=== PATIENT | male | born 1955 | race Caucasian/White ===

== ENCOUNTER 2020-04-11 12:49 | Emergency (ER) | payer OTHER, SELFPAY ==
[2020-04-11 13:00] VITALS: BP 139/92; PULSE 80; RESP 16; TEMP 36.9; O2SAT 98
--- NOTE | 2020-04-11 13:14 | ED.GENADULT ---
HPI - General Adult General Chief complaint: Ear Stated complaint: Clogged Ear Time Seen by Provider: 04/11/20 13:14 Source: patient and RN notes reviewed Mode of arrival: ambulatory Limitations: no limitations History of Present Illness HPI narrative: 64-year-old male presents with complaints of left ear being clogged with trouble hearing for 1 day. Believes it is due to earwax build up. Hydroperoxide with little to no relief. Some itching. Denies drainage, pain, or discomfort. Denies swimming or getting water into ear. Denies URI symptoms. No high fevers or chills. Denies injury to the ear. No nasal drainage and congestion. Denies nausea, vomiting, tinnitus, and dizziness. The patient reports he have not been diagnosed with COVID-19. The patient reports he is not waiting for the results of a COVID-19 lab test. The patient reports he do not have fever, weakness, fatigue, myalgia, or facial swelling. The patient reports he do not have a new or worsening cough or shortness of breath. Denies chest pain. The patient reports he do not have any loss of taste, sore throat, abdominal pain, and diarrhea. Tolerating po intake well. Denies recent traveling. Denies concerns for COVID-19 or exposures been home with limited outdoor exposure except for essential household needs and return home. At this time, patient is not suspected of having COVID-19. Some parts of this dictation were generated by voice recognition software and may contain typographical and/or grammatical inaccuracies. Related Data Home Medications Medication Instructions Recorded Confirmed alprazolam 0.5 mg tablet 0.5 mg PO BID 05/03/19 aspirin 81 mg tablet,delayed 81 mg PO DAILY 05/03/19 release buspirone 10 mg tablet 10 mg PO TID 05/03/19 calcium carbonate 500 mg calcium 500 mg PO DAILY 05/03/19 (1,250 mg) tablet citalopram 20 mg tablet 20 mg PO DAILY 05/03/19 niacin 500 mg tablet 500 mg PO DAILY 05/03/19 omega 6-bhy-gze-fish oil 1,000 mg 1 cap PO DAILY 05/03/19 (120 mg-180 mg) capsule sildenafil 100 mg tablet 100 mg PO DAILY PRN 05/03/19 testosterone cypionate 100 mg/mL 100 mg IM ONCE 05/03/19 intramuscular oil trazodone 50 mg tablet 50 mg PO BID 05/03/19 ibuprofen 600 mg tablet 600 mg PO TID 07/28/19 Allergies Allergy/AdvReac Type Severity Reaction Status Date / Time No Known Allergies Allergy Verified 11/10/19 09:34 Review of Systems Review of Systems: Narrative: CONSTITUTIONAL: Denies fever, chills, sweats. EYES: Denies visual changes, redness, discharge. ENT: Denies rhinorrhea, congestion, sore throat otalgia. Complains of left ear being clogged with trouble hearing. CARDIOVASCULAR: Denies chest pain, palpitations, edema. RESPIRATORY: Denies dyspnea, wheezing, cough. GASTROINTESTINAL: Denies abdominal pain, nausea, vomiting, diarrhea. SKIN: Denies rash or itching. MUSCULOSKELETAL: Denies acute back pain, joint pain, or myalgia. NEUROLOGIC: Denies numbness or focal weakness. PSYCHIATRIC: Denies anxiety or depression. All systems reviewed & are unremarkable except as noted in HPI and below PMFSH Past Medical History Medical History (Updated 04/11/20 @ 13:39 by KAYODE Andres) Anxiety Bilateral renal cysts Elevated PSA Hernia Impotence of organic origin Kidney stones Mixed hyperlipidemia On temper mill roller drug therapy Testicular hypofunction Vitamin D deficiency Surgical History Surgical History (Updated 04/11/20 @ 13:27 by KAYODE Andres) History of cholecystectomy History of hernia surgery LT inguinal History of lithotripsy several times History of tonsillectomy Family History Family History (Updated 04/11/20 @ 13:28 by KAYODE Andres) Father , Car accident Family history of diabetes mellitus in first degree relative Family history of heart disease in male family member before age 55 Sibling Family history of diabetes mellitus in first degree relative Moth
== END 2020-04-11 13:44 | disposition home or self-care (01) ==
PROVIDERS: Emergency Provider Nurse Practitioner Family; PCP Internal Medicine
DX: H61.22 Impacted cerumen, left ear (principal); E78.2 Mixed hyperlipidemia; F41.9 Anxiety disorder, unspecified
CPT/HCPCS: 69210; 99212; G0463

== ENCOUNTER 2020-04-23 11:22 | Outpatient (CLI) | payer OTHER, SELFPAY ==
--- NOTE | ~2020-04-23 | XR_ITS ---
XR abdomen/kub 1V 04/23/2020 11:37 Indication: Renal stone Procedure: KUB Comparison: Comparison to multiple prior studies sequentially, with oldest reviewed study dated 02/20. Findings: Bowel gas pattern is nonobstructive. There are multiple bilateral renal stones. There are c holecystectomy clips. Moderate colonic fecal loading. No definite stones are identified in the expect ed course of ureters. Impression: 1: Bilateral nephrolithiasis. Reviewed, dictated and finalized at location B. Impression: 1: Bilateral nephrolithiasis.
== END 2020-04-23 11:23 | disposition home or self-care (01) ==
PROVIDERS: PCP Internal Medicine; Visit Provider Urology
DX: N20.0 Calculus of kidney (principal)
CPT/HCPCS: 74018

== ENCOUNTER 2020-12-22 13:22 | Emergency (ER) | payer MEDICARE, SELFPAY ==
[2020-12-22 13:31] VITALS: BP 138/94; PULSE 93; RESP 16; TEMP 36.3; O2SAT 98
--- NOTE | 2020-12-22 13:35 | ED.GENADULT ---
HPI - General Adult General Chief complaint: Urogenital-Male Stated complaint: uti Time Seen by Provider: 12/22/20 13:35 Source: patient and RN notes reviewed Mode of arrival: ambulatory Limitations: no limitations History of Present Illness HPI narrative: 65-year-old male presents with complaints of dysuria for the past 7 days. ?Kvng reports increasing burning over the past 72 hours. ?Dysuria consists of burning and urgency.? No treatment.? Denies fever or chills.? Denies nausea, vomiting, and abdominal pain.? Tolerating liquids well. ?No significant abdominal pain.? No genital discharge.? No concerns for STDs, has not had intercourse in 2 years. ?No flank pain.? Exacerbating factors consist of urinating.? Denies hematuria or genital ?bleeding. ?Remains active. ?The patient reports he has not been diagnosed with COVID-19. ?The patient reports he received 2 Pfizer COVID-19 vaccines. ?The patient reports he is not waiting for the results of a COVID-19 lab test. ?The patient reports he does not have weakness, fatigue, or myalgia. ?The patient reports she does not have a new or worsening cough or shortness of breath. ?Denies chest pain. ?The patient reports he does not have any rhinorrhea, congestion, sore throat, loss of taste and/or smell, and diarrhea. ?Denies concerns for COVID-19 or exposure. ?At this time, the patient is not suspected of having COVID-19. Some parts of this dictation were generated by voice recognition software and may contain typographical and/or grammatical inaccuracies. Related Data Home Medications Medication Instructions Recorded Confirmed alprazolam 0.5 mg tablet 0.5 mg PO BID 05/03/19 11/08/20 aspirin 81 mg tablet,delayed 81 mg PO DAILY 05/03/19 11/08/20 release buspirone 10 mg tablet 10 mg PO TID 05/03/19 11/08/20 calcium carbonate 500 mg calcium 500 mg PO DAILY 05/03/19 11/08/20 (1,250 mg) tablet citalopram 20 mg tablet 20 mg PO DAILY 05/03/19 11/08/20 niacin 500 mg tablet 500 mg PO DAILY 05/03/19 11/08/20 omega 1-tjj-oob-fish oil 1,000 mg 1 cap PO DAILY 05/03/19 11/08/20 (120 mg-180 mg) capsule trazodone 50 mg tablet 50 mg PO ONCE tablet 11/08/20 11/08/20 testosterone cypionate mg 12/22/20 Allergies Allergy/AdvReac Type Severity Reaction Status Date / Time No Known Allergies Allergy Verified 11/08/20 10:23 Review of Systems Review of Systems: Narrative: CONSTITUTIONAL: Denies fever, chills, sweats. EYES: Denies visual changes, redness, discharge. ENT: Denies rhinorrhea, congestion, sore throat, otalgia. CARDIOVASCULAR: Denies chest pain, palpitations, edema. RESPIRATORY: Denies dyspnea, wheezing, cough. GASTROINTESTINAL: Denies abdominal pain, nausea, vomiting, diarrhea. GENITOURINARY: Complains of dysuria (burning and urgency), Denies hematuria, abnormal discharge. SKIN: Denies rash or itching. MUSCULOSKELETAL: Denies acute back pain, joint pain, or myalgia. NEUROLOGIC: Denies numbness or focal weakness. PSYCHIATRIC: Denies anxiety or depression. All other systems reviewed are negative, except as documented in HPI and below. 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
== END 2020-12-22 13:58 | disposition home or self-care (01) ==
PROVIDERS: Emergency Provider Nurse Practitioner Family; PCP Internal Medicine
DX: R30.0 Dysuria (principal); R31.9 Hematuria, unspecified; F41.9 Anxiety disorder, unspecified; E78.2 Mixed hyperlipidemia
CPT/HCPCS: 81003; 87086; 99213; G0463

== ENCOUNTER → 2020-12-31 13:34 | Outpatient (CLI) | payer MEDICARE, SELFPAY ==
--- NOTE | ~2020-12-31 | XR_ITS ---
EXAMINATION: XR abdomen/kub 1V EXAM DATE: 12/31/2020 14:27 INDICATION: gross hematuria. TECHNIQUE: Frontal projection of the upper abdomen, frontal projection lower abdomen/pelvis for inter pretation. Correlation is made to CT same date. FINDINGS: Multiple large bilateral nonobstructing kidney stones identified. The L3 sclerotic focus i s also identified, indicated overlying the right pedicle. Sacral sclerotic focus also identified. Cho lecystectomy clips. Nonobstructive bowel gas pattern. Mild to moderate bony degenerative changes. Catie g bases unremarkable. IMPRESSION: 1. Large bilateral nephrolithiasis. 2. Sacral, L3 sclerotic foci, could be bone islands but L3 focus has increased in size compared to 2 015. Consider correlating with PSA. Reviewed, dictated and finalized at location A. IMPRESSION: 1. Large bilateral nephrolithiasis. 2. Sacral, L3 sclerotic foci, could be bone islands but L3 focus has increased in size compared to 2015. Consider correlating with PSA.
--- NOTE | ~2020-12-31 | CT_ITS ---
EXAMINATION: CT abdomen pelvis wo/w con EXAM DATE: 12/31/2020 14:27 INDICATION: Gross hematuria. TECHNIQUE: Spiral CT of the abdomen and pelvis was performed without contrast. The patient was then injected with small bolus intravenous Omnipaque 350, followed by delay of approximately 10 minutes to allow collecting system to opacify. A post contrast scan abdomen and pelvis was performed during inj ection of remaining contrast. A total of 130 cc intravenous contrast was administered. The dose-vanesa th product (DLP) for this examination was 1420.76 mGy-cm. The exposure was tailored according to pat ient size (auto mA exposure control), and iterative reconstruction (ASIR) was used as additional dose reduction technique. Comparison is made to prior examination from 01/17/2015. FINDINGS: Multiple sizable bilateral kidney stones, larger stone burden on the left with a nonobstruc ting left renal pelvic stone measuring up to 11 mm in size, and on the right up to 8 mm in size. No h ydronephrosis. There is a mildly dense 1 cm lesion in the midpole of the left kidney, most likely hem orrhagic cyst (in 2015 there is a nonhemorrhagic cyst in this location which was much larger at 2.6 c m). Largest cyst on today's exam is in the right kidney at 4.0 cm. The kidneys enhance symmetrically . The calyces and opacified portions of ureters are unremarkable, without filling defects or focal suspicious strictures. The bladder is unremarkable. Prostate measures 5.2 cm transverse dimension, moderately enlarged. The liver, spleen, adrenal glands and pancreas are unremarkable. There are cholecystectomy clips. T here is no retroperitoneal or pelvic lymphadenopathy. Small left inguinal fat-containing hernia. There is extensive colonic colonic diverticulosis. There is no adjacent inflammatory change to sugge st diverticulitis. There is a 3 cm duodenal diverticulum. Stomach and small bowel are unremarkable. There is expected amount of colonic stool. No free intraperitoneal gas. The heart is normal in si ze. There are no pericardial or pleural effusions. The lung bases are unremarkable. There is sclerotic focus in L3 measuring 10 mm (previously 4 mm). The sacral sclerotic focus measures 1.5 cm, does not appear changed. Difficult to entirely exclude osteoblastic disease. Consider correl ating with PSA. IMPRESSION: 1. Large bilateral nephrolithiasis. 2. Moderate prostatomegaly. 3. Left renal lesion most likely hemorrhagic cysts. 4. Increase in size of L3 sclerotic focus compared to 2015; osteoblastic disease not excludable. The larger sacral sclerotic focus is unchanged. 5. Extensive colonic diverticulosis. 6. Duodenal diverticulum. 7. Left inguinal small hernia. Reviewed, dictated and finalized at location A. IMPRESSION: 1. Large bilateral nephrolithiasis. 2. Moderate prostatomegaly. 3. Left renal lesion most likely hemorrhagic cysts. 4. Increase in size of L3 sclerotic focus compared to 2015; osteoblastic disea se not excludable. The larger sacral sclerotic focus is unchanged. 5. Extensive colonic diverticulosis. 6. Duodenal diverticulum. 7. Left inguinal small hernia.
[2020-12-31 14:01] LABS: Estimated Glomerular Filt Rate 47
== END ==
PROVIDERS: Visit Provider Nurse Practitioner Adult Health
DX: R31.0 Gross hematuria (principal); N20.0 Calculus of kidney; N40.0 Benign prostatic hyperplasia without lower urinary tract symptoms; K57.30 Diverticulosis of large intestine without perforation or abscess without bleeding; K40.90 Unilateral inguinal hernia, without obstruction or gangrene, not specified as recurrent; K57.10 Diverticulosis of small intestine without perforation or abscess without bleeding
CPT/HCPCS: 74018; 74178; Q9967

== ENCOUNTER 2021-01-28 08:32 | Outpatient (CLI) | payer MEDICARE, SELFPAY ==
--- NOTE | 2021-01-28 09:04 | ECG_ITS ---
Measurements Intervals [place] Rate: 73 P: 50 [place]: 171 QRS: 3 QRSD: 105 T: 29 QT: 365 QTc: 402 Interpretive Statements SINUS RHYTHM DELAYED PRECORDIAL R/S TRANSITION BORDERLINE ECG Electronically Signed On 01-28-2021 9:19:32 CDT by Heri Howard D.O.
[2021-01-28 09:34] LABS: INR 0.8; Prothrombin Time 11.5 Seconds (11.1-14.7)
[2021-01-28 09:35] LABS: Partial Thromboplastin Time 27.1 SECONDS (22.3-36.8)
== END 2021-01-28 08:33 | disposition home or self-care (01) ==
PROVIDERS: Visit Provider Urology
DX: Z01.810 Encounter for preprocedural cardiovascular examination (principal); E78.2 Mixed hyperlipidemia; N20.0 Calculus of kidney
CPT/HCPCS: 36415; 85610; 85730; 87086; 93005

== ENCOUNTER 2021-02-01 02:34 | Day surgery (SDC) | payer MEDICARE, SELFPAY ==
[2021-01-23 10:26] VITALS: BMI 23.4
--- NOTE | 2021-01-28 07:51 | PM.HPGS ---
History of Present Illness History of Present Illness Consent: Risks, benefits, and alternatives have been discussed and questions answered. Patient agrees to proceed with procedure. Chief complaint: left renal stone Narrative: Kvng Pino is a 65 year old male his undergone evaluation in our office for elevated PSA in the recent past. He recently developed hematuria and upper urinary tract imaging demonstrates stones in his left kidney up to 11 millimeters. He presents for left ESWL. He is aware of the risk including, but not limited to, adverse cardiopulmonary events, persistent stone fragments, fragments that required distal therapy, hematuria an injury to his kidney. Review of Systems Cardiovascular: Cardiovascular: Denies chest pain, Denies lightheadedness, Denies palpitations and Denies dyspnea Respiratory: Respiratory: Denies dyspnea Gastrointestinal: Gastrointestinal: Denies diarrhea, Denies nausea and Denies vomiting Genitourinary: Genitourinary: Denies hematuria and Denies dysuria Endocrine: Endocrine: Denies palpitations PMFSH Past Medical History Medical History Anxiety Bilateral renal cysts Elevated PSA Hernia Impotence of organic origin Kidney stones Mixed hyperlipidemia On rn long term care drug therapy Testicular hypofunction Viral illness Vitamin D deficiency Surgical History Surgical History History of cholecystectomy History of hernia surgery LT inguinal History of lithotripsy several times History of tonsillectomy Family History Family History Father , Car accident Family history of diabetes mellitus in first degree relative Family history of heart disease in male family member before age 55 Sibling Family history of diabetes mellitus in first degree relative Mother , Multiple myeloma Family history of heart disease in male family member before age 55 Other Diabetes mellitus Family history of cardiovascular disease Family history of malignant neoplasm Hypertension Social History Social History Smoking status: Never smoker Second hand tobacco smoke exposure: No Alcohol intake: current Alcohol use details: rarely Substance use: never Additional living arrangements comments: Gender identity (if verbalized by the patient): Male Spiritual care concerns: No Meds Home Medications and Allergies Home Medications Medication Instructions Recorded Confirmed Type alprazolam 0.5 mg tablet 0.5 mg PO BID 05/03/19 01/23/21 History aspirin 81 mg tablet,delayed 81 mg PO DAILY 05/03/19 01/23/21 History release buspirone 10 mg tablet 10 mg PO TID 05/03/19 01/23/21 History calcium carbonate 500 mg calcium 500 mg PO BID 05/03/19 01/23/21 History (1,250 mg) tablet citalopram 20 mg tablet 20 mg PO QAM 05/03/19 01/23/21 History niacin 500 mg tablet 500 mg PO DAILY 05/03/19 01/23/21 History omega 7-ylo-kxl-fish oil 1,000 mg 1 cap PO BID 05/03/19 01/23/21 History (120 mg-180 mg) capsule trazodone 50 mg tablet 50 mg PO HS tablet 11/08/20 01/23/21 History atorvastatin 20 mg PO HS 01/23/21 01/23/21 History cholecalciferol (vitamin D3) 25 mcg PO DAILY 01/23/21 01/23/21 History Allergies Allergy/AdvReac Type Severity Reaction Status Date / Time No Known Allergies Allergy Verified 01/23/21 10:18 Exam Const: General: no acute distress Resp: Effort & Inspection: normal respiratory effort GI: Inspection: non-distended GI Palp: No abdominal tenderness and No Guarding due to palpation present (GI) Auscultation: normal bowel sounds Assessment and Plan Assessment and plan (1) Elevated PSA: Code(s): R97.20 - Elevated prostate specific antigen [PSA] Status: Acute (2) Bilateral kidney stones:
[2021-02-01] VITALS (8 sets, daily range): BP systolic 97–147; BP diastolic 73–92; PULSE 63–77; RESP 12–16; TEMP 36.2–36.5; O2SAT 95–99
--- NOTE | ~2021-02-01 | XR_ITS ---
XR abdomen/kub 1V 02/01/2021 07:37 Indication: Renal stones. Preop ESWL. Procedure: KUB Comparison: Comparison to multiple prior studies sequentially, with oldest reviewed study dated 03/31. Findings: Bowel gas pattern is nonobstructive. There are multiple bilateral renal stones, largest in the left kidney measuring approximately 13 mm maximum dimension. There are cholecystectomy clips. Mil d dextrocurvature of the lumbar spine. Mild lumbar spondylosis. Bowel gas pattern nonobstructive. Mod erate colonic fecal loading. Impression: 1: Bilateral nephrolithiasis. Reviewed, dictated and finalized at location A. Impression: 1: Bilateral nephrolithiasis.
--- NOTE | 2021-02-01 06:36 | WPDHPUPDATE1 ---
History and Physical Update Update Date/Time: 02/01/21 06:36 History and Physical has been reviewed, including an updated exam of the patient. There are NO changes in the patient's condition. Risks, benefits, and alternatives have been discussed and questions answered. Patient agrees to proceed with procedure.
--- NOTE | 2021-02-01 08:16 | WPDANESEPPF ---
Anes - Initial Pre Proc Eval Procedure: Operation Date: 02/01/21 09:30 Proposed Procedures p Left Renal Extracorporeal Shock Wave Lithotripsy - Baldev Vázquez MD Date/Time: 02/01/21 08:16 Surgeon: Baldev Vázquez MD Pre Op Diagnosis: left renal stone Patient Data Age: 65 Gender: M Height: 1.7 m Weight: 68 kg Allergies Allergy/AdvReac Type Severity Reaction Status Date / Time No Known Allergies Allergy Verified 01/23/21 10:18 Home Medications Medication Instructions Recorded Confirmed Type alprazolam 0.5 mg tablet 0.5 mg PO BID 05/03/19 01/23/21 History aspirin 81 mg tablet,delayed 81 mg PO DAILY 05/03/19 01/23/21 History release buspirone 10 mg tablet 10 mg PO TID 05/03/19 01/23/21 History calcium carbonate 500 mg calcium 500 mg PO BID 05/03/19 01/23/21 History (1,250 mg) tablet citalopram 20 mg tablet 20 mg PO QAM 05/03/19 01/23/21 History niacin 500 mg tablet 500 mg PO DAILY 05/03/19 01/23/21 History omega 9-oig-ujf-fish oil 1,000 mg 1 cap PO BID 05/03/19 01/23/21 History (120 mg-180 mg) capsule trazodone 50 mg tablet 50 mg PO HS tablet 11/08/20 01/23/21 History atorvastatin 20 mg PO HS 01/23/21 01/23/21 History cholecalciferol (vitamin D3) 25 mcg PO DAILY 01/23/21 01/23/21 History Patient hx anesthesia problems: none Family hx anesthesia problems: none PMFSH Past Medical History Medical History Anxiety Bilateral renal cysts Elevated PSA Hernia Impotence of organic origin Kidney stones Mixed hyperlipidemia On correction drug therapy Testicular hypofunction Viral illness Vitamin D deficiency Surgical History Surgical History History of cholecystectomy History of hernia surgery LT inguinal History of lithotripsy several times History of tonsillectomy Family History Family History Father , Car accident Family history of diabetes mellitus in first degree relative Family history of heart disease in male family member before age 55 Sibling Family history of diabetes mellitus in first degree relative Mother , Multiple myeloma Family history of heart disease in male family member before age 55 Other Diabetes mellitus Family history of cardiovascular disease Family history of malignant neoplasm Hypertension Social History Social History Smoking status: Never smoker Second hand tobacco smoke exposure: No Alcohol intake: current Alcohol use details: rarely Substance use: never Living arrangements: with family Additional living arrangements comments: Gender identity (if verbalized by the patient): Male Spiritual care concerns: No Anes - Eval Final PreProcedure Day of Procedure 02/01/21 08:16 Patient weight: normal Heart: regular rate and rhythm Lungs: clear to auscultation Airway: Mallampati scale class II Neurological: alert and oriented Last oral intake: >/= 8 hours ASA classification: II Emergent: no Anesthetic plan: proceed Anesthesia type and monitoring: general LMA and standard monitoring Informed Consent: The patient's anesthetic plan and its attendant risks and benefits were discussed with the patient/family/POA. Questions were solicited and answers provided to the satisfaction of the patient/family/POA.
[2021-02-01] MEDS: LACTATED RINGERS 1,000 ML 30 ML IV CONT (08:20)
[2021-02-01] MEDS: ceFAZolin 2 GM/D5W 50 ML 2 GM/50 ML BAG IVPB (09:13)
--- NOTE | 2021-02-01 09:33 | W.PM.PROC2 ---
Procedure Note - Detailed Date of Procedure 02/01/21 Pre-op Diagnosis Left renal stones Post-op Diagnosis same Procedure Performed Left ESWL Surgeon Baldev Vázquez MD Anesthesia general Description of Procedure The patient was brought to the operative suite where he was placed in the supine position on the Dornier lithotripsy table. The focal point of the lithotripter was placed at a 13mm left lower pole calculus. A total of 2500 shocks were delivered at a power setting of 4. There appeared to be good fragmentation of the stone. The patient tolerated the procedure well and was taken to the recovery room in good condition. Estimated Blood Loss 0 Drains No Packing No Pathology none sent Complications No immediate complications Condition stable Disposition PACU
== END 2021-02-01 11:11 | disposition home or self-care (01) ==
PROVIDERS: Visit Provider Urology
PROC: (CPT 50590; principal; 2021-02-01 09:30)
DX: N20.0 Calculus of kidney (principal); E78.2 Mixed hyperlipidemia; R97.20 Elevated prostate specific antigen [PSA]; E55.9 Vitamin D deficiency, unspecified; F41.9 Anxiety disorder, unspecified; Z79.82 Long term (current) use of aspirin
CPT/HCPCS: 50590; 36415; 74018; 80053; 81001; 85025; 96361; 96365; 96375; 99284; J0690; J0696; J1100; J2270; J2405; J2704; J3010; J7030; J7120

== ENCOUNTER 2021-02-01 14:34 | Emergency (ER) | payer MEDICARE, SELFPAY ==
[2021-02-01 14:41] VITALS: BP 124/82; PULSE 61; RESP 16; TEMP 36.4; O2SAT 96
[2021-02-01 15:10] LABS: Basophils Percent Auto 0.2 % (0.2-1.2); Hematocrit 40.8 % (42.0-52.0); Hemoglobin 13.3 g/dL (14.0-18.0); Immature Granulocyte Absolute 0.23 K/mm3 (0.00-0.031); Immature Granulocyte Percent A 1.3 % (0-0.5); Lymphocytes Percent Auto 6.1 % (18.3-44.2); Mean Corpuscular HGB Conc 32.6 g/dl (32-36); Mean Corpuscular Hemoglobin 28.5 pg (26-34); Mean Corpuscular Volume 87.6 fl (80-100); Mean Platelet Volume 12.6 fl (7.4-10.4); Monocytes Absolute Auto 0.2 K/mm3 (0.1-0.6); Monocytes Percent Auto 1.3 % (2.6-8.5); Neutrophils Absolute Auto 16.4 K/mm3 (1.3-6.7); Neutrophils Percent Auto 91.1 % (45.5-73.1); Platelet Count Result 195 k/mm3 (150-375); Red Blood Count 4.66 M/mm3 (4.6-6.20); Red Cell Distribution Width 13.7 % (11.5-14.5)
[2021-02-01] MEDS: ONDANSETRON INJ 4 MG/2 ML VIAL IV PUSH (15:13)
[2021-02-01] MEDS: SODIUM CHLORIDE 0.9% IV 1,000 ML 999 ML IV CONT (15:13)
[2021-02-01] MEDS: FAMOTIDINE 20 MG/2 ML VIAL IV PUSH (15:13)
[2021-02-01] MEDS: MORPHINE SULFATE (*CRX) 4 MG/ML INJ IV PUSH (15:14)
[2021-02-01 15:22] LABS: Alanine Aminotransferase 29 U/L (4-50); Alkaline Phosphatase 79 U/L (38-126); Anion Gap 11 mmol/L (8-16); Aspartate Amino Transferase 26 U/L (17-59); Bilirubin,Total 1.2 mg/dL (0.2-1.3); Blood Urea Nitrogen 20 mg/dL (9-20); Calcium 9.2 mg/dL (8.4-10.2); Carbon Dioxide 23 mmol/L (22-30); Chloride 103 mmol/L (98-107); Estimated CRCL calculation 41 ml/min; Estimated Glomerular Filt Rate 47; Glucose 189 mg/dL (65-110); Potassium 4.3 mmol/L (3.4-5.0); Sodium 137 mmol/L (137-145)
[2021-02-01 15:38] LABS: Add Urine Microscopic? YES; Appearance Urine Cloudy (Clear); Bilirubin Urine Negative (Negative); Blood Urine 3+ (Negative); Color Urine Red (Yellow); Glucose Urine UA Negative (Negative); Ketones Urine Negative (Negative); Leukocyte Esterase Ur Negative LEU/UL (Negative); Mucus Urine Rare /lpf; Nitrate Urine Negative (Negative); Protein Urine 2+ mg/dL (Negative); RBC Urine >75 /hpf (0-2); Specific Grav Ur 1.016 (1.001-1.035); Urobilinogen Urine Negative mg/dL (<2.0)
--- NOTE | 2021-02-01 16:07 | ED.GENADULT ---
HPI - General Adult General Chief complaint: Urogenital-Male Stated complaint: outpt surgery this morning. extreme pain Time Seen by Provider: 02/01/21 14:42 Source: patient and RN notes reviewed Mode of arrival: ambulatory Limitations: no limitations History of Present Illness HPI narrative: Patient is 65-year-old male who presents with left flank pain status post lithotripsy this morning patient notes left flank pain status post lithotripsy this morning patient has taken hydrocodone but continues to have moderate aching pain with nausea denies other complaints presents slightly uncomfortable but nondistressed Related Data Home Medications Medication Instructions Recorded Confirmed alprazolam 0.5 mg tablet 0.5 mg PO BID 05/03/19 02/01/21 aspirin 81 mg tablet,delayed 81 mg PO DAILY 05/03/19 02/01/21 release buspirone 10 mg tablet 10 mg PO TID 05/03/19 02/01/21 calcium carbonate 500 mg calcium 500 mg PO BID 05/03/19 02/01/21 (1,250 mg) tablet citalopram 20 mg tablet 20 mg PO QAM 05/03/19 02/01/21 niacin 500 mg tablet 500 mg PO DAILY 05/03/19 02/01/21 omega 1-pqk-yip-fish oil 1,000 mg 1 cap PO BID 05/03/19 02/01/21 (120 mg-180 mg) capsule trazodone 50 mg tablet 50 mg PO HS tablet 11/08/20 02/01/21 atorvastatin 20 mg PO HS 01/23/21 02/01/21 cholecalciferol (vitamin D3) 25 mcg PO DAILY 01/23/21 02/01/21 Allergies Allergy/AdvReac Type Severity Reaction Status Date / Time No Known Allergies Allergy Verified 02/01/21 08:24 Review of Systems Review of Systems: All systems reviewed & are unremarkable except as noted in HPI and below PMFSH Past Medical History Medical History Anxiety Bilateral renal cysts Elevated PSA Hernia Impotence of organic origin Kidney stones Mixed hyperlipidemia On senior care drug therapy Testicular hypofunction Viral illness Vitamin D deficiency Surgical History Surgical History History of cholecystectomy History of hernia surgery LT inguinal History of lithotripsy several times History of tonsillectomy Family History Family History Father , Car accident Family history of diabetes mellitus in first degree relative Family history of heart disease in male family member before age 55 Sibling Family history of diabetes mellitus in first degree relative Mother , Multiple myeloma Family history of heart disease in male family member before age 55 Other Diabetes mellitus Family history of cardiovascular disease Family history of malignant neoplasm Hypertension Social History Social History Smoking status: Never smoker Second hand tobacco smoke exposure: No Alcohol intake: current Alcohol use details: rarely Substance use: never Additional living arrangements comments: Gender identity (if verbalized by the patient): Male Spiritual care concerns: No Exam Narrative: GENERAL: Well-appearing, well-nourished, and in no acute distress. HEAD: Normocephalic, atraumatic. EYES: PERRLA and EOMI. ENT: Nares clear, no rhinorrhea or epistaxis. Mucous membranes moist. CHEST: Clear to auscultation. No respiratory distress. No wheezes rales or rhonchi HEART: Regular rate and rhythm. No murmur heard. Normal peripheral pulses. ABDOMEN: Soft, nontender, nondistended EXTREMITIES: Normal range of motion. No edema. SKIN: Warm, dry, no rash. NEURO: No focal deficits. Alert and oriented x3. Cranial nerves II through XII grossly intact PSYCH: Normal mood and affect. Course Course Emergency Course: Patient in the room no distress aware of case findings treatment plan diagnosis felt appropriate for outpatient reevaluation aware of discussion with urology patient's evaluation was unremarkable he was hydrated given joaquim
--- NOTE | 2021-02-01 16:07 | PC.NURSE ---
called main lab at 1605 to ask if they had the urine on this pt, they said no, i repeated that the nurse just sent the urine down in tubes a little bit before my call and i asked again if they could check, they said yes okay they will run it, spoke with Tavon
[2021-02-01 17:08] VITALS: BP 110/74; PULSE 85; RESP 16; TEMP 36.6; O2SAT 95
== END 2021-02-01 17:20 | disposition home or self-care (01) ==
PROVIDERS: Emergency Medicine Emergency Medical Services; Emergency Provider Emergency Medicine; PCP Internal Medicine
DX: G89.18 Other acute postprocedural pain (principal); R10.9 Unspecified abdominal pain; E78.2 Mixed hyperlipidemia; E55.9 Vitamin D deficiency, unspecified; F41.9 Anxiety disorder, unspecified; Z79.82 Long term (current) use of aspirin; Z87.442 Personal history of urinary calculi
CPT/HCPCS: 36415; 80053; 81001; 85025; 96361; 96365; 96375; 99284; J0696; J2270; J2405; J7030

== ENCOUNTER 2021-02-06 04:14 | Inpatient (IN) | payer MEDICARE, SELFPAY ==
[2021-02-06] VITALS (9 sets, daily range): BP systolic 138–160; BP diastolic 80–94; PULSE 95–126; RESP 12–18; TEMP 36.3–38.4; O2SAT 94–100
--- NOTE | ~2021-02-06 | CT_ITS ---
EXAMINATION: CT abdomen pelvis wo con DATE: 02/06/2021 05:39 INDICATION: Fever. Recent lithotripsy. History of kidney stones. TECHNIQUE: Computed tomography (CT) of the abdomen and pelvis was performed without intravenous contr ast. Automated exposure control and iterative reconstruction technique were employed. Exam dose: 458 .54 mGy-cm total exam DLP. COMPARISON: 12/31/2020 CT abdomen pelvis without and subsequently with IV contrast material 02/01/2021 and 12/12/201902/2021 KUB examinations FINDINGS: Lingular and bilateral left greater than right lower lobe dependent atelectasis. Slight left pleural effusion. Normal heart size. No pericardial effusion. Status post cholecystectomy. No bile duct dilatation. No hepatic, pancreatic space-occupying mass lesion. No pancreatic calcification or ductal dilatation. Likely benign 12 mm splenic cyst. Normal splenic size. Normal morphology of the adrenal glands. Bilateral nonobstructive nephrolithiasis. No ureteral calculus or hydroureteronephrosis. Approximatel y 3.8 cm right renal cyst. There is a large posterolateral left perinephric hematoma, extending into the posterior perinephric s pace, with thickening of the anterior and posterior pararenal fascia on the left. Consider CT examina tion with IV contrast material to evaluate for possible active bleeding. There is abdominal aortic calcification but no aneurysm. No intraperitoneal or retroperitoneal or pel isaias mass lesion or adenopathy or ascites. There is prostate enlargement and calcification. The urinary bladder is unremarkable. Medially directed cecum consistent with retained cecal mesentery. Normal appendix. There are numerous diverticula of left and right colon; no CT evidence of diverticulitis. No bowel ob struction, bowel wall thickening, pneumatosis or intraperitoneal free air is evident. Sclerotic lesions of the third lumbar vertebral body and sacrum may be bone islands, but osteosclerot ic metastases are not definitively excluded; radionuclide bone scan can help differentiate these poss ibilities. IMPRESSION: Prominent left perinephric hematoma extending into the posterior perinephric space Bilateral nonobstructive nephrolithiasis 3.8 cm right renal cyst Status post cholecystectomy Normal appendix Extensive diverticulosis of left and right colon; no CT evidence of diverticulitis Reviewed, dictated and finalized at Location [facility]. Reviewed, dictated and finalized at location B. IMPRESSION: Prominent left perinephric hematoma extending into the posterior p erinephric space Bilateral nonobstructive nephrolithiasis 3.8 cm right renal cyst Status post cholecystectomy Normal appendix Extensive diverticulosis of left and right colon; no CT evidence of diverticuli tis
--- NOTE | ~2021-02-06 | XR_ITS ---
EXAMINATION: XR chest 1V portable DATE: 02/06/2021 06:14 INDICATION: Fever TECHNIQUE: frontal view of the chest was obtained. COMPARISON: CT abdomen dated 02/06/2021 FINDINGS: Linear discoid atelectasis in the right upper, left lower lobe and lingula. No other airspace opaciti es, pulmonary edema, pleural effusion or pneumothorax. The cardiomediastinal silhouette is normal. Ch olecystectomy clips in right upper quadrant. IMPRESSION: 1. Scattered discoid atelectasis. No acute cardiopulmonary disease. Reviewed, dictated and finalized at location A.
[2021-02-06 05:28] LABS: Add Urine Microscopic? YES; Appearance Urine Clear (Clear); Bilirubin Urine Negative (Negative); Blood Urine 1+ (Negative); Color Urine Straw (Yellow); Glucose Urine UA Negative (Negative); Ketones Urine Negative (Negative); Leukocyte Esterase Ur Negative LEU/UL (Negative); Nitrate Urine Negative (Negative); Protein Urine Negative (Negative); Urobilinogen Urine Negative mg/dL (<2.0); WBC Urine 0-3 /hpf
--- NOTE | 2021-02-06 05:34 | WPDEDEXPGENP ---
HPI - General Ped General Chief complaint: Fever Stated complaint: fever Time Seen by Provider: 02/06/21 05:01 History of Present Illness HPI narrative: Patient is a 65-year-old gentleman who presents the emergency department with chief complaint of fever. Patient reports that he recently had a lithotripsy procedure and has been passing stones patient states that he just finished up a course of Keflex and noticed today that he started running a fever. Tonight when the temperature had 102 he called his urologist exchange and they recommended the patient come to the emergency department. The patient took Tylenol prior to arrival and reports that he is feeling a little better right now but states that he is concerned since he had multiple stones that he was passing. Patient denies cough denies shortness of breath denies abdominal pain. Patient denies dysuria reports that he has had a reduction in the amount of stone fragments that he has been passing when he urinates. The patient reports that he has been vaccinated for COVID-19. Related Data Home Medications Medication Instructions Recorded Confirmed alprazolam 0.5 mg tablet 0.5 mg PO BID 05/03/19 02/01/21 aspirin 81 mg tablet,delayed 81 mg PO DAILY 05/03/19 02/01/21 release buspirone 10 mg tablet 10 mg PO TID 05/03/19 02/01/21 calcium carbonate 500 mg calcium 500 mg PO BID 05/03/19 02/01/21 (1,250 mg) tablet citalopram 20 mg tablet 20 mg PO QAM 05/03/19 02/01/21 niacin 500 mg tablet 500 mg PO DAILY 05/03/19 02/01/21 omega 1-vcy-jma-fish oil 1,000 mg 1 cap PO BID 05/03/19 02/01/21 (120 mg-180 mg) capsule trazodone 50 mg tablet 50 mg PO HS tablet 11/08/20 02/01/21 atorvastatin 20 mg PO HS 01/23/21 02/01/21 cholecalciferol (vitamin D3) 25 mcg PO DAILY 01/23/21 02/01/21 Allergies Allergy/AdvReac Type Severity Reaction Status Date / Time No Known Allergies Allergy Verified 02/01/21 08:24 Pediatric Review of Systems Review of Systems: A 10 system review of systems was completed on the patient and is negative except for what is stated in the HPI. Nursing and ancillary documentation was reviewed. 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 Testicular hypofunction Viral illness Vitamin D deficiency Surgical History Surgical History History of cholecystectomy History of hernia surgery LT inguinal History of lithotripsy several times History of tonsillectomy Family History Family History Father , Car accident Family history of diabetes mellitus in first degree relative Family history of heart disease in male family member before age 55 Sibling Family history of diabetes mellitus in first degree relative Mother , Multiple myeloma Family history of heart disease in male family member before age 55 Other Diabetes mellitus Family history of cardiovascular disease Family history of malignant neoplasm Hypertension Social History Social History Smoking status: Never smoker Second hand tobacco smoke exposure: No Alcohol intake: current Alcohol use details: rarely Substance use: never Additional living arrangements comments: Gender identity (if verbalized by the patient): Male Spiritual care concerns: No Pediatric Exam Narrative: Physical exam: GENERAL: Well-appearing, well-nourished, and in no acute distress. HEAD: Normocephalic, atraumatic. EYES: PERRLA and EOMI. ENT: Nares clear, no rhinorrhea or epistaxis. Mucous membranes moist. NECK: Supple. CHEST: Clear to auscultation. No respiratory distress. HEART: Regul
[2021-02-06 05:39] LABS: Specific Grav Ur 1.004 (1.001-1.035)
[2021-02-06] MEDS: ONDANSETRON INJ 4 MG/2 ML VIAL IV PUSH ×2 (06:36→20:38)
[2021-02-06] MEDS: SODIUM CHLORIDE 0.9% IV 1,000 ML 999 ML IV CONT (06:36)
[2021-02-06 06:48] LABS: Hematocrit 35.5 % (42.0-52.0); Hemoglobin 11.6 g/dL (14.0-18.0); Mean Corpuscular HGB Conc 32.7 g/dl (32-36); Mean Corpuscular Hemoglobin 28.6 pg (26-34); Mean Corpuscular Volume 87.4 fl (80-100); Platelet Count Result 217 k/mm3 (150-375); Red Blood Count 4.06 M/mm3 (4.6-6.20); Red Cell Distribution Width 13.5 % (11.5-14.5); White Blood Count 15.3 K/mm3 (4.5-10.0)
[2021-02-06 06:58] LABS: Alanine Aminotransferase 28 U/L (4-50); Albumin Level 4.2 g/dL (3.5-5.1); Alkaline Phosphatase 85 U/L (38-126); Anion Gap 7 mmol/L (8-16); Aspartate Amino Transferase 32 U/L (17-59); Bilirubin,Total 2.7 mg/dL (0.2-1.3); Blood Urea Nitrogen 21 mg/dL (9-20); Calcium 9.7 mg/dL (8.4-10.2); Carbon Dioxide 27 mmol/L (22-30); Chloride 103 mmol/L (98-107); Estimated Glomerular Filt Rate 47; Glucose 125 mg/dL (65-110); Lactic Acid Reflex 1.1 mmol/L (0.7-2.1); Potassium 4.6 mmol/L (3.4-5.0); Sodium 137 mmol/L (137-145)
[2021-02-06 08:20] LABS: Hematocrit 33.4 % (42.0-52.0); Hemoglobin 11.1 g/dL (14.0-18.0)
--- NOTE | 2021-02-06 09:06 | ADMGEN ---
This patient, Kvng Pino, was admitted to 3 [facility] Surg Room 327-01. Patient/family oriented to hospital policies and general routines including ID bracelet, bed and alarms, visiting hours, pain management, procedures, bathroom and other care routines, personal items, smoking policy, room service/diet, and visiting hours. Information on how to activate the Rapid Response Team has been discussed. Patient/Family are encouraged to report perceived risks to care and to ask questions if they do not understand what they are told or what they should do.
--- NOTE | 2021-02-06 09:25 | WPDURCON ---
Assessment and Plan Assessment and plan (1) Bilateral kidney stones: Code(s): N20.0 - Calculus of kidney Status: Acute Assessment and Plan: Patient states he has passed some stone particles, there are still stones in the left kidney, will re-evaluate with imaging in a few weeks to verify that stones have passed. He is schedule to do the right ESWL on 02/15/2021. (2) Perinephric hematoma: Code(s): S37.019A - Minor contusion of unspecified kidney, initial encounter Status: Acute Assessment and Plan: Will watch H&H q 6 and monitor creatinine over the next 24 hours, then decide when to re-image at that point in time. Continue IV fluids. Secondary to infection/ESWL. No plans for surger at this time. (3) UTI (urinary tract infection): Code(s): N39.0 - Urinary tract infection, site not specified Status: Acute Assessment and Plan: Continue IV antibiotics, will tailor to culture results, his WBC is decreasing, will continue to monitor. Urology Consult Note HPI Date Seen: 02/06/21 Requesting Physician: Baldev Vázquez MD Primary Care Provider: Kalin Lopez DO Consult Narrative Narrative: Kvng Pino is a 65 year old male who is s/p Left ESWL as of 02/01/[address] Vázquez. He came in through the ER with c/o of a fever of 102 that started last night accompanied by some nausea and left flank pain. He was previously on Keflex but finished it prior to the surgery. He reports passing some stone fragments and some mild hematuria, otherwise no abdominal pain, dysuria or difficulty with urination. His H&H initially on arrival was 11.6 and 35.5 and a repeat H&H was 11.1 and 33.4. Creatinine is 1.50, his baseline appears to be at 1.26 as of 11/2020. His WBC is elevated at 15.3 down from 18,000 on 02/01/2021. He is also tachycardic and hypertensive. His urine appears to be infected, blood and urine cultures are pending. CT scan on arrival shows prominent left perinephric hematoma extending into the post perinephric space and noted bilateral non obstructive stones. He also came to the ER after he was discharged from his procedure later that evening on 02/01/2021 for severe post op pain, he was given Morphine which helped and was sent home. Review of Systems Cardiovascular: Cardiovascular: Denies chest pain Respiratory: Respiratory: Reports no additional respiratory complaints Gastrointestinal: Gastrointestinal: Denies abdominal pain, Reports nausea and Denies vomiting Genitourinary: Genitourinary: Reports hematuria, Denies dysuria, Reports flank pain, Denies urinary frequency, Denies urinary hesitancy, Denies urinary incontinence and Denies urinary urgency [facility] Past Medical History Medical History Anxiety Bilateral renal cysts Elevated PSA Hernia Impotence of organic origin Kidney stones Mixed hyperlipidemia On skilled nursing drug therapy Testicular hypofunction Viral illness Vitamin D deficiency Surgical History Surgical History History of cholecystectomy History of hernia surgery LT inguinal History of lithotripsy several times History of tonsillectomy Family History Family History Father , Car accident Family history of diabetes mellitus in first degree relative Family history of heart disease in male family member before age 55 Sibling Family history of diabetes mellitus in first degree relative Mother , Multiple myeloma Family history of heart disease in male family member before age 55 Other Diabetes mellitus Family history of cardiovascular disease Family history of malignant neoplasm Hypertension Social History Social History Smoking status: Never smoker Second hand tobacco smoke exposure: No Alcohol intak
[2021-02-06] MEDS: DEXTROSE 5%/0.45% SOD CHL 1,000 ML 100 ML IV CONT ×2 (10:11→20:42)
[2021-02-06 13:21] LABS: Hematocrit 33.3 % (42.0-52.0); Hemoglobin 11.1 g/dL (14.0-18.0)
[2021-02-06] MEDS: ALPRAZolam (*CRX) 0.5 MG TABLET PO (16:32)
[2021-02-06] MEDS: busPIRone HCL 10 MG TABLET PO (17:43)
[2021-02-06] MEDS: CALCIUM CARBONATE (OSCAL) 500 MG TABLET PO (17:43)
[2021-02-06 19:43] LABS: Hematocrit 33.6 % (42.0-52.0); Hemoglobin 11.1 g/dL (14.0-18.0)
[2021-02-06] MEDS: ATORVASTATIN 20 MG TABLET PO (20:22)
[2021-02-06] MEDS: HYDROmorphone HCL INJ (*CRX) 1 MG/ML SYR 0.5 MG IV PUSH (20:43)
[2021-02-07 02:20] LABS: Basophils Percent Auto 0.1 % (0.2-1.2); Eosinophils Absolute Auto 0.1 K/mm3 (0-0.3); Eosinophils Percent Auto 0.3 % (0-4.4); Hematocrit 34.7 % (42.0-52.0); Hemoglobin 11.3 g/dL (14.0-18.0); Immature Granulocyte Absolute 0.11 K/mm3 (0.00-0.031); Immature Granulocyte Percent A 0.7 % (0-0.5); Lymphocytes Absolute Auto 1.29 K/mm3 (0.9-3.2); Lymphocytes Percent Auto 8.7 % (18.3-44.2); Mean Corpuscular HGB Conc 32.6 g/dl (32-36); Mean Corpuscular Hemoglobin 28.6 pg (26-34); Mean Corpuscular Volume 87.8 fl (80-100); Mean Platelet Volume 11.9 fl (7.4-10.4); Monocytes Absolute Auto 1.7 K/mm3 (0.1-0.6); Monocytes Percent Auto 11.4 % (2.6-8.5); Neutrophils Absolute Auto 11.7 K/mm3 (1.3-6.7); Neutrophils Percent Auto 78.8 % (45.5-73.1); Platelet Count Result 199 k/mm3 (150-375); Red Blood Count 3.95 M/mm3 (4.6-6.20); Red Cell Distribution Width 13.4 % (11.5-14.5); White Blood Count 14.9 K/mm3 (4.5-10.0)
[2021-02-07 03:11] LABS: Anion Gap 2 mmol/L (8-16); Blood Urea Nitrogen 15 mg/dL (9-20); Calcium 8.9 mg/dL (8.4-10.2); Carbon Dioxide 27 mmol/L (22-30); Chloride 106 mmol/L (98-107); Estimated CRCL calculation 51 ml/min; Estimated Glomerular Filt Rate > 60; Glucose 129 mg/dL (65-110); Potassium 4.4 mmol/L (3.4-5.0); Sodium 135 mmol/L (137-145)
[2021-02-07] MEDS: HYDROcodone/acetaminophen (*CRX) 5-325 MG TABLET 2 TAB PO (05:14)
[2021-02-07 06:00] VITALS: BP 151/96; PULSE 105; RESP 18; TEMP 36.8; O2SAT 94
[2021-02-07] MEDS: DEXTROSE 5%/0.45% SOD CHL 1,000 ML 100 ML IV CONT (06:20)
--- NOTE | 2021-02-07 06:47 | WPDUROPN2 ---
Progress Note: A&P Assessment and Plan (1) Perinephric hematoma: Code(s): S37.019A - Minor contusion of unspecified kidney, initial encounter Status: Acute (2) Bilateral kidney stones: Code(s): N20.0 - Calculus of kidney Status: Acute Assessment and Plan: Small to moderate size left perinephric hematoma following left ESWL. Patient's pain is improved and H&H were stable. He has been afebrile since admission. Targeting discharge mid-day today, if he ambulates and eats well this morning. Subjective Subjective Date/Time Seen: 02/07/21 06:47 Comfortable except for dislike of bed/pillow. Tolerating diet. Review of Systems Cardiovascular: Cardiovascular: Denies chest pain, Denies lightheadedness, Denies palpitations and Denies dyspnea Respiratory: Respiratory: Denies dyspnea Gastrointestinal: Gastrointestinal: Denies diarrhea, Denies nausea and Denies vomiting Genitourinary: Genitourinary: Denies hematuria and Denies dysuria Endocrine: Endocrine: Denies palpitations Exam Const: General: no acute distress Resp: Effort & Inspection: normal respiratory effort GI: Inspection: non-distended GI Palp: No abdominal tenderness and No Guarding due to palpation present (GI) Auscultation: normal bowel sounds Objective Data Vital Signs Vital Signs: Vital Signs - 24 hr 02/06/21 07:30 02/06/21 08:35 02/06/21 08:57 Temperature 99.1 F Pulse Rate 97 101 H Respiratory Rate 15 15 Blood Pressure 151/94 H 151/94 H Pulse Oximetry 100 96 02/06/21 09:08 02/06/21 14:00 02/06/21 14:48 Temperature 97.3 F L 97.3 F L Pulse Rate 97 107 H Respiratory Rate 12 16 Blood Pressure 154/89 H 138/83 Pulse Oximetry 97 95 98 02/06/21 22:00 02/07/21 06:00 Temperature 97.6 F 98.2 F Pulse Rate 95 105 H Respiratory Rate 16 18 Blood Pressure 144/83 H 151/96 H Pulse Oximetry 98 94 Intake/Output Intake/Output: Intake & Output 02/04/21 02/05/21 02/06/21 02/07/21 23:59 23:59 23:59 23:59 Intake Total 3380 1800 Output Total 900 1475 Balance 2480 325 Meds/Results Medications: Active Medications Generic Name Dose Route Start Last Admin Trade Name Freq PRN Reason Stop Dose Admin Hydrocodone Bitart/Acetaminophen 1 tab 02/07/21 05:00 Hydrocodone/Acetaminophen (*Crx) 5-325 Mg Tablet PO Q4H PRN Pain Rated 1-3 Hydrocodone Bitart/Acetaminophen 2 tab 02/07/21 05:00 02/07/21 05:14 Hydrocodone/Acetaminophen (*Crx) 5-325 Mg Tablet PO 2 tab Q4H PRN Administration Pain Rated 4-6 Alprazolam 0.5 mg 02/06/21 17:00 02/06/21 16:32 Alprazolam (*Crx) 0.5 Mg Tablet PO 0.5 mg BID EMMANUELLE Administration Atorvastatin Calcium 20 mg 02/06/21 21:00 02/06/21 20:22 Atorvastatin 20 Mg Tablet PO 20 mg HS EMMANUELLE Administration Buspirone HCl 10 mg 02/06/21 17:00 02/06/21 17:43 Buspirone Hcl 10 Mg Tablet PO 10 mg TID EMMANUELLE Administration Calcium Carbonate 500 mg 02/06/21 17:00 02/06/21 17:43 Calcium Carbonate (Oscal) 500 Mg Tablet PO 500 mg BID EMMANUELLE Administration Citalopram Hydrobromide 20 mg 02/07/21 09:00 Citalopram Hydrobromide 20 Mg Tablet PO QAM EMMANUELLE Hydromorphone HCl 0.5 mg 02/06/21 08:44 02/06/21 20:43 Hydromorphone Hcl Inj (*Crx) 1 Mg/Ml Syr IV PUSH 0.5 mg Q4H PRN Administration Pain Rated 7-10 Ceftriaxone Sodium/Dextrose 1 gm in 50 mls @ 100 mls/hr 02/07/21 09:00 Rocephin 1 Gm/D5w 50 Ml IVPB Q24H EMMANUELLE Dextrose/Sodium Chloride 1,000 mls @ 100 mls/hr 02/06/21 08:55 02/07/21 06:20 Dextrose 5% Sodium Chloride 0.45% IV CONT 100 mls/hr .Q10H EMMANUELLE Administration Naloxone HCl 0.1 mg 02/06/21 08:44 Naloxone Hcl 0.4 Mg/Ml Vial IV PUSH Q2M PRN Opiate Reversal Ondansetron HCl 4 mg 02/06/21 08:44 08/04/21 20:38 Ondansetron Inj 4 Mg/2 Ml Vial IV PUSH 4 mg Q6H PRN Administration Nausea And Vomiting Trazodone HCl 50 mg 02/06/21 15:54 Trazodone Hcl 50
[2021-02-07] MEDS: ALPRAZolam (*CRX) 0.5 MG TABLET PO (09:21)
[2021-02-07] MEDS: busPIRone HCL 10 MG TABLET PO (09:21)
[2021-02-07] MEDS: CALCIUM CARBONATE (OSCAL) 500 MG TABLET PO (09:22)
[2021-02-07] MEDS: CITALOPRAM HYDROBROMIDE 20 MG TABLET PO (09:22)
--- NOTE | 2021-02-07 10:43 | WPDCDIQUERY2 ---
CDI Query Clarification Request -UTI documented in urology consultation -urine culture not reflexed from [facility] -UTI not on 02/07 problem list -Pt is on Ceftriaxone IV daily Please clarify if UTI was ruled in or ruled out.
[2021-02-07 14:00] VITALS: BP 131/81; PULSE 98; RESP 16; TEMP 37; O2SAT 96
--- NOTE | 2021-02-11 17:33 | PM.DS ---
DS: Admitting Diagnosis Admitting Diagnosis Left renal calculi with perinephric hematoma DS: Discharge Diagnosis Discharge Diagnosis (1) Perinephric hematoma: Code(s): S37.019A - Minor contusion of unspecified kidney, initial encounter Status: Acute (2) Bilateral kidney stones: Code(s): N20.0 - Calculus of kidney Status: Acute DS: Summary Hospital Course Hospital Course: patient was admitted through the emergency department where he had presented following ESWL several days prior. He was complaining of abdominal / flank pain and subjective fevers. CT imaging demonstrated a small to moderate size left perinephric hematoma. He is admitted for serial H&H evaluation showed stability over time. Once tolerating a diet and ambulating he was discharged with plans to follow-up within 1. Time Spent with Patient Time attestation: Total time spent providing and/or coordinating discharge services:30min Exam Const: General: no acute distress Resp: Effort & Inspection: normal respiratory effort GI: Inspection: non-distended GI Palp: No abdominal tenderness and No Guarding due to palpation present (GI) Auscultation: normal bowel sounds Discharge Plan Discharge Attending physician on discharge: Baldev Vázquez Consulting providers: Serafin Nolan ; Debi Loza ; Papo Springer ; Neil Pino Discharging Clinician: Baldev Vázquez Patient Disposition: Home, Self-Care Activity: no shower Diet: as tolerated Discharge Instructions: No exertional physical activity (discussed with pt) x2 weeks. Patient Instructions: Antibiotic Form, Urinary Tract Infection in Men (DC) Stand Alone Forms: General Discharge Information Follow-up/Referrals: Baldev Vázquez MD [Physician] - 2 Weeks Discharge Medications: New hydrocodone-acetaminophen 5-325 mg tablet 1 - 2 tablet PO Q6H PRN (Reason: pain) Qty: 20 RF: 0 sulfamethoxazole-trimethoprim 800-160 mg tablet 1 tablet PO Q12H Qty: 6 RF: 0 Continued niacin 500 mg tablet 500 mg PO DAILY RF: 0 calcium carbonate [Calcium 500] 500 mg calcium (1,250 mg) tablet 500 mg PO BID RF: 0 alprazolam [Xanax] 0.5 mg tablet 0.5 mg PO BID RF: 0 citalopram [Celexa] 20 mg tablet 20 mg PO QAM RF: 0 buspirone 10 mg tablet 10 mg PO TID RF: 0 trazodone 50 mg tablet 50 mg PO HS PRN (Reason: Insomnia) RF: 0 atorvastatin 20 mg tablet 20 mg PO HS RF: 0 cholecalciferol (vitamin D3) 25 mcg (1,000 unit) Capsule 25 mcg PO DAILY RF: 0 hydrocodone-acetaminophen 5-325 mg tablet 1 - 2 tablet PO Q6H PRN (Reason: pain) Qty: 20 RF: 0 Held omega 1-xyo-hkn-fish oil [Fish Oil] 1,000 mg (120 mg-180 mg) capsule 1 cap PO BID RF: 0 Hold Instructions: Resume on 02/03/21. aspirin [Adult Low Dose Aspirin] 81 mg tablet,delayed release (DR/EC) 81 mg PO DAILY RF: 0 Hold Instructions: Resume on 02/03/21. Date of admission: 02/06/21 08:45 Primary Care Provider: Kalin Lopez Admitting Provider: Baldev Vázquez Attending physician on admission: Baldev Vázquez Condition: Guarded Prognosis
== END 2021-02-07 15:11 | disposition home or self-care (01) | DRG 700 ==
LOC: ANHED 06:47 → ANH3MEDSUR 08:10
PROVIDERS: Nurse Practitioner Adult Health; Admitting Provider Urology; Emergency Provider Emergency Medicine; PCP Internal Medicine; Visit Provider Urology
DX: N20.0 Calculus of kidney (principal); S37.012A Minor contusion of left kidney, initial encounter; Z98.890 Other specified postprocedural states; R50.9 Fever, unspecified; E78.2 Mixed hyperlipidemia; Z79.82 Long term (current) use of aspirin; Z79.899 Other long term (current) drug therapy
CPT/HCPCS: 36415; 71045; 74176; 80048; 80053; 81001; 83605; 85014; 85018; 85025; 87040; 96361; 96365; 96375; 99285; A9270; G0378; J0131; J0696; J1170; J2405; J7030

== ENCOUNTER 2021-02-12 13:06 | Outpatient (CLI) | payer MEDICARE, SELFPAY ==
--- NOTE | ~2021-02-12 | XR_ITS ---
EXAMINATION: XR abdomen/kub 1V INDICATION: Gross hematuria, recent lithotripsy TECHNIQUE: Supine views of the abdomen were obtained on 2 radiographs. COMPARISON: 02/01/2021 FINDINGS: A previously seen 12 mm stone projecting in the expected location of the left renal pelvis is no longer identified, consistent with interval lithotripsy. There are stable stones of the left ki dney lower pole measuring up to 6 mm. Bulging the lateral contour of the left kidney is consistent wi th perinephric hematoma identified on CT. There are stable stones of the right kidney measuring up to 6 mm. Cholecystectomy clips are noted. There is elevation of the right hemidiaphragm. Mild osteoarth ritis of the hips is noted. IMPRESSION: 1. Changes of interval lithotripsy with treatment of the previously described 12 mm stone projecting at the left renal pelvis. 2. Bilateral nephrolithiasis. Reviewed, dictated and finalized at location B. IMPRESSION: 1. Changes of interval lithotripsy with treatment of the previously described 1 2 mm stone projecting at the left renal pelvis. 2. Bilateral nephrolithiasis.
--- NOTE | ~2021-02-12 | CT_ITS ---
EXAMINATION: CT abdomen pelvis wo con DATE: 02/12/2021 13:28 INDICATION: Gross hematuria TECHNIQUE: Computed tomography (CT) of the abdomen and pelvis was performed without intravenous contr ast. Automated exposure control and iterative reconstruction technique were employed. Exam dose: 414 .98 mGy-cm total exam DLP. COMPARISON: 02/12/2021 KUB 02/06/[address] abdomen pelvis 12/31/2020 CT abdomen pelvis without and subsequently with IV contrast material FINDINGS: There is discoid atelectasis and/or scarring in the left lower lobe. Heart size is within n ormal range. No pericardial or pleural effusion. Status post cholecystectomy. No intrahepatic or extrahepatic bile duct or pancreatic duct dilatation. Approximately 4 cm right renal cyst. Bilateral nonobstructing nephrolithiasis. No ureteral calculus or hydroureteronephrosis. Again noted is a large perinephric left hematoma, with extension into the posterior perinephric space and retroperitoneum. Prostate enlargement and calcification. The urinary bladder is unremarkable. There are numerous diverticula scattered throughout the left and right colon; no CT evidence of diver ticulitis. No bowel obstruction, bowel wall thickening, pneumatosis or intraperitoneal free air. There is atherosclerotic calcification of the abdominal aorta and iliac arteries but no aneurysm. No intraperitoneal or retroperitoneal or pelvic mass lesion or adenopathy or ascites. Osteosclerotic lesions of right side of L3 vertebral body and left sacrum are stable since 02/2021. IMPRESSION: No significant change of left perinephric and retroperitoneal bleed since 02/2021 Bilateral nonobstructive nephrolithiasis 4 cm right renal cyst Status post cholecystectomy Reviewed, dictated and finalized at [facility]. Reviewed, dictated and finalized at location [facility]. IMPRESSION: No significant change of left perinephric and retroperitoneal blee d since 02/2021 Bilateral nonobstructive nephrolithiasis 4 cm right renal cyst Status post cholecystectomy
== END 2021-02-12 13:07 | disposition home or self-care (01) ==
PROVIDERS: PCP Internal Medicine; Visit Provider Urology
DX: R31.0 Gross hematuria (principal); N20.0 Calculus of kidney; N28.1 Cyst of kidney, acquired; Z90.49 Acquired absence of other specified parts of digestive tract
CPT/HCPCS: 74018; 74176

== ENCOUNTER 2021-03-19 11:27 | Outpatient (CLI) | payer MEDICARE, SELFPAY ==
--- NOTE | ~2021-03-19 | XR_ITS ---
XR abdomen/kub 1V DATE: 03/19/2021 11:46 INDICATION: Gross hematuria TECHNIQUE: AP projection, 2 views COMPARISON: 02/12/[address] abdomen FINDINGS: Stable multiple bilateral calcified renal stones since 02/12/2021. No apparent ureteral calc ified calculi. The left renal silhouette appears smaller since the 2020, which may be consistent with resolving perinephric hematoma. Status post cholecystectomy. No evidence of bowel obstruction. The psoas shadows are intact. No visceromegaly is noted otherwise. IMPRESSION: Bilateral nephrolithiasis Reviewed, dictated and finalized at [facility]. Reviewed, dictated and finalized at [facility]. IMPRESSION: Bilateral nephrolithiasis
== END 2021-03-19 11:28 | disposition home or self-care (01) ==
LOC: ANHIMG 11:33
PROVIDERS: PCP Internal Medicine; Visit Provider Urology
DX: R31.0 Gross hematuria (principal); N20.0 Calculus of kidney
CPT/HCPCS: 74018

== ENCOUNTER → 2021-04-27 02:28 | Outpatient (CLI) | payer MEDICARE, SELFPAY ==
[2021-04-27 18:07] LABS: SARS-CoV-2 RNA PCR Negative
== END ==
PROVIDERS: PCP Internal Medicine; Visit Provider Internal Medicine
DX: R68.89 Other general symptoms and signs (principal); Z20.822 Contact with and (suspected) exposure to COVID-19
CPT/HCPCS: C9803; U0003; U0005

== ENCOUNTER 2021-09-12 11:35 | Outpatient (CLI) | payer MEDICARE, SELFPAY ==
--- NOTE | ~2021-09-12 | XR_ITS ---
EXAMINATION: XR abdomen/kub 1V EXAM DATE: 09/12/2021 11:52 INDICATION: Calculus Of Kidney, Hx existing stones, no pain at this time . TECHNIQUE: Frontal projection of the upper abdomen, frontal projection lower abdomen/pelvis for inter pretation. Comparison is made to prior examination from 03/19/2021. FINDINGS: Bilateral nephrolithiasis measuring up to about 6 mm again noted, indicated. Cholecystecto my clips. Moderate amount of colonic stool. No dilated small bowel, no obstruction. Mild to moderate bony degenerative changes. IMPRESSION: Bilateral nephrolithiasis unchanged. Reviewed, dictated and finalized at location [facility]. 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
== END 2021-09-12 11:36 | disposition home or self-care (01) ==
LOC: ANHIMG 11:37
PROVIDERS: PCP Internal Medicine; Visit Provider Urology
DX: N20.0 Calculus of kidney (principal)
CPT/HCPCS: 74018

== ENCOUNTER 2022-03-19 12:21 | Outpatient (CLI) | payer MEDICARE, SELFPAY ==
--- NOTE | ~2022-03-19 | XR_ITS ---
EXAMINATION: XR abdomen/kub 1V INDICATION: Calculus of the kidneys TECHNIQUE: Supine views of the abdomen were obtained on 2 radiographs. COMPARISON: 09/12/2021 FINDINGS: There are at least six stones projecting in the right kidney, the largest of which measures 6 mm in the lower pole. There are at least six stones projecting in the left kidney, the largest whi ch measures 5 mm in the lower pole. No stones are identified along the expected courses of the ureter s or within the urinary bladder. The bowel gas pattern is normal. The visualized lung bases are clear . Bone islands are noted in the left sacrum and L3 vertebral body. IMPRESSION: 1. Stable bilateral nephrolithiasis. Reviewed, dictated and finalized at location [facility].
== END 2022-03-19 12:22 | disposition home or self-care (01) ==
PROVIDERS: PCP Internal Medicine; Visit Provider Urology
DX: N20.0 Calculus of kidney (principal)
CPT/HCPCS: 74018

== ENCOUNTER 2022-11-24 15:51 | Emergency (ER) | payer MEDICARE, SELFPAY ==
[2022-11-24 15:59] VITALS: BP 157/105; PULSE 91; RESP 18; TEMP 36.6; O2SAT 100
--- NOTE | 2022-11-24 16:02 | ED.SKABFB ---
HPI - Skin/Abscess/Foreign Bdy General Chief complaint: Skin/Abscess/Foreign Body Stated complaint: Insect Bite Time Seen by Provider: 11/24/22 15:59 Source: patient, RN notes reviewed and old records reviewed Mode of arrival: ambulatory Limitations: no limitations History of Present Illness HPI narrative: 67-year-old male presents to the [facility] with concerns over a tick bite to the left upper inner thigh. Patient states that he went fishing last Thursday and Thursday. Noticed on Thursday that he had some itching, pulled off a tick. Noticed some increased redness to the area this morning. States that he tried calling his doctor's office Related Data Home Medications Medication Instructions Recorded Confirmed alprazolam 0.5 mg tablet (Xanax) 0.5 mg PO BID 05/03/19 11/24/22 aspirin 81 mg tablet,delayed 81 mg PO DAILY 05/03/19 11/24/22 release (Adult Low Dose Aspirin) buspirone 10 mg tablet 10 mg PO TID 05/03/19 11/24/22 calcium carbonate 500 mg calcium 500 mg PO BID 05/03/19 11/24/22 (1,250 mg) tablet (Calcium 500) citalopram 20 mg tablet (Celexa) 20 mg PO QAM 05/03/19 11/24/22 niacin 500 mg tablet 500 mg PO DAILY 05/03/19 11/24/22 omega 7-tuk-svd-fish oil 1,000 mg 1 cap PO BID 05/03/19 11/24/22 (120 mg-180 mg) capsule (Fish Oil) trazodone 50 mg tablet 50 mg PO HS PRN Insomnia 11/08/20 11/24/22 cholecalciferol (vitamin D3) 25 25 mcg PO DAILY 01/23/21 11/24/22 mcg (1,000 unit) capsule Allergies Allergy/AdvReac Type Severity Reaction Status Date / Time No Known Allergies Allergy Verified 11/24/22 15:59 Review of Systems Review of Systems: All systems reviewed & are unremarkable except as noted in HPI and below Constitutional: Constitutional: Reports no additional constitutional complaints Eyes: Eyes: Reports no additional eye complaints ENT: Reports system reviewed and no additional complaints, except as documented Cardiovascular: Cardiovascular: Reports no additional cardiovascular complaints, Denies chest pain and Denies dyspnea Respiratory: Respiratory: Reports no additional respiratory complaints, Denies chest congestion, Denies cough and Denies dyspnea Gastrointestinal: Gastrointestinal: Reports no additional gastrointestinal complaints, Denies abdominal pain, Denies nausea and Denies vomiting Musculoskeletal: Musculoskeletal: Reports no additional musculoskeletal complaints Integumentary/Breasts: Skin/Breast: Reports as per HPI Neurologic: Reports system reviewed and no additional complaints, except as documented Psychiatric: Psychiatric: Reports no additional psychiatric complaints Allergic/Immunologic: Allergic/Immunologic: Reports no additional allergic/immunologic complaints PMFSH Past Medical History Medical History Acute subdural hematoma Anxiety Bilateral renal cysts Elevated PSA Hernia Impotence of organic origin Kidney stones Mixed hyperlipidemia On prison drug therapy Testicular hypofunction Viral illness Vitamin D deficiency Surgical History Surgical History History of cholecystectomy History of hernia surgery LT inguinal History of lithotripsy several times History of tonsillectomy Family History Family History Father , Car accident Family history of diabetes mellitus in first degree relative Family history of heart disease in male family member before age 55 Sibling Family history of diabetes mellitus in first degree relative Mother , Multiple myeloma Family history of heart disease in male family member before age 55 Other Diabetes mellitus Family history of cardiovascular disease Family history of malignant neoplasm Hypertension Social History Social History Smoking status: Never smoker Tobacco type: cigar
== END 2022-11-24 16:17 | disposition home or self-care (01) ==
PROVIDERS: Emergency Provider Nurse Practitioner; PCP Family Medicine
DX: S70.362A Insect bite (nonvenomous), left thigh, initial encounter (principal); W57.XXXA Bitten or stung by nonvenomous insect and other nonvenomous arthropods, initial encounter; E78.2 Mixed hyperlipidemia; E55.9 Vitamin D deficiency, unspecified; Z79.82 Long term (current) use of aspirin
CPT/HCPCS: 99213; G0463

== ENCOUNTER 2023-01-26 08:26 | Emergency (ER) | payer MEDICARE, SELFPAY ==
[2023-01-26 08:37] VITALS: BP 137/81; PULSE 117; RESP 16; TEMP 38.7; O2SAT 98
--- NOTE | 2023-01-26 09:00 | ED.URI ---
HPI - URI/Sore Throat General Chief Complaint: Upper Respiratory Infection Stated Complaint: Headache, chills Time Seen by Provider: 01/26/23 09:01 Source: patient and RN notes reviewed Mode of arrival: ambulatory Limitations: no limitations History of Present Illness HPI Narrative: 67-year-old male presented for complaint of body aches, chills, headache since yesterday. Denies nausea, vomiting, diarrhea, chest pain, palpitations, shortness of breath or wheezing. Taking Tylenol and ibuprofen without significant relief. States his was recently ill with what he thinks was a sinus infection. MD elicited complaint: cough Related Data Home Medications Medication Instructions Recorded Confirmed alprazolam 0.5 mg tablet (Xanax) 0.5 mg PO BID 05/03/19 01/26/23 aspirin 81 mg tablet,delayed 81 mg PO DAILY 05/03/19 01/26/23 release (Adult Low Dose Aspirin) buspirone 10 mg tablet 10 mg PO TID 05/03/19 01/26/23 calcium carbonate 500 mg calcium 500 mg PO BID 05/03/19 01/26/23 (1,250 mg) tablet (Calcium 500) citalopram 20 mg tablet (Celexa) 20 mg PO QAM 05/03/19 01/26/23 niacin 500 mg tablet 500 mg PO DAILY 05/03/19 01/26/23 omega 1-tze-gqw-fish oil 1,000 mg 1 cap PO BID 05/03/19 01/26/23 (120 mg-180 mg) capsule (Fish Oil) trazodone 50 mg tablet 50 mg PO HS PRN Insomnia 11/08/20 01/26/23 cholecalciferol (vitamin D3) 25 50 mcg PO DAILY 12/09/22 01/26/23 mcg (1,000 unit) capsule Allergies Allergy/AdvReac Type Severity Reaction Status Date / Time No Known Allergies Allergy Verified 01/26/23 08:32 Review of Systems Review of Systems: CONSTITUTIONAL: Endorses malaise, chills, sweats, fever EYES: Denies visual changes, redness, or discharge ENT: Reports rhinorrhea, congestion, denies sinus pain, otalgia, sore throat CARDIOVASCULAR: Denies chest pain, palpitations, edema RESPIRATORY: Reports cough, post nasal drainage. 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 Testicular hypofunction Viral illness Vitamin D deficiency Surgical History Surgical History History of cholecystectomy History of hernia surgery LT inguinal History of lithotripsy several times History of tonsillectomy Family History Family History Father , Car accident Family history of diabetes mellitus in first degree relative Family history of heart disease in male family member before age 55 Sibling Family history of diabetes mellitus in first degree relative Mother , Multiple myeloma Family history of heart disease in male family member before age 55 Other Diabetes mellitus Family history of cardiovascular disease Family history of malignant neoplasm Hypertension Social History Social History Smoking status: Never smoker Tobacco type: cigarettes Second hand tobacco smoke exposure: No Alcohol intake: current Alcohol use details: rarely Substance use: never Lack of Transportation: No Lack of Food: Never True Current Housing: I Have Housing Concerned About Future Housing: No Difficulty Paying Gas/Electric Bills: No Difficulty Paying for Meds: No Currently Unemployed: No Education: Trade/Vocational Certificate Difficulty w/ Childcare or Family Care: No Living arrangements: with family Additional living arrangements comments: Occupation/Education: retired Gender identity (if verbalized by the patient): Raymundo
== END 2023-01-26 09:20 | disposition home or self-care (01) ==
PROVIDERS: Emergency Provider Nurse Practitioner Family; PCP Family Medicine
DX: J02.0 Streptococcal pharyngitis (principal); Z20.822 Contact with and (suspected) exposure to COVID-19; E78.2 Mixed hyperlipidemia; F41.9 Anxiety disorder, unspecified; E55.9 Vitamin D deficiency, unspecified; Z79.82 Long term (current) use of aspirin
CPT/HCPCS: 87081; 87426; 87804; 87880; 99213; C9803; G0463

== ENCOUNTER 2023-03-24 15:08 | Outpatient (CLI) | payer MEDICARE, SELFPAY ==
--- NOTE | ~2023-03-24 | XR_ITS ---
EXAMINATION: XR abdomen/kub 1V INDICATION: Calculus of the kidney TECHNIQUE: Supine views of the abdomen were obtained on 2 radiographs. COMPARISON: 03/19/2022 FINDINGS: There are at least six stones of the right kidney which measure up to 6 mm and are not sign ificantly changed since the prior examination. There are approximately nine stones of the left kidney . The largest measures 7 mm in the lower pole and several demonstrate slight interval enlargement. No stones are identified along the expected courses of the ureters or within the urinary bladder. Starla cystectomy clips are noted. The bowel gas pattern is normal. IMPRESSION: 1. Bilateral nephrolithiasis with slight increase in size of several left-sided stones. 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
== END 2023-03-24 15:09 | disposition home or self-care (01) ==
PROVIDERS: PCP Family Medicine; Visit Provider Urology
DX: N20.0 Calculus of kidney (principal)
CPT/HCPCS: 74018

== ENCOUNTER 2023-04-18 08:32 | Emergency (ER) | payer MEDICARE, SELFPAY ==
[2023-04-18 08:45] VITALS: BP 119/89; PULSE 98; RESP 16; TEMP 37.2; O2SAT 100
--- NOTE | 2023-04-18 09:19 | ED.URI ---
HPI - URI/Sore Throat General Chief Complaint: Upper Respiratory Infection Stated Complaint: cough Time Seen by Provider: 04/18/23 09:07 Source: patient and RN notes reviewed Mode of arrival: ambulatory Limitations: no limitations History of Present Illness HPI Narrative: Patient presents today with a 2-3 day history of dry cough, congestion, postnasal drip. Denies any additional symptoms to include fever, sore throat, shortness of breath. No known sick contacts. He has tried Delsym without relief, but has tried some cough drops which did provide some mild relief. Related Data Home Medications Medication Instructions Recorded Confirmed alprazolam 0.5 mg tablet (Xanax) 0.5 mg PO BID 05/03/19 04/18/23 aspirin 81 mg tablet,delayed 81 mg PO DAILY 05/03/19 04/18/23 release (Adult Low Dose Aspirin) buspirone 10 mg tablet 10 mg PO TID 05/03/19 04/18/23 calcium carbonate 500 mg calcium 500 mg PO BID 05/03/19 04/18/23 (1,250 mg) tablet (Calcium 500) citalopram 20 mg tablet (Celexa) 20 mg PO QAM 05/03/19 04/18/23 niacin 500 mg tablet 500 mg PO DAILY 05/03/19 04/18/23 omega 4-nki-jvl-fish oil 1,000 mg 1 cap PO BID 05/03/19 04/18/23 (120 mg-180 mg) capsule (Fish Oil) trazodone 50 mg tablet 50 mg PO HS PRN Insomnia 11/08/20 04/18/23 cholecalciferol (vitamin D3) 25 50 mcg PO DAILY 12/09/22 04/18/23 mcg (1,000 unit) capsule Allergies Allergy/AdvReac Type Severity Reaction Status Date / Time No Known Allergies Allergy Verified 04/18/23 08:55 Review of Systems Review of Systems: CONSTITUTIONAL: Denies body aches, fever, chills, or sweats. EYES: Denies visual changes, redness, or discharge. ENT: Denies rhinorrhea, sore throat, or otalgia.+ congestion, postnasal drip CARDIOVASCULAR: Denies chest pain, palpitations, or edema. RESPIRATORY: Denies dyspnea.+ cough GASTROINTESTINAL: Denies abdominal pain, nausea, vomiting, or diarrhea. GENITOURINARY: Denies dysuria or hematuria. SKIN: Denies rash, itching, or wounds. MUSCULOSKELETAL: Denies back pain, joint pain, or myalgia. NEUROLOGIC: Denies headache, numbness, tingling, or weakness. PSYCH: Denies depression or anxiety. 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 Testicular hypofunction Viral illness Vitamin D deficiency Surgical History Surgical History History of cholecystectomy History of hernia surgery LT inguinal History of lithotripsy several times History of tonsillectomy Family History Family History Father , Car accident Family history of diabetes mellitus in first degree relative Family history of heart disease in male family member before age 55 Sibling Family history of diabetes mellitus in first degree relative Mother , Multiple myeloma Family history of heart disease in male family member before age 55 Other Diabetes mellitus Family history of cardiovascular disease Family history of malignant neoplasm Hypertension Social History Social History Smoking status: Never smoker Tobacco type: cigarettes Second hand tobacco smoke exposure: No Alcohol intake: current Alcohol use details: rarely Substance use: never Lack of Transportation: No Lack of Food: Never True Current Housing: I Have Housing Concerned About Future Housing: No Difficulty Paying Gas/Electric Bills: No Difficulty Paying for Meds: No Currently Unemployed: No Education: Trade/Vocational Certificate Difficulty w/ Childcare or Family Care: No Living arrangements: with family Additional living arrangements comme
== END 2023-04-18 09:26 | disposition home or self-care (01) ==
PROVIDERS: Emergency Provider Nurse Practitioner; PCP Family Medicine
DX: J06.9 Acute upper respiratory infection, unspecified (principal); E55.9 Vitamin D deficiency, unspecified; F41.9 Anxiety disorder, unspecified; Z79.82 Long term (current) use of aspirin
CPT/HCPCS: 99211; G0463

== ENCOUNTER 2023-05-16 16:24 | Emergency (ER) | payer MEDICARE, SELFPAY ==
[2023-05-16 16:33] VITALS: BP 149/98; PULSE 105; RESP 16; TEMP 37.2; O2SAT 98
--- NOTE | 2023-05-16 17:02 | ED.MALEGU ---
HPI - Male Genitourinary General Chief complaint: Urogenital-Male Stated complaint: Male Problems Time Seen by Provider: 05/16/23 16:44 Source: patient and RN notes reviewed Mode of arrival: ambulatory Limitations: no limitations History of Present Illness HPI Narrative: Patient presents today complaining of a 4 to five-day history of irritation at the tip of his penis with occasional dysuria and frequency. Denies abdominal pain, back pain, hematuria. History of bilateral kidney stones that have been stable since last year per his radiologist. Related Data Home Medications Medication Instructions Recorded Confirmed alprazolam 0.5 mg tablet (Xanax) 0.5 mg PO BID 05/03/19 05/16/23 aspirin 81 mg tablet,delayed 81 mg PO DAILY 05/03/19 05/16/23 release (Adult Low Dose Aspirin) buspirone 10 mg tablet 10 mg PO TID 05/03/19 05/16/23 calcium carbonate 500 mg calcium 500 mg PO BID 05/03/19 05/16/23 (1,250 mg) tablet (Calcium 500) citalopram 20 mg tablet (Celexa) 20 mg PO QAM 05/03/19 05/16/23 niacin 500 mg tablet 500 mg PO DAILY 05/03/19 05/16/23 omega 0-qcu-rji-fish oil 1,000 mg 1 cap PO BID 05/03/19 05/16/23 (120 mg-180 mg) capsule (Fish Oil) trazodone 50 mg tablet 50 mg PO HS PRN Insomnia 11/08/20 05/16/23 cholecalciferol (vitamin D3) 25 50 mcg PO DAILY 12/09/22 05/16/23 mcg (1,000 unit) capsule Allergies Allergy/AdvReac Type Severity Reaction Status Date / Time No Known Allergies Allergy Verified 05/16/23 16:27 Review of Systems Review of Systems: CONSTITUTIONAL: Denies body aches, fever, chills, or sweats. EYES: Denies visual changes, redness, or discharge. ENT: Denies rhinorrhea, congestion, sore throat, or otalgia. CARDIOVASCULAR: Denies chest pain, palpitations, or edema. RESPIRATORY: Denies cough or dyspnea. GASTROINTESTINAL: Denies abdominal pain, nausea, vomiting, or diarrhea. GENITOURINARY: + dysuria, frequency, urethral irritation. SKIN: Denies rash, itching, or wounds. MUSCULOSKELETAL: Denies back pain, joint pain, or myalgia. NEUROLOGIC: Denies headache, numbness, tingling, or weakness. PSYCH: Denies depression or anxiety. [facility] Past Medical History Medical History Acute subdural hematoma Anxiety Bilateral renal cysts Elevated PSA Hernia Impotence of organic origin Kidney stones Mixed hyperlipidemia On [facility] drug therapy Testicular hypofunction Viral illness Vitamin D deficiency Surgical History Surgical History History of cholecystectomy History of hernia surgery LT inguinal History of lithotripsy several times History of tonsillectomy Family History Family History Father , Car accident Family history of diabetes mellitus in first degree relative Family history of heart disease in male family member before age 55 Sibling Family history of diabetes mellitus in first degree relative Mother , Multiple myeloma Family history of heart disease in male family member before age 55 Other Diabetes mellitus Family history of cardiovascular disease Family history of malignant neoplasm Hypertension Social History Social History Smoking status: Never smoker Tobacco type: cigarettes Second hand tobacco smoke exposure: No Alcohol intake: current Alcohol use details: rarely Substance use: never Lack of Transportation: No Lack of Food: Never True Current Housing: I Have Housing Concerned About Future Housing: No Difficulty Paying Gas/Electric Bills: No Difficulty Paying for Meds: No Currently Unemployed: No Education: Trade/Vocational Certificate Difficulty w/ Childcare or Family Care: No Living arrangements: with family Additional living arrangements comments: Occupation/
== END 2023-05-16 17:08 | disposition home or self-care (01) ==
PROVIDERS: Emergency Provider Nurse Practitioner; PCP Family Medicine
DX: N30.01 Acute cystitis with hematuria (principal); E78.2 Mixed hyperlipidemia; Z79.899 Other long term (current) drug therapy; Z79.891 Long term (current) use of opiate analgesic; Z79.82 Long term (current) use of aspirin
CPT/HCPCS: 81003; 99213; G0463

== ENCOUNTER 2023-09-01 14:20 | Outpatient (CLI) | payer MEDICARE, SELFPAY ==
--- NOTE | ~2023-09-01 | XR_ITS ---
EXAMINATION: XR abdomen/kub 1V INDICATION: Calculus of the kidney TECHNIQUE: Supine views of the abdomen were obtained on 2 radiographs. COMPARISON: 03/24/2023 FINDINGS: There are at least three stable nonobstructing stones of the right kidney which measure up to 5 mm. There are multiple stable nonobstructing stones of the left kidney which measure up to 8 mm in the lower pole. No stones are identified along the expected courses of the ureters. The bowel gas pattern is normal. Cholecystectomy clips are noted. IMPRESSION: 1. Stable bilateral nephrolithiasis. 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
== END 2023-09-01 14:21 | disposition home or self-care (01) ==
LOC: ANHIMG 14:26
PROVIDERS: PCP Family Medicine; Visit Provider Urology
DX: N20.0 Calculus of kidney (principal)
CPT/HCPCS: 74018

== ENCOUNTER 2023-12-28 12:46 | Outpatient (CLI) | payer MEDICARE, SELFPAY ==
--- NOTE | 2023-12-28 12:54 | ECG_ITS ---
Test Date: 2023-12-28 13:13:21 Measurements Intervals [place] Rate: 100 P: 61 [place]: 155 QRS: 32 QRSD: 90 T: 57 QT: 321 QTc: 415 Interpretive Statements SINUS TACHYCARDIA ABNORMAL RHYTHM ECG No previous ECG available for comparison Electronically Signed On 12-28-2023 16:01:20 CDT by Cirilo Erickson M.D.
[2023-12-28 13:35] LABS: Partial Thromboplastin Time 28.7 Seconds (22.3-36.8); Prothrombin Time 13.3 Seconds (11.1-14.7)
== END 2023-12-28 12:47 | disposition home or self-care (01) ==
PROVIDERS: PCP Nurse Practitioner; Visit Provider Urology
DX: E78.00 Pure hypercholesterolemia, unspecified (principal); N20.0 Calculus of kidney; Z01.818 Encounter for other preprocedural examination
CPT/HCPCS: 36415; 85610; 85730; 87086; 93005

== ENCOUNTER 2024-01-01 00:42 | Day surgery (SDC) | payer MEDICARE, SELFPAY ==
[2023-12-24 09:21] VITALS: BMI 24.3
--- NOTE | 2023-12-24 09:31 | PC.NURSE ---
PRE-OP INSTRUCTIONS PLEASE READ CAREFULLY Report to the Outpatient Waiting Room, entrance under the green pavilion located off [facility], at time _0930_ on date _01/01/24_. Planned Procedure Time: _1130_. Time changes happen often and if your time is changed the preop area will call you the afternoon before. - You and your visitor will be asked to self-screen and do not enter if you have any COVID symptoms. - A mask is optional within the hospital at this time. Patients may have clear liquids (water, carbonated beverages, clear teas, apple juice) until 3 hours prior to surgery (0830 AM) with a maximum of 20 ounces. - No food from midnight until time of surgery Take the following medications with a SIP of water the morning of surgery: _ALPRAZOLAM, BUSPIRONE, CITALOPRAM_ DO NOT STOP ANY OF YOUR OTHER PRESCRIPTION MEDICATIONS PRIOR TO SURGERY ?EXCEPT THE FOLLOWING Medications to discontinue per DR. LAKHANI - _ASPIRIN 7 DAYS PRIOR (PER PATIENT), Date to take last dose 12/24/23_ Medications to discontinue per ANESTHESIA - _VITAMINS/SUPPLEMENTS 3 DAYS PRIOR TO SURGERY, Date to take last dose 12/28/23_ Please no make-up, nail yoruba, hairspray, perfume, deodorant, or body powder the day of surgery. No jewelry (including any body piercings) or valuables the day of surgery, leave them at home. Please take a shower or bath the night before, or the morning of, surgery with an antibacterial soap. Wear comfortable, loose fitting clothing. - Jewelry must be removed prior to entering the operating room. Rings and piercings that are not removed may be cut off. - The hospital will not accept responsibility for valuables. - Please leave all valuables, including medications, at home the day of surgery. If you are going home after surgery, a licensed pile driver operator barge mounted must drive you home. - NO public transportation without another adult if you receive anesthesia. - We recommend that an adult stay with you for 24 hours following discharge. - We also recommend that you do not drive, make important decision, drink alcoholic beverages, or take any drugs that were not prescribed by your health care provider for at least 24 hours after your discharge time. Follow any additional instructions given to you from your surgeon. If you or anyone in your household have experienced Covid symptoms in the past week, please notify your surgeon or the nurse liaison at the phone number below for possible testing. Telephone instructions given to _PATIENT_and asked if any additional questions and then verbalized understanding. Patient advised to call surgeon office or pre surgery nurse liaison [phone] if any additional questions.
--- NOTE | 2023-12-29 17:48 | PM.HPGS ---
History of Present Illness History of Present Illness Consent: Risks, benefits, and alternatives have been discussed and questions answered. Patient agrees to proceed with procedure. Chief complaint: Left Renal Stone Narrative: Kvng Pino is a 68 year old male who has had ESWL on 1 occasion in the past. For several months he is known to have bilateral stones with a greater burden on the left. He would several stones in the left kidney up to 8 mm. He is now decided to proceed with left ESWL after discussion of additional options. 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 Testicular hypofunction Viral illness Vitamin D deficiency Surgical History Surgical History History of cholecystectomy History of hernia surgery LT inguinal History of lithotripsy several times History of tonsillectomy Family History Family History Father , Car accident Family history of diabetes mellitus in first degree relative Family history of heart disease in male family member before age 55 Sibling Family history of diabetes mellitus in first degree relative Mother , Multiple myeloma Family history of heart disease in male family member before age 55 Other Diabetes mellitus Family history of cardiovascular disease Family history of malignant neoplasm Hypertension Social History Social History Smoking status: Never smoker Tobacco type: cigarettes Second hand tobacco smoke exposure: No Alcohol intake: current Alcohol use details: VERY RARE - STATES MAYBE COUPLE TIMES A YEAR Substance use: never Substance use type: does not use Lack of Transportation: No Lack of Food: Never True Current Housing: I Have Housing Concerned About Future Housing: No Difficulty Paying Gas/Electric Bills: No Difficulty Paying for Meds: No Currently Unemployed: No Education: Trade/Vocational Certificate Difficulty w/ Childcare or Family Care: No Living arrangements: with family Additional living arrangements comments: Occupation/Education: retired Gender identity (if verbalized by the patient): Male Sexual Orientation (if Verbalized by the Patient): Straight or Heterosexual Spiritual care concerns: No Meds Home Medications and Allergies Home Medications Medication Instructions Recorded Confirmed Type alprazolam 0.5 mg tablet (Xanax) 0.5 mg PO BID 05/03/19 12/24/23 History aspirin 81 mg tablet,delayed 81 mg PO DAILY 05/03/19 12/24/23 History release (Adult Low Dose Aspirin) buspirone 10 mg tablet 10 mg PO TID 05/03/19 12/24/23 History calcium carbonate (Calcium 500) 500 mg PO BID 05/03/19 12/24/23 History citalopram 20 mg tablet (Celexa) 20 mg PO QAM 05/03/19 12/24/23 History niacin 500 mg tablet 500 mg PO DAILY 05/03/19 12/24/23 History omega 0-eno-osj-fish oil 1,000 mg 1 cap PO BID 05/03/19 12/24/23 History (120 mg-180 mg) capsule (Fish Oil) trazodone 50 mg tablet 50 mg PO HS PRN Insomnia 11/08/20 12/24/23 History cholecalciferol (vitamin D3) 25 50 mcg PO DAILY 12/09/22 12/24/23 History mcg (1,000 unit) capsule atorvastatin 20 mg tablet 20 mg PO HS #90 tabs 12/15/23 12/24/23 Rx Allergies Allergy/AdvReac Type Severity Reaction Status Date / Time No Known Allergies Allergy Verified 12/24/23 09:19 Exam Const: General: no acu
[2024-01-01] VITALS (8 sets, daily range): BP systolic 126–148; BP diastolic 86–100; PULSE 67–87; RESP 14–16; TEMP 36.3–36.6; O2SAT 97–99
--- NOTE | ~2024-01-01 | XR_ITS ---
EXAMINATION: XR abdomen/kub 1V DATE: 01/01/2024 09:04 INDICATION: Kidney stones. TECHNIQUE: A supine view of the abdomen on 2 radiographs was obtained. COMPARISON: Abdomen radiographs 09/01/2023, CT abdomen and pelvis 02/12/2021 FINDINGS: There are multiple stones in each kidney measuring up to 6 mm on the right and 8 mm on the left. There are no dilated loops of bowel. Surgical clips in the right upper quadrant are likely from cholecystectomy. IMPRESSION: 1. Bilateral kidney stones. Reviewed, dictated and finalized at location A. IMPRESSION: 1. Bilateral kidney stones.
--- NOTE | 2024-01-01 06:16 | WPDHPUPDATE1 ---
History and Physical Update Update Date/Time: 01/01/24 06:16 History and Physical has been reviewed, including an updated exam of the patient. There are NO changes in the patient's condition. Risks, benefits, and alternatives have been discussed and questions answered. Patient agrees to proceed with procedure.
[2024-01-01] MEDS: LACTATED RINGERS 1,000 ML 30 ML IV CONT ×2 (09:55→11:43)
--- NOTE | 2024-01-01 10:48 | WPDANESEPPF ---
Anes - Initial Pre Proc Eval Procedure: Operation Date: 01/01/24 11:00 Proposed Procedures p Left Extracorporeal Shock Wave Lithotripsy - Baldev Vázquez MD Date/Time: 01/01/24 10:48 Surgeon: Baldev Vázquez MD Pre Op Diagnosis: Left Renal Stone Patient Data Age: 68 Gender: M Height: 1.68 m Weight: 67.5 kg Last Vital Signs Temp 36.6 C 01/01/24 09:15 Pulse 87 01/01/24 09:15 Resp 16 01/01/24 09:15 BP 128/86 01/01/24 09:15 Pulse Ox 97 01/01/24 09:15 O2 Del Method Room Air 01/01/24 09:15 Allergies Allergy/AdvReac Type Severity Reaction Status Date / Time No Known Allergies Allergy Verified 01/01/24 09:41 Home Medications Medication Instructions Recorded Confirmed Type alprazolam 0.5 mg tablet (Xanax) 0.5 mg PO BID 05/03/19 12/24/23 History aspirin 81 mg tablet,delayed 81 mg PO DAILY 05/03/19 12/24/23 History release (Adult Low Dose Aspirin) buspirone 10 mg tablet 10 mg PO TID 05/03/19 12/24/23 History calcium carbonate (Calcium 500) 500 mg PO BID 05/03/19 12/24/23 History citalopram 20 mg tablet (Celexa) 20 mg PO QAM 05/03/19 12/24/23 History niacin 500 mg tablet 500 mg PO DAILY 05/03/19 12/24/23 History omega 7-hiq-exa-fish oil 1,000 mg 1 cap PO BID 05/03/19 12/24/23 History (120 mg-180 mg) capsule (Fish Oil) trazodone 50 mg tablet 50 mg PO HS PRN Insomnia 11/08/20 12/24/23 History cholecalciferol (vitamin D3) 25 50 mcg PO DAILY 12/09/22 12/24/23 History mcg (1,000 unit) capsule atorvastatin 20 mg tablet 20 mg PO HS #90 tabs 12/15/23 12/24/23 Rx Patient hx anesthesia problems: none Family hx anesthesia problems: none Results Review: All pre-operative results and documents have been reviewed as part of the pre-operative evaluation. 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 Testicular hypofunction Viral illness Vitamin D deficiency Surgical History Surgical History History of cholecystectomy History of hernia surgery LT inguinal History of lithotripsy several times History of tonsillectomy Family History Family History Father , Car accident Family history of diabetes mellitus in first degree relative Family history of heart disease in male family member before age 55 Sibling Family history of diabetes mellitus in first degree relative Mother , Multiple myeloma Family history of heart disease in male family member before age 55 Other Diabetes mellitus Family history of cardiovascular disease Family history of malignant neoplasm Hypertension Social History Social History Smoking status: Never smoker Tobacco type: cigarettes Second hand tobacco smoke exposure: No Alcohol intake: current Alcohol use details: VERY RARE - STATES MAYBE COUPLE TIMES A YEAR Substance use: never Substance use type: does not use Lack of Transportation: No Lack of Food: Never True Current Housing: I Have Housing Concerned About Future Housing: No Difficulty Paying Gas/Electric Bills: No Difficulty Paying for Meds: No Currently Unemployed: No Education: Trade/Vocational Certificate Difficulty w/ Childcare or Family Care: No Living arrangements: with family Additional living arrangements comments: Occupation/Education: retired Gender identity (if verbalized by the patient): Male Sexual Orientation (if Verbalized by the Patient): Straight or Heterosexual Spiritual care concerns: No Anes - Eval Final PreProcedure Day of Procedure 01/01/24 10:48 Patient weight: normal Heart: regular rate and
[2024-01-01] MEDS: ceFAZolin 2 GM/D5W 50 ML 2 GM/50 ML BAG IVPB (10:51)
--- NOTE | 2024-01-01 11:10 | W.PM.PROC2 ---
Procedure Note - Detailed Date of Procedure 01/01/24 Pre-op Diagnosis Left Renal Stones Post-op Diagnosis Same Procedure Performed Left ESWL Surgeon Baldev Vázquez MD Anesthesia General Description of Procedure The patient was brought to the operative suite where he was placed in the supine position on the Dornier lithotripsy table. he has several stones in his left kidney. Started delivering shock waves with couple small stones in the upper pole to some stones in the left lower pole. A total of 2500 shocks were delivered at a power setting of 4. There appeared to be good fragmentation of the stone. The patient tolerated the procedure well and was taken to the recovery room in good condition. Drains No Packing No Pathology None sent Condition Stable Disposition PACU
[2024-01-01] MEDS: oxyCODONE HCL (*CRX) 5 MG TAB IR PO (12:51)
== END 2024-01-01 13:25 | disposition home or self-care (01) ==
PROVIDERS: PCP Nurse Practitioner; Visit Provider Urology
PROC: (CPT 50590; principal; 2024-01-01 11:00)
DX: N20.0 Calculus of kidney (principal); F41.9 Anxiety disorder, unspecified; E78.2 Mixed hyperlipidemia; E55.9 Vitamin D deficiency, unspecified
CPT/HCPCS: 50590; 74018; A9270; J0690; J1100; J2250; J2405; J2704; J3010; J7120

== ENCOUNTER 2024-01-12 07:52 | Outpatient (CLI) | payer MEDICARE, SELFPAY ==
--- NOTE | ~2024-01-12 | XR_ITS ---
XR abdomen/kub 1V Ordering provider: Baldev Vázquez MD History: . 10 DAYS POST LEFT LITHROTRIPSY . Comparison: January 01, 2024 FINDINGS: BOWEL: Nonobstructive bowel gas pattern. ORGANOMEGALY: None. SIGNIFICANT PATHOLOGIC CALCIFICATIONS: Bilateral kidney stones. Left lower ureteric stone is noted. OTHER: No free air is seen under the diaphragm. IMPRESSION: NO ACUTE ABDOMINAL FINDINGS. Left lower ureteric stone. Bilateral kidney stones. Reviewed, dictated and finalized at location A.
== END 2024-01-12 07:53 | disposition home or self-care (01) ==
PROVIDERS: PCP Nurse Practitioner; Visit Provider Urology
DX: N20.2 Calculus of kidney with calculus of ureter (principal)
CPT/HCPCS: 74018

== ENCOUNTER 2024-04-23 10:29 | Outpatient (CLI) | payer MEDICARE, SELFPAY ==
--- NOTE | ~2024-04-23 | XR_ITS ---
XR abdomen/kub 1V 04/23/2024 10:42 Indication: Renal stones Procedure: KUB Comparison: 01/12/2024 Findings: There are stable bilateral renal stones. There is a centrally located calcification in the pelvis likely a bladder stone. There is a sclerotic lesion of the sacrum, possibly bone island. There are cholecystectomy clips. Bowel gas pattern nonobstructive. Moderate colonic fecal loading. Impression: 1: Bilateral nephrolithiasis. Possible bladder stone. Reviewed, dictated and finalized at location B. Impression: 1: Bilateral nephrolithiasis. Possible bladder stone.
== END 2024-04-23 10:30 | disposition home or self-care (01) ==
PROVIDERS: PCP Nurse Practitioner; Visit Provider Urology
DX: R97.20 Elevated prostate specific antigen [PSA] (principal)
CPT/HCPCS: 74018

== ENCOUNTER 2024-04-28 10:09 | Outpatient (CLI) | payer MEDICARE, SELFPAY ==
[2024-04-28 10:50] LABS: Anion Gap 8 mmol/L (4-12); Blood Urea Nitrogen 27 mg/dL (9-20); Calcium 9.2 mg/dL (8.4-10.2); Carbon Dioxide 30 mmol/L (22-30); Chloride 102 mmol/L (98-107); Estimated Glomerular Filt Rate 50; Glucose 90 mg/dL (65-110); Potassium 4.4 mmol/L (3.4-5.0); Sodium 140 mmol/L (137-145)
[2024-04-28 11:06] LABS: Prothrombin Time 13.5 Seconds (11.1-14.7)
[2024-04-28 11:07] LABS: Partial Thromboplastin Time 28.2 Seconds (22.3-36.8)
== END 2024-04-28 10:10 | disposition home or self-care (01) ==
PROVIDERS: Anesthesiology; PCP Nurse Practitioner; Visit Provider Urology
DX: Z01.812 Encounter for preprocedural laboratory examination (principal); N20.0 Calculus of kidney; N18.30 Chronic kidney disease, stage 3 unspecified
CPT/HCPCS: 36415; 80048; 85610; 85730; 87086

== ENCOUNTER 2024-05-06 03:02 | Day surgery (SDC) | payer MEDICARE, SELFPAY ==
--- NOTE | 2024-04-22 11:42 | P.HP_ITS ---
History of Present Illness History of Present Illness Consent: Risks, benefits, and alternatives have been discussed and questions answered. Patient agrees to proceed with procedure. Chief complaint: Right Kidney Stone Narrative: Kvng Pino is a 68 year old male with a long history of recurrent urolithiasis requiring multiple procedures the past. One memorable ESWL in February 2021 led to a small left perinephric hematoma. Most recently he has had ESWL in January 2024 to the left kidney. He now presents for ESWL to several stones in his right kidney measuring up to 5 mm. He is aware the risk including, not limited to, recurrent stones, need for additional procedures, hematuria and perinephric hematoma. 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 Testicular hypofunction Viral illness Vitamin D deficiency Surgical History Surgical History History of cholecystectomy History of hernia surgery LT inguinal History of lithotripsy several times History of tonsillectomy Family History Family History Father , Car accident Family history of diabetes mellitus in first degree relative Family history of heart disease in male family member before age 55 Sibling Family history of diabetes mellitus in first degree relative Mother , Multiple myeloma Family history of heart disease in male family member before age 55 Other Diabetes mellitus Family history of cardiovascular disease Family history of malignant neoplasm Hypertension Social History Social History Smoking status: Never smoker Tobacco type: cigarettes Second hand tobacco smoke exposure: No Alcohol intake: current Alcohol use details: VERY RARE - STATES MAYBE COUPLE TIMES A YEAR Substance use: never Substance use type: does not use Lack of Transportation: No Lack of Food: Never True Current Housing: I Have Housing Concerned About Future Housing: No Difficulty Paying Gas/Electric Bills: No Difficulty Paying for Meds: No Currently Unemployed: No Education: Trade/Vocational Certificate Difficulty w/ Childcare or Family Care: No Living arrangements: with family Additional living arrangements comments: Occupation/Education: retired Gender identity (if verbalized by the patient): Male Sexual Orientation (if Verbalized by the Patient): Straight or Heterosexual Spiritual care concerns: No Meds Home Medications and Allergies Home Medications Medication Instructions Recorded Confirmed Type alprazolam 0.5 mg tablet (Xanax) 0.5 mg PO BID 05/03/19 12/24/23 History aspirin 81 mg tablet,delayed 81 mg PO DAILY 05/03/19 12/24/23 History release (Adult Low Dose Aspirin) buspirone 10 mg tablet 10 mg PO TID 05/03/19 12/24/23 History calcium carbonate (Calcium 500) 500 mg PO BID 05/03/19 12/24/23 History citalopram 20 mg tablet (Celexa) 20 mg PO QAM 05/03/19 12/24/23 History niacin 500 mg tablet 500 mg PO DAILY 05/03/19 12/24/23 History omega 5-ruw-apz-fish oil 1,000 mg 1 cap PO BID 05/03/19 12/24/23 History (120 mg-180 mg) capsule (Fish Oil) trazodone 50 mg tablet 50 mg PO HS PRN Insomnia 11/08/20 12/24/23 History cholecalciferol (vitamin D3) 25 50 mcg PO DAILY 12/09/22 12/24/23 History mcg (1,000 unit) capsule atorvastatin 20 mg tablet 20 mg PO HS #90 tabs 12/15/23 12/24/23 Rx hydrocodone 5 mg-acetaminophen 325 1 - 2 tablet PO Q6H PRN pain #20 01/01/24 Rx mg tablet tabs Allergies Allergy/AdvReac Type Severity Reaction Status Date / Time No Known Allergies Allergy Verified 01/01/24 09:41 Exam Const: General: no acute distress Resp: Effort & Inspection: normal respiratory effort GI: Inspection: non-distended GI Palp: No abdominal tenderness and No Guarding due to palpation present (GI) Auscultation: normal bowel sounds Assessment and Plan Assessment and plan (1) Kidney stones: Code(s): N20.0 - Calculus of kidney Status: Acute Assessment and Plan: * Right ESWL
[2024-04-25 08:32] VITALS: BMI 23.1
--- NOTE | 2024-04-25 08:59 | PC.NURSE ---
Report to the Outpatient Waiting Room, entrance under the green pavilion located off [facility], at time __06:00am__ on date 05/06/24 . Planned Procedure Time: __07:30am .? Time changes happen often and if your time is changed the preop area will call you the afternoon before. - You and your visitor will be asked to self-screen and do not enter if you have any COVID symptoms. Please call surgeon if you need to reschedule. - A mask is optional within the hospital at this time. Patients may have clear liquids (water, carbonated beverages, clear teas, apple juice) until 3 hours prior to surgery with a maximum of 20 ounces. - No food from midnight until time of surgery and no smoking Take only the following medications with a SIP of water on the morning of surgery: __Buspirone, Citalopram, Hydroxyzine and Alprazolam as needed DO NOT STOP ANY OF YOUR OTHER PRESCRIPTION MEDICATIONS PRIOR TO SURGERY EXCEPT THE FOLLOWING Medications to discontinue per physician Hold all Aspirin and Vitamins/Supplements a week before per Dr Vázquez. (pt stated) Date to take last dose____04/28/24 Please no make-up, nail turkmen, hairspray, perfume, deodorant, or body powder the day of surgery.? No jewelry (including any body piercings) or valuables the day of surgery, leave them at home.? Please take a shower or bath the night before, or the morning of, surgery with an antibacterial soap.? Wear comfortable, loose fitting clothing. - Jewelry must be removed prior to entering the operating room.? Rings and piercings that are not removed may be cut off. - The hospital will not accept responsibility for valuables.? - Please leave all valuables, including medications, at home the day of surgery. If you are going home after surgery, a licensed hyster driver must drive you home.? - NO public transportation without another adult if you receive anesthesia. - We recommend that an adult stay with you for 24 hours following discharge. - We also recommend that you do not drive, make important decision, drink alcoholic beverages, or take any drugs that were not prescribed by your health care provider for at least 24 hours after your discharge time. Follow any additional instructions given to you from your surgeon. Telephone instructions given to __patient and asked if any additional questions and then verbalized understanding. Patient advised to call surgeon office or pre surgery nurse liaison [phone] if any additional questions.
[2024-05-06] VITALS (8 sets, daily range): BP systolic 121–148; BP diastolic 81–95; PULSE 65–79; RESP 12–18; TEMP 36.1; O2SAT 96–99; BMI 24.5
--- NOTE | ~2024-05-06 | XR_ITS ---
Supine and upright views of the abdomen Clinical history: Lithotripsy COMPARISON: 04/23/2024 Findings: Bowel gas pattern is nonspecific. No evidence for obstruction or free air. Multiple bilater al renal stones are again present, more numerous and larger in the right kidney as compared to the le ft. Questionable bladder stone again noted. Osseous structures are intact. Impression: Stable bilateral nephrolithiasis, right worse than left. Stable questionable bladder stone. Reviewed, dictated and finalized at location . Impression: Stable bilateral nephrolithiasis, right worse than left. Stable questionable bladder stone.
--- NOTE | 2024-05-06 06:31 | WPDHPUPDATE1 ---
History and Physical Update Update Date/Time: 05/06/24 06:31 History and Physical has been reviewed, including an updated exam of the patient. There are NO changes in the patient's condition. Risks, benefits, and alternatives have been discussed and questions answered. Patient agrees to proceed with procedure.
[2024-05-06] MEDS: LACTATED RINGERS 1,000 ML 30 ML IV CONT (06:35)
--- NOTE | 2024-05-06 06:48 | P.PNAN_ITS ---
Anes - Initial Pre Proc Eval Procedure: Operation Date: 05/06/24 07:30 Proposed Procedures p Right Extracorporeal Shock Wave Lithotripsy - Baldev Vázquez MD Date/Time: 05/06/24 06:48 Surgeon: Baldev Vázquez MD Pre Op Diagnosis: Right Kidney Stone Patient Data Age: 68 Gender: M Height: 1.68 m Weight: 69.05 kg Last Vital Signs Temp 36.1 C L 05/06/24 06:13 Pulse 73 05/06/24 06:13 Resp 16 05/06/24 06:13 BP 136/81 05/06/24 06:13 Pulse Ox 99 05/06/24 06:13 O2 Del Method Room Air 05/06/24 06:13 Allergies Allergy/AdvReac Type Severity Reaction Status Date / Time erythromycin base Allergy Mild Unknown Verified 05/06/24 06:27 Home Medications Medication Instructions Recorded Confirmed Type alprazolam 0.5 mg tablet (Xanax) 0.5 mg PO TID 05/03/19 04/25/24 History aspirin 81 mg tablet,delayed 81 mg PO DAILY 05/03/19 04/25/24 History release (Adult Low Dose Aspirin) buspirone 10 mg tablet 10 mg PO TID 05/03/19 04/25/24 History calcium carbonate (Calcium 500) 500 mg PO BID 05/03/19 04/25/24 History citalopram 20 mg tablet (Celexa) 20 mg PO QAM 05/03/19 04/25/24 History niacin 500 mg tablet 500 mg PO DAILY 05/03/19 04/25/24 History omega 1-xmp-fny-fish oil 1,000 mg 1 cap PO BID 05/03/19 04/25/24 History (120 mg-180 mg) capsule (Fish Oil) trazodone 50 mg tablet 50 mg PO HS PRN Insomnia 11/08/20 04/25/24 History cholecalciferol (vitamin D3) 25 50 mcg PO BID 12/09/22 04/25/24 History mcg (1,000 unit) capsule atorvastatin 20 mg tablet 20 mg PO HS #90 tabs 12/15/23 04/25/24 Rx hydrocodone 5 mg-acetaminophen 325 1 - 2 tablet PO Q6H PRN pain #20 01/01/24 04/25/24 Rx mg tablet tabs hydroxyzine HCl 25 mg tablet 25 mg PO TID 04/25/24 04/25/24 History potassium citrate 10 mEq (1,080 10 meq PO BID 04/25/24 04/25/24 History mg) tablet,extended release Patient hx anesthesia problems: none Family hx anesthesia problems: none Results Review: All pre-operative results and documents have been reviewed as part of the pre- operative evaluation. 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 Testicular hypofunction Viral illness Vitamin D deficiency Surgical History Surgical History History of cholecystectomy History of hernia surgery LT inguinal History of lithotripsy several times History of tonsillectomy Family History Family History Father , Car accident Family history of diabetes mellitus in first degree relative Family history of heart disease in male family member before age 55 Sibling Family history of diabetes mellitus in first degree relative Mother , Multiple myeloma Family history of heart disease in male family member before age 55 Other Diabetes mellitus Family history of cardiovascular disease Family history of malignant neoplasm Hypertension Social History Social History Smoking status: Never smoker Tobacco type: cigarettes Second hand tobacco smoke exposure: No Alcohol intake: never Alcohol use details: VERY RARE - STATES MAYBE COUPLE TIMES A YEAR Substance use: never Substance use type: does not use Lack of Transportation: No Lack of Food: Never True Current Housing: I Have Housing Concerned About Future Housing: No Difficulty Paying Gas/Electric Bills: No Difficulty Paying for Meds: No Currently Unemployed: No Education: Trade/Vocational Certificate Difficulty w/ Childcare or Family Care: No Living arrangements: with family Additional living arrangements comments: Occupation/Education: retired Gender identity (if verbalized by the patient): Male Sexual Orientation (if Verbalized by the Patient): Straight or Heterosexual Spiritual care concerns: No Anes - Eval Final PreProcedure Day of Procedure 05/06/24 06:48 Patient weight: normal Heart: regular rate and rhythm Lungs: clear to auscultation Airway: Mallampati scale class II Neurological: alert and oriented Last oral intake: >/= 8 hours ASA classification: II Emergent: no Anesthetic plan: proceed Anesthesia type and monitoring: general LMA and standard monitoring Results Review: All pre-operative results and documents have been reviewed as part of the pre- operative evaluation. Informed Consent: The patient's anesthetic plan and its attendant risks and benefits were discussed with the patient/family/POA. Questions were solicited and answers provided to the satisfaction of the patient/family/POA.
[2024-05-06] MEDS: ceFAZolin 2 GM/D5W 50 ML 2 GM/50 ML BAG IVPB (07:28)
--- NOTE | 2024-05-06 07:45 | W.PM.PROC2 ---
Procedure Note - Detailed Date of Procedure 05/06/24 Pre-op Diagnosis Right Kidney Stone Post-op Diagnosis Same Procedure Performed Right ESWL Surgeon Baldev Vázquez MD Anesthesia General Description of Procedure The patient was brought to the operative suite where he was placed in the supine position on the Dornier lithotripsy table. The focal point of the lithotripter was placed at a collection of stones in right lower pole. A total of 2500 shocks were delivered at a power setting of 4. There appeared to be good fragmentation of the stone. The patient tolerated the procedure well and was taken to the recovery room in good condition. Drains No Packing No Pathology None sent Complications No immediate complications
[2024-05-06] MEDS: oxyCODONE HCL (*CRX) 5 MG TAB IR PO (09:16)
== END 2024-05-06 09:55 | disposition home or self-care (01) ==
PROVIDERS: PCP Nurse Practitioner; Visit Provider Urology
PROC: (CPT 50590; principal; 2024-05-06 07:30)
DX: N20.0 Calculus of kidney (principal); E78.2 Mixed hyperlipidemia; E55.9 Vitamin D deficiency, unspecified; F41.9 Anxiety disorder, unspecified; Z79.82 Long term (current) use of aspirin
CPT/HCPCS: 50590; 74018; A9270; J0690; J1100; J2003; J2250; J2405; J2704; J3010; J7120

== ENCOUNTER 2024-05-17 10:30 | Outpatient (CLI) | payer MEDICARE, SELFPAY ==
--- NOTE | ~2024-05-17 | XR_ITS ---
XR abdomen/kub 1V Ordering provider: Baldev Vázquez MD History: . RIGHT KIDNEY STONE . Comparison: None. FINDINGS: BOWEL: Nonobstructive bowel gas pattern. ORGANOMEGALY: None. SIGNIFICANT PATHOLOGIC CALCIFICATIONS: Bilateral kidney stones more on the right side. Possibility of a stone in the urinary bladder is not excluded. OTHER: No free air is seen under the diaphragm. Degenerative changes of the spine. IMPRESSION: NO ACUTE ABDOMINAL FINDINGS. bilateral renal stones. Possible urinary bladder stone. Reviewed, dictated and finalized at location A. 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
== END 2024-05-17 10:31 | disposition home or self-care (01) ==
PROVIDERS: PCP Nurse Practitioner; Visit Provider Urology
DX: N20.0 Calculus of kidney (principal)
CPT/HCPCS: 74018

== ENCOUNTER 2024-08-14 11:12 | Emergency (ER) | payer MEDICARE, SELFPAY ==
[2024-08-14 11:24] VITALS: BP 157/80; PULSE 87; RESP 16; TEMP 36.4; O2SAT 99
--- NOTE | 2024-08-14 11:32 | ED.MALEGU ---
HPI - Male Genitourinary General Chief complaint: Urogenital-Male Stated complaint: urinary issue Time Seen by Provider: 08/14/24 11:30 Source: patient Mode of arrival: ambulatory Limitations: no limitations History of Present Illness HPI Narrative: Kvng is a 68-year-old male patient presenting to the clinic today with complaints pain to the tip of his penis for the past 2-3 days. He reports he was seen by urology and had a lithotripsy back in May and they stated that he had a small kidney stone still and his kidney that they did not to go in removed. Patient reports over the last few days he has had some discomfort to the tip of his penis and some bladder spasms. Contacted his urologist and they recommend him come in to be evaluated. Related Data Home Medications ?Medication ?Instructions ?Recorded ?Confirmed ?Last Taken ?Type alprazolam 0.5 mg tablet (Xanax) 0.5 mg PO TID 05/03/19 05/06/24 05/06/24 06:00 History aspirin 81 mg tablet,delayed 81 mg PO DAILY 05/03/19 05/06/24 04/28/24 History release (Adult Low Dose Aspirin) buspirone 10 mg tablet 10 mg PO TID 05/03/19 05/06/24 05/06/24 06:00 History citalopram 20 mg tablet (Celexa) 20 mg PO QAM 05/03/19 05/06/24 05/06/24 History 0600 niacin 500 mg tablet 500 mg PO DAILY 05/03/19 05/06/24 04/28/24 History omega 9-[id number]-fish oil 1,000 mg 1 cap PO BID 05/03/19 05/06/24 04/28/24 History (120 mg-180 mg) capsule (Fish Oil) trazodone 50 mg tablet 50 mg PO HS PRN Insomnia 11/08/20 04/25/24 02/03/21 History cholecalciferol (vitamin D3) 25 50 mcg PO BID 12/09/22 05/06/24 04/28/24 History mcg (1,000 unit) capsule hydroxyzine HCl 25 mg tablet 25 mg PO TID 04/25/24 04/25/24 Unknown History potassium citrate 10 mEq (1,080 10 meq PO BID 04/25/24 05/06/24 04/28/24 History mg) tablet,extended release Allergies Allergy/AdvReac Type Severity Reaction Status Date / Time erythromycin base Allergy Mild Unknown Verified 08/14/24 11:32 Review of Systems Review of Systems: Pertinent positives per HPI. Patient denies any fever, chills, rash, headache, visual changes, dizziness, cough, runny nose, sore throat, shortness of breath, chest pain, palpitations, nausea, vomiting, diarrhea, constipation, abdominal pain. [facility] Past Medical History Medical History Hernia Viral illness Anxiety Bilateral renal cysts Elevated PSA Impotence of organic origin Kidney stones Mixed hyperlipidemia On intermediate frame tender drug therapy Testicular hypofunction Vitamin D deficiency Surgical History Surgical History History of lithotripsy several times History of tonsillectomy History of hernia surgery LT inguinal History of cholecystectomy Family History Family History Father , Car accident Family history of diabetes mellitus in first degree relative Family history of heart disease in male family member before age 55 Sibling Family history of diabetes mellitus in first degree relative Mother , Multiple myeloma Family history of heart disease in male family member before age 55 Other Diabetes mellitus Family history of cardiovascular disease Family history of malignant neoplasm Hypertension Social History Social History Smoking status: Never smoker Tobacco type: cigarettes Second hand tobacco smoke exposure: No Alcohol intake: never Alcohol use details: VERY RARE - STATES MAYBE COUPLE TIMES A YEAR Substance use: never Substance use type: does not use Lack of Transportation: No Lack of Food: Never True Current Housing: I Have Housing Concerned About Future Housing: No Difficulty Paying Gas/Electric Bills: No Difficulty Paying for Meds: No Currently Unemployed: No Education: Trade/Vocational Certificate Difficulty w/ Childcare or Family Care: No Living arrangements: with family Additional living arrangements comments: Occupation/Education: retired Gender identity (if verbalized by the patient): Male Sexual Orientation (if Verbalized by the Patient): Straight or Heterosexual Spiritual care concerns: No Comments At the time of my signature, I reviewed and agree with the nursing past medical, surgical, social, and family history. There is no relevant family history pertinent to the patient complaint. Exam Narrative: General: Well-developed, well nourished, in no apparent distress. Head: Normocephalic, atraumatic. Cardio: Regular rate and rhythm, s1 and s2 normal, no murmur appreciated. Resp: Clear to auscultation bilaterally, no rhonchi, rales, wheezing or rubs. Abdomen: Soft, pliable, bowel sounds present in all quadrants, non-tender to palpation, no organomegly, no CVAT tenderness. : Circumcised male without corneal adhesions, no redness or swelling noted to the urethra or the glans penis, no discharge Course Course Emergency Course: Portions of this record may have been created with voice recognition software. Level of Care: Express Care Visit Vital Signs Vital signs: Vital Signs Temperature 36.4 C L 08/14/24 11:24 Pulse Rate 87 08/14/24 11:24 Respiratory Rate 16 08/14/24 11:24 Blood Pressure 157/80 H 08/14/24 11:24 Pulse Oximetry 99 08/14/24 11:24 Oxygen Delivery Room Air 08/14/24 11:24 Temperature 36.4 C L 08/14/24 11:24 Pulse Rate 87 08/14/24 11:24 Respiratory Rate 16 08/14/24 11:24 Blood Pressure 157/80 H 08/14/24 11:24 Pulse Oximetry 99 08/14/24 11:24 Oxygen Delivery Room Air 08/14/24 11:24 Vital signs reviewed MDM - Male Genitourinary MDM Narrative Medical decision making narrative: At the time of visit patient is resting comfortably on the exam table. Patient appears to be nontoxic. Labs: Urinalysis negative for any sign of infection or blood. Patient did pass a very small stone when he gave urine sample. Plan: I suspect patient was having bladder spasms/possible stone stuck in his ureter. Patient was able to pass the stone and his symptoms have resolved. Supportive measures were discussed with the patient and they voiced understanding discharge instructions and agrees to treatment plan. Return precautions reviewed Differential Diagnosis Differential diagnosis: Likely urinary tract infection, urethritis, epididymitis, prostatitis, acute retention of urine, inguinal hernia and other (Passed kidney stone) Lab Data Labs: Lab Results 08/14/24 Range/Units 11:39 POC Urine Color Yellow POC Urine Clarity Clear POC Urine pH 7.0 POC Ur Specif [place] 1.020 POC Urine Protein Negative (Negative) POC Ur Glucose (UA) Negative (Negative) POC Urine Ketones Negative (Negative) POC Urine Blood Negative (Negative) POC Urine Nitrite Negative (Negative) POC Urine Bilirubin Negative (Negative) POC Urine Urobilinogen 0.2 POC U Leukocyte Esteras Negative (Negative) Discharge Plan Discharge Clinical Impression: Kidney calculus Patient Disposition: Home, Self-Care Condition: Stable Instructions: Antibiotic Form, Kidney Stones (ED) Additional Instructions: Urinalysis is negative for any sign of blood or infection. You passed a kidney stone in the clinic today-this may have been caught near bladder or caught your urethra causing her symptoms Increase fluids and stay well hydrated Follow-up with your urologist/PCP as needed Patient Language: Nepali Prescriptions: No Action niacin 500 mg tablet 500 mg PO DAILY omega 9-gjs-[id number]-fish oil [Fish Oil] 1,000 mg (120 mg-180 mg) capsule 1 cap PO BID aspirin [Adult Low Dose Aspirin] 81 mg tablet,delayed release (DR/EC) 81 mg PO DAILY alprazolam [Xanax] 0.5 mg tablet 0.5 mg PO TID citalopram [Celexa] 20 mg tablet 20 mg PO QAM buspirone 10 mg tablet 10 mg PO TID trazodone 50 mg tablet 50 mg PO HS PRN (Reason: Insomnia) atorvastatin 20 mg tablet 20 mg PO HS Qty: 90 1RF Rx Instructions: TAKE 1 TABLET BY MOUTH DAILY hydroxyzine HCl 25 mg tablet 25 mg PO TID potassium citrate 10 mEq (1,080 mg) tablet extended release 10 meq PO BID cholecalciferol (vitamin D3) 25 mcg (1,000 unit) capsule 50 mcg PO BID Follow-up/Referrals: Harjeet Mcleod APRN [Primary Care Provider] - Time of Disposition: 11:43 Quality NIHSS Nursing Documentation ED NIHSS nursing documentation: reviewed/agree
[2024-08-14 11:42] LABS: EDUAAPPEAR Clear; EDUABILI Negative (Negative); EDUABLOOD Negative (Negative); EDUACOLOR1 Yellow; EDUAGLUCOSE Negative (Negative); EDUAKETONE Negative (Negative); EDUALEUKO Negative (Negative); EDUANITRATE Negative (Negative); EDUAPROTEIN Negative (Negative); EDUAUROBILI 0.2
== END 2024-08-14 11:45 | disposition home or self-care (01) ==
PROVIDERS: Emergency Provider Nurse Practitioner Family; PCP Nurse Practitioner
DX: N20.0 Calculus of kidney (principal); Z79.82 Long term (current) use of aspirin; F41.9 Anxiety disorder, unspecified; Z87.442 Personal history of urinary calculi; E55.9 Vitamin D deficiency, unspecified; Z79.899 Other long term (current) drug therapy; E78.2 Mixed hyperlipidemia
CPT/HCPCS: 81003; 99212; G0463

== ENCOUNTER 2024-10-26 11:06 | Outpatient (CLI) | payer MEDICARE, SELFPAY ==
--- NOTE | ~2024-10-26 | XR_ITS ---
XR abdomen/kub 1V Ordering provider: Baldev Vázquez MD History: . N20.0 - Calculus of kidney ANNUAL W/RECENT STONE PASS PER PT . Comparison: None. FINDINGS: BOWEL: Nonobstructive bowel gas pattern. ORGANOMEGALY: None. SIGNIFICANT PATHOLOGIC CALCIFICATIONS: Bilateral kidney stones. OTHER: No free air is seen under the diaphragm. Degenerative changes of the spine. Left sacroiliitis. IMPRESSION: NO ACUTE ABDOMINAL FINDINGS. Bilateral kidney stones. Reviewed, dictated and finalized at location A.
--- OUTSIDE RECORDS SUMMARY | 2024-10-26 13:05 | XMS_ITS | Patient Health Record ---
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 Role Phone Harsha SAHU, Harjeet Primary Care Provider UnavailLizzette Waldron Unavailable [phone] HemCassandra padilla Unavailable [phone] Migration, Provider Unavailable Unavailable Allergies No Known Allergies Results Component Value Reference Range Notes UDT Reviewed date:04/01/2024 01:27:04 PM Interpretation: Performing Lab: Notes/Report: THC N 0 - 50 ng/ml Cocaine N 0 - 300 ng/ml Amphetamine N 0 - 1000 ng/ml Buprenorphine (BUP) N 0 - 10 ng/ml Secobarbital (Bar) N 0 - 300 ng/ml Oxazepam (BZO) P 0 - 300 ng/ml 1-akzxgthiux-7,3-ebebydnp-5,3-diphenylpyrrolidine (VAN P) N 0 - 300 ng/ml Methamphetamine (MET) N 0 - 1000 ng/ml Methylenedioxymethamphetamine (MDMA) N 0 - 500 ng/ml Morphine (MOP 300/RWO2544) N 0 - 300 ng/ml Methadone (MTD) N 0 - 300 ng/ml Phencyclidine (PCP) N 0 - 25 ng/ml Nortriptyline (TCA) N 0 - 1000 ng/ml Oxycodone N 0 - 300 ng/ml x N 0 - 300 ng/ml Reason For Referral No Information Medications Medication SIG (Take, Route, Frequency, Duration) Notes Start Date End Date Status hydrOXYzine HCl 25 MG 1 tablet Orally tw ice a day for 90 days D/C TID dose Active traZODone HCl 50 MG 1 tablet at bedtime Oral at bedtime for 90 days Active busPIRone HCl 10 MG 1 tablet Oral Twice a day for 30 days d/c TID dose Active Citalopram Hydrobromide 20 MG 1 tablet Oral Once a day for 90 days Active Potassium Bicarb-Citric Acid Active ALPRAZolam 0.5 MG 1 tablet Oral three times a day for 30 days d/c BID dose 06/14/2024 Active Atorvastatin Calcium 20 MG Oral 09/25/2023 Active Immunizations Vaccine Route Administration Date Status Comme nts Influenza virus vaccine, quadrivalent (IIV4), split virus, 0.25 mL dosage Unknown 05/11/2016 Administered Influenza virus vaccine, quadrivalent (IIV4), split virus, 0.25 mL dosage Unknown 05/06/2018 Administered Influenza virus vaccine, quadrivalent (IIV4), split virus, 0.25 mL dosage Unknown 06/25/2021 Administered Influenza, seasonal, injecta ble, preservative free, 3 yrs and above Unknown 07/15/2012 Administered Influenza, seasonal, injecta ble, preservative free, 3 yrs and above Unknown 04/13/2014 Administered Influenza, unspecified formulation Unknown 07/07/2023 A dministered Novel [id number]-[id number], preservative free Unknown 05/08/2018 Administered Novel [id number]-[id number], preservative free Unknown 03/29/2020 Administered Pfizer Biontech Covid-19 Vac cine 2nd dose Unknown 11/06/2020 Administered Pfizer Biontech Covid-19 Vac cine 2nd dose Unknown 11/27/2020 Administered Pfizer [employer]ion[employer] Covid-19 Vac cine 2nd dose Unknown 06/25/2021 Administered Pneumococcal conjugate PCV 13 Unknown 07/07/2023 Admini stered Tdap Unknown 10/06/2015 Administered Zoster Unknown 05/11/2016 Administered Zoster Unknown 03/29/2020 Administered Zoster Unknown 05/28/2020 Administered Social History Tobacco Use: Social History Observation Description Date Details (start date - stop date) Never Smoker NA - NA Sex Assigned At : Social History Observation Description Sex Assigned At Male Household Question Answer Notes Marital status: Number of adults in household: 2 Level of education: retired Sexual History Question Answer Notes Had sex in the past 12 months (vaginal, oral, or anal)? Yes with Women only Tobacco Control (Standard) Question Answer Notes Tobacco use: Nonsmoker Additional Findings: Tobacco non-user Current no nsmoker AUDIT-C (Standard) Question Answer Notes Did you have a drink containing alcohol in the p ast year? 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) 4 Active confirmed Problem Panic disorder (172588014) Panic disorder [episodic paroxysmal anxiety] without agoraphobia (F41.0) 4 Active confirmed Problem 378345359 MDD (major depressive disorder), recurrent episode, moderate (F33.1) Active confirmed Vital Signs Heart Rate 84 /min 06/14/2024 Respiratory Rate 18 /min 04/15/2024 Height-cm 170.18 cm 06/14/2024 Blood pressure diastolic 85 mm Hg 06/14/2024 Weight-kg 68.04 kg 06/14/2024 Height 67.00 in 06/14/2024 Blood pressure systolic 143 mm Hg 06/14/2024 Weight 150 lbs 06/14/2024 BMI 23.49 kg/m2 06/14/2024 Encounters Encounter Location Date Provider Diagnosis [facility] [employer] [facility] [address] [facility] [address] [address] 04/19/2024 Cassandra Hemann Generalized anxiety disorder F41.1 ; Panic disorder [episodic paroxysmal anxiety] without agoraphobia F41.0 and MDD (major depressive disorder), recurrent episode, moderate F33.1 [facility] [employer] [facility] [address] [address] [address] 12/28/2023 Cassandra Hemann Generalized anxiety disorder F41.1 and Panic disorder [episodic paroxysmal anxiety] without agoraphobia F41.0 [facility] [employer] [facility] [employer] [address] 02/29/2024 Cassandra Hemann Generalized anxiety disorder F41.1 and Panic disorder [episodic paroxysmal anxiety] without agoraphobia F41.0 [facility] [employer] [facility] [address] [facility] [address] [address] 03/24/2024 Lizzette Thery Generalized anxiety disorder F41.1 ; Panic disorder [episodic paroxysmal anxiety] without agoraphobia F41.0 ; Primary insomnia F51.01 and Other [facility] (current) drug therapy Z79.899 [facility] [address] [place] [address] 04/01/2024 Lizzette Thery Generalized anxiety disorder F41.1 ; Panic disorder [episodic paroxysmal anxiety] without agoraphobia F41.0 ; Primary insomnia F51.01 ; Other [facility] (current) drug therapy Z79.899 and MDD (major depressive disorder), recurrent episode, moderate F33.1 [facility] [address] [place] [address] 04/07/2024 Cassandra Hemann Generalized anxiety disorder F41.1 and Panic disorder [episodic paroxysmal anxiety] without agoraphobia F41.0 [facility] [address] [place] [address] 04/15/2024 Lizzette Thery Generalized anxiety disorder F41.1 ; Panic disorder [episodic paroxysmal anxiety] without agoraphobia F41.0 ; Primary insomnia F51.01 ; Other 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 Z79.899 and MDD (major depressive disorder), recurrent episode, moderate F33.1 [facility] [address] [place] [address] 04/28/2024 Cassandra Hemann Generalized anxiety disorder F41.1 and MDD (major depressive disorder), recurrent episode, moderate F33.1 [facility] [address] [place] [address] 05/05/2024 Cassandra Hemann Generalized anxiety disorder F41.1 and MDD (major depressive disorder), recurrent episode, moderate F33.1 [facility] [address] [place] [address] 05/18/2024 Cassandra Hemann Generalized anxiety disorder F41.1 and MDD (major depressive disorder), recurrent episode, moderate F33.1 [facility] [address] [place] [address] 06/07/2024 Cassandra Hemann Generalized anxiety disorder F41.1 and MDD (major depressive disorder), recurrent episode, moderate F33.1 [facility] [address] [place] [address] 06/14/2024 Lizzette Leon Generalized anxiety disorder F41.1 ; Panic disorder [episodic paroxysmal anxiety] without agoraphobia F41.0 ; Primary insomnia F51.01 ; 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 Z79.899 and MDD (major depressive disorder), recurrent episode, moderate F33.1 [facility] [address] [place] [address] 07/07/2024 Cassandra Hemann Generalized anxiety disorder F41.1 and MDD (major depressive disorder), recurrent episode, moderate F33.1 [facility] [address] [place] [address] 08/10/2024 Cassandra Hemann Generalized anxiety disorder F41.1 and MDD (major depressive disorder), recurrent episode, moderate F33.1 [facility] [address] [place] [address] 11/05/2023 Provider Migration [facility], [facility] [address] [place] [address] 11/21/2023 Provider Migration [facility], [facility] [address] [place] [address] 11/22/2023 Provider Migration [facility] [employer], [facility] [address] [place] [address] 11/23/2023 Provider Migration [facility], [facility] [address] [place] [address] 01/08/2024 Lizzette Leon [facility], [facility] [address] [place] [address] 03/31/2024 Lizzette Leon [facility], [facility] [address] [place] [address] 03/31/2024 Lizzette Leon [facility], [facility] [address] [place] [address] 08/31/2024 Lizzette Leon Generalized anxiety disorder F41.1 Assessments Encounter Date Diagnosis (ICD Code) Assessment Notes Treatment Notes Treatment Clinical Notes Section Notes 12/28/2023 Generalized anxiety disorder (ICD-10 - F41.1) 12/28/2023 Panic disorder [episodic paroxysmal anxiety] without agoraphobia (ICD-10 - F41.0) 02/29/2024 Generalized anxiety disorder (ICD-10 - F41.1) 02/29/2024 Panic disorder [episodic paroxysmal anxiety] without agoraphobia (ICD-10 - F41.0) 03/24/2024 Generalized anxiety disorder (ICD-10 - F41.1) Learning About Generalized Anxiety Disorder material was published, Generalized Anxiety Disorder: Care Instructions material was published, Learning About Anxiety Disorders material was published Anxiety- increase anxiety with excessive worries Celexa 20 mg daily, will increase Xanax 0.5 mg three times a day Buspar 10 mg three times a day Panic- Xanax 0.5 mg three times a day Buspar 10 mg three times a day Primary insomnia- Trazodone 50 mg bedtime continue therapy http_s://www.kirk. org/Wibdy-Xvscpe-R llness/Mental-Heal th-Conditions http_s://psych[employer].com/depression /qrk-ktnmgekpc-xcm ihagu-ze-onqlndatj n#treatments http__s://www.nimh .nih.gov/health/to pics/mental-health -medications http__s://www.kirk .org/About-Mental- Illness/Treatments /Suiuyr-Hcugvj-Iio ications educated on all medications, benefits, side effects and risk, and educated on depression, anxiety, and ADHD, mood d/o and educated on compliance of medications, metabolic and movement d/o education appointment's, continue therapy discussion with patient about course of treatment and patient instructions. education on serotonin syndrome Discussed and educated pt regarding benzodiazepines are generally not intended for prolonged use and that use can cause tolerance, dependence, depression, and associated memory issues including dementias (this list is not exhaustive). Benzodiazepine use is generally not recommended concurrently with pain medications and/or other controlled substances educated on all medications, benefits, side effects and risk, and educated on depression, anxiety, and ADHD, mood d/o and educated on compliance of medications, metabolic and movement d/o education appointment is, continue therapy discussion with patient about course of treatment and patient instructions. education on serotonin syndrome SSRI/SNRI side effects discussed including but not limited to, gastric upset, nausea, vomiting, diarrhea and/or constipation, weight changes, sexual side effects including loss of libido, increased suicidal thoughts/behaviors in children and young adults, and serotonin syndrome. Medication Management and Follow-Up - Plan: - Schedule follow-up appointments every 1-3 months to monitor the patient's response to the medication regimen. - Reinforce the importance of avoiding recreational drug use due to potential neurotoxicity and interactions with prescribed medications. 03/24/2024 Panic disorder [episodic paroxysmal anxiety] without agoraphobia (ICD-10 - F41.0) Panic Attacks: Care Instructions material was published Anxiety- increase anxiety with excessive worries Celexa 20 mg daily, will increase Xanax 0.5 mg three times a day Buspar 10 mg three times a day Panic- Xanax 0.5 mg three times a day Buspar 10 mg three times a day Primary insomnia- Trazodone 50 mg bedtime continue therapy http_s://www.kirk. org/Gecmw-Jfzqvx-Y llness/Mental-Heal th-Conditions http_s://psychcent [employer].com/depression /bzq-vsvgkccoz-ewc mdcuz-uw-jmsypnjzd n#treatments http__s://www.nimh .nih.gov/health/to pics/mental-health -medications http__s://www.kirk .org/About-Mental- Illness/Treatments /Ybxebj-Wqvosd-Tms ications educated on all medications, benefits, side effects and risk, and educated on depression, anxiety, and ADHD, mood d/o and educated on compliance of medications, metabolic and movement d/o education appointment's, continue therapy discussion with patient about course of treatment and patient instructions. education on serotonin syndrome Discussed and educated pt regarding benzodiazepines are generally not intended for prolonged use and that use can cause tolerance, dependence, depression, and associated memory issues including dementias (this list is not exhaustive). Benzodiazepine use is generally not recommended concurrently with pain medications and/or other controlled substances educated on all medications, benefits, side effects and risk, and educated on depression, anxiety, and ADHD, mood d/o and educated on compliance of medications, metabolic and movement d/o education appointment is, continue therapy discussion with patient about course of treatment and patient instructions. education on serotonin syndrome SSRI/SNRI side effects discussed including but not limited to, gastric upset, nausea, vomiting, diarrhea and/or constipation, weight changes, sexual side effects including loss of libido, increased suicidal thoughts/behaviors in children and young adults, and serotonin syndrome. Medication Management and Follow-Up - Plan: - Schedule follow-up appointments every 1-3 months to monitor the patient's response to the medication regimen. - Reinforce the importance of avoiding recreational drug use due to potential neurotoxicity and interactions with prescribed medications. 04/01/2024 Generalized anxiety disorder (ICD-10 - F41.1) Learning About Generalized Anxiety Disorder material was published, Generalized Anxiety Disorder: Care Instructions material was published, Learning About Anxiety Disorders material was published depression- Celexa 20 mg daily Anxiety- increase anxiety with excessive worries- schedule therapy weekly Celexa 20 mg daily, Xanax 0.5 mg three times a day Buspar 10 mg three times a day Panic- ADD Vistaril 25 mg three times a day Xanax 0.5 mg three times a day Buspar 10 mg three times a day Primary insomnia- Trazodone 50 mg bedtime continue therapy http_s://www.kirk. org/Awkub-Hmffef-X llness/Mental-Heal th-Conditions http_s://psychcent [employer].com/depression /wkb-tbesxdxaa-iyj ywfyn-ij-jbiupzvkc n#treatments http__s://www.nimh .nih.gov/health/to pics/mental-health -medications http__s://www.kirk .org/About-Mental- Illness/Treatments /Uriwxu-Lgbdaz-Wfy ications educated on all medications, benefits, side effects and risk, and educated on depression, anxiety, and ADHD, mood d/o and educated on compliance of medications, metabolic and movement d/o education appointment's, continue therapy discussion with patient about course of treatment and patient instructions. education on serotonin syndrome Discussed and educated pt regarding benzodiazepines are generally not intended for prolonged use and that use can cause tolerance, dependence, depression, and associated memory issues including dementias (this list is not exhaustive). Benzodiazepine use is generally not recommended concurrently with pain medications and/or other controlled substances educated on all medications, benefits, side effects and risk, and educated on depression, anxiety, and ADHD, mood d/o and educated on compliance of medications, metabolic and movement d/o education appointment is, continue therapy discussion with patient about course of treatment and patient instructions. education on serotonin syndrome SSRI/SNRI side effects discussed including but not limited to, gastric upset, nausea, vomiting, diarrhea and/or constipation, weight changes, sexual side effects including loss of libido, increased suicidal thoughts/behaviors in children and young adults, and serotonin syndrome. Medication Management and Follow-Up - Plan: - Schedule follow-up appointments every 1-3 months to monitor the patient's response to the medication regimen. - Reinforce the importance of avoiding recreational drug use due to potential neurotoxicity and interactions with prescribed medications. 04/07/2024 Generalized anxiety disorder (ICD-10 - F41.1) 04/07/2024 Panic disorder [episodic paroxysmal anxiety] without agoraphobia (ICD-10 - F41.0) 04/15/2024 Generalized anxiety disorder (ICD-10 - F41.1) Learning About Generalized Anxiety Disorder material was published, Generalized Anxiety Disorder: Care Instructions material was published, Learning About Anxiety Disorders material was published depression- Celexa 20 mg daily Anxiety- has reported improvement wiht rx still have anxiety and worries - contibue therapy - schedule therapy weekly Celexa 20 mg daily, Xanax 0.5 mg three times a day Buspar 10 mg three times a day Panic- Vistaril 25 mg three times a day Xanax 0.5 mg three times a day Buspar 10 mg three times a day Primary insomnia- Trazodone 50 mg bedtime continue therapy http_s://www.kirk. org/Xixzx-Ayxnsc-F llness/Mental-Heal th-Conditions http_s://psychThinkorsw[employer].com/depression /ykn-ssjvcjwrq-ljx zzshf-je-kehlqyaki n#treatments http__s://www.nimh .nih.gov/health/to pics/mental-health -medications http__s://www.kirk .org/About-Mental- Illness/Treatments /Dvfdaf-Onntoa-Tow ications educated on all medications, benefits, side effects and risk, and educated on depression, anxiety, and ADHD, mood d/o and educated on compliance of medications, metabolic and movement d/o education appointment's, continue therapy discussion with patient about course of treatment and patient instructions. education on serotonin syndrome Discussed and educated pt regarding benzodiazepines are generally not intended for prolonged use and that use can cause tolerance, dependence, depression, and associated memory issues including dementias (this list is not exhaustive). Benzodiazepine use is generally not recommended concurrently with pain medications and/or other controlled substances educated on all medications, benefits, side effects and risk, and educated on depression, anxiety, and ADHD, mood d/o and educated on compliance of medications, metabolic and movement d/o education appointment is, continue therapy discussion with patient about course of treatment and patient instructions. education on serotonin syndrome SSRI/SNRI side effects discussed including but not limited to, gastric upset, nausea, vomiting, diarrhea and/or constipation, weight changes, sexual side effects including loss of libido, increased suicidal thoughts/behaviors in children and young adults, and serotonin syndrome. Medication Management and Follow-Up - Plan: - Schedule follow-up appointments every 1-3 months to monitor the patient's response to the medication regimen. - Reinforce the importance of avoiding recreational drug use due to potential neurotoxicity and interactions with prescribed medications. 04/28/2024 Generalized anxiety disorder (ICD-10 - F41.1) 04/28/2024 MDD (major depressive disorder), recurrent episode, moderate (ICD-10 - F33.1) 05/05/2024 Generalized anxiety disorder (ICD-10 - F41.1) 05/05/2024 MDD (major depressive disorder), recurrent episode, moderate (ICD-10 - F33.1) 05/18/2024 Generalized anxiety disorder (ICD-10 - F41.1) 05/18/2024 MDD (major depressive disorder), recurrent episode, moderate (ICD-10 - F33.1) 06/07/2024 Generalized anxiety disorder (ICD-10 - F41.1) 06/07/2024 MDD (major depressive disorder), recurrent episode, moderate (ICD-10 - F33.1) 06/14/2024 Generalized anxiety disorder (ICD-10 - F41.1) Learning About Generalized Anxiety Disorder material was published, Generalized Anxiety Disorder: Care Instructions material was published, Learning About Anxiety Disorders material was published depression- Celexa 20 mg daily stable Anxiety- has reported improvement - continue therapy - schedule therapy Celexa 20 mg daily, Xanax 0.5 mg three times a day Buspar 10 mg twice a day- patient reported has been taking BID Panic- Vistaril 25 mg twice a day- patient reported been taking BID Xanax 0.5 mg three times a day Buspar 10 mg twice a day Primary insomnia- Trazodone 50 mg bedtime continue therapy http_s://www.kirk. org/Lunhd-Wqnasq-T llness/Mental-Heal th-Conditions http_s://psychcent InGameNow.com/depression /vxa-rdpjtmcmk-jsc obfdi-na-cbmegvsip n#treatments http__s://www.[facility] .nih.gov/health/to pics/mental-health -medications http__s://www.kirk .org/About-Mental- Illness/Treatments /Dvposi-Wudpnd-Cvr ications educated on all medications, benefits, side effects and risk, and educated on depression, anxiety, and ADHD, mood d/o and educated on compliance of medications, metabolic and movement d/o education appointment's, continue therapy discussion with patient about course of treatment and patient instructions. education on serotonin syndrome Discussed and educated pt regarding benzodiazepines are generally not intended for prolonged use and that use can cause tolerance, dependence, depression, and associated memory issues including dementias (this list is not exhaustive). Benzodiazepine use is generally not recommended concurrently with pain medications and/or other controlled substances educated on all medications, benefits, side effects and risk, and educated on depression, anxiety, and ADHD, mood d/o and educated on compliance of medications, metabolic and movement d/o education appointment is, continue therapy discussion with patient about course of treatment and patient instructions. education on serotonin syndrome SSRI/SNRI side effects discussed including but not limited to, gastric upset, nausea, vomiting, diarrhea and/or constipation, weight changes, sexual side effects including loss of libido, increased suicidal thoughts/behaviors in children and young adults, and serotonin syndrome. Medication Management and Follow-Up - Plan: - Schedule follow-up appointments every 1-3 months to monitor the patient's response to the medication regimen. - Reinforce the importance of avoiding recreational drug use due to potential neurotoxicity and interactions with prescribed medications. 04/01/2024 Panic disorder [episodic paroxysmal anxiety] without agoraphobia (ICD-10 - F41.0) Panic Attacks: Care Instructions material was published depression- Celexa 20 mg daily Anxiety- increase anxiety with excessive worries- schedule therapy weekly Celexa 20 mg daily, Xanax 0.5 mg three times a day Buspar 10 mg three times a day Panic- ADD Vistaril 25 mg three times a day Xanax 0.5 mg three times a day Buspar 10 mg three times a day Primary insomnia- Trazodone 50 mg bedtime continue therapy http_s://www.kirk. org/Zfnjl-Zxwzzd-A llness/Mental-Heal th-Conditions http_s://[employer].com/depression /ead-vkvmhwxmz-oqg nnwwo-xu-jyllypmfw n#treatments http__s://www.[facility] .nih.gov/health/to pics/mental-health -medications http__s://www.[facility] .org/About-Mental- Illness/Treatments /Pbhidw-Kaquul-Duv ications educated on all medications, benefits, side effects and risk, and educated on depression, anxiety, and ADHD, mood d/o and educated on compliance of medications, metabolic and movement d/o education appointment's, continue therapy discussion with patient about course of treatment and patient instructions. education on serotonin syndrome Discussed and educated pt regarding benzodiazepines are generally not intended for prolonged use and that use can cause tolerance, dependence, depression, and associated memory issues including dementias (this list is not exhaustive). Benzodiazepine use is generally not recommended concurrently with pain medications and/or other controlled substances educated on all medications, benefits, side effects and risk, and educated on depression, anxiety, and ADHD, mood d/o and educated on compliance of medications, metabolic and movement d/o education appointment is, continue therapy discussion with patient about course of treatment and patient instructions. education on serotonin syndrome SSRI/SNRI side effects discussed including but not limited to, gastric upset, nausea, vomiting, diarrhea and/or constipation, weight changes, sexual side effects including loss of libido, increased suicidal thoughts/behaviors in children and young adults, and serotonin syndrome. Medication Management and Follow-Up - Plan: - Schedule follow-up appointments every 1-3 months to monitor the patient's response to the medication regimen. - Reinforce the importance of avoiding recreational drug use due to potential neurotoxicity and interactions with prescribed medications. 04/19/2024 Generalized anxiety disorder (ICD-10 - F41.1) 04/19/2024 Panic disorder [episodic paroxysmal anxiety] without agoraphobia (ICD-10 - F41.0) 07/07/2024 Generalized anxiety disorder (ICD-10 - F41.1) 07/07/2024 MDD (major depressive disorder), recurrent episode, moderate (ICD-10 - F33.1) 08/10/2024 Generalized anxiety disorder (ICD-10 - F41.1) 08/10/2024 MDD (major depressive disorder), recurrent episode, moderate (ICD-10 - F33.1) 08/31/2024 Generalized anxiety disorder (ICD-10 - F41.1) 04/19/2024 MDD (major depressive disorder), recurrent episode, moderate (ICD-10 - F33.1) 06/14/2024 Panic disorder [episodic paroxysmal anxiety] without agoraphobia (ICD-10 - F41.0) Panic Attacks: Care Instructions material was published depression- Celexa 20 mg daily stable Anxiety- has reported improvement - continue therapy - schedule therapy Celexa 20 mg daily, Xanax 0.5 mg three times a day Buspar 10 mg twice a day- patient reported has been taking BID Panic- Vistaril 25 mg twice a day- patient reported been taking BID Xanax 0.5 mg three times a day Buspar 10 mg twice a day Primary insomnia- Trazodone 50 mg bedtime continue therapy http_s://www.[facility]. org/Mcihn-Ubvvyg-E llness/Mental-Heal th-Conditions http_s://[facility] [employer].com/depression /doc-forktzkry-chh cstfd-mx-zaikttcfo n#treatments http__s://www.[facility] .nih.gov/health/to pics/mental-health -medications http__s://www.[facility] .org/About-Mental- Illness/Treatments /Ojknxf-Yceqva-Klu ications educated on all medications, benefits, side effects and risk, and educated on depression, anxiety, and ADHD, mood d/o and educated on compliance of medications, metabolic and movement d/o education appointment's, continue therapy discussion with patient about course of treatment and patient instructions. education on serotonin syndrome Discussed and educated pt regarding benzodiazepines are generally not intended for prolonged use and that use can cause tolerance, dependence, depression, and associated memory issues including dementias (this list is not exhaustive). Benzodiazepine use is generally not recommended concurrently with pain medications and/or other controlled substances educated on all medications, benefits, side effects and risk, and educated on depression, anxiety, and ADHD, mood d/o and educated on compliance of medications, metabolic and movement d/o education appointment is, continue therapy discussion with patient about course of treatment and patient instructions. education on serotonin syndrome SSRI/SNRI side effects discussed including but not limited to, gastric upset, nausea, vomiting, diarrhea and/or constipation, weight changes, sexual side effects including loss of libido, increased suicidal thoughts/behaviors in children and young adults, and serotonin syndrome. Medication Management and Follow-Up - Plan: - Schedule follow-up appointments every 1-3 months to monitor the patient's response to the medication regimen. - Reinforce the importance of avoiding recreational drug use due to potential neurotoxicity and interactions with prescribed medications. 04/15/2024 Panic disorder [episodic paroxysmal anxiety] without agoraphobia (ICD-10 - F41.0) Panic Attacks: Care Instructions material was published depression- Celexa 20 mg daily Anxiety- has reported improvement wiht rx still have anxiety and worries - contibue therapy - schedule therapy weekly Celexa 20 mg daily, Xanax 0.5 mg three times a day Buspar 10 mg three times a day Panic- Vistaril 25 mg three times a day Xanax 0.5 mg three times a day Buspar 10 mg three times a day Primary insomnia- Trazodone 50 mg bedtime continue therapy http_s://www.[facility]. org/Ynobx-Pnpbgt-B llness/Mental-Heal th-Conditions http_s://[employer].com/depression /wgq-xbtxwivni-kem ikgek-hf-rpzizxigf n#treatments http__s://www.[facility] .nih.gov/health/to pics/mental-health -medications http__s://www.[facility] .org/About-Mental- Illness/Treatments /Dpsvou-Xlnmgi-Qky ications educated on all medications, benefits, side effects and risk, and educated on depression, anxiety, and ADHD, mood d/o and educated on compliance of medications, metabolic and movement d/o education appointment's, continue therapy discussion with patient about course of treatment and patient instructions. education on serotonin syndrome Discussed and educated pt regarding benzodiazepines are generally not intended for prolonged use and that use can cause tolerance, dependence, depression, and associated memory issues including dementias (this list is not exhaustive). Benzodiazepine use is generally not recommended concurrently with pain medications and/or other controlled substances educated on all medications, benefits, side effects and risk, and educated on depression, anxiety, and ADHD, mood d/o and educated on compliance of medications, metabolic and movement d/o education appointment is, continue therapy discussion with patient about course of treatment and patient instructions. education on serotonin syndrome SSRI/SNRI side effects discussed including but not limited to, gastric upset, nausea, vomiting, diarrhea and/or constipation, weight changes, sexual side effects including loss of libido, increased suicidal thoughts/behaviors in children and young adults, and serotonin syndrome. Medication Management and Follow-Up - Plan: - Schedule follow-up appointments every 1-3 months to monitor the patient's response to the medication regimen. - Reinforce the importance of avoiding recreational drug use due to potential neurotoxicity and interactions with prescribed medications. 04/01/2024 Primary insomnia (ICD-10 - F51.01) Insomnia: Care Instructions material was published depression- Celexa 20 mg daily Anxiety- increase anxiety with excessive worries- schedule therapy weekly Celexa 20 mg daily, Xanax 0.5 mg three times a day Buspar 10 mg three times a day Panic- ADD Vistaril 25 mg three times a day Xanax 0.5 mg three times a day Buspar 10 mg three times a day Primary insomnia- Trazodone 50 mg bedtime continue therapy http_s://www.[facility]. org/Msudj-Vwjaue-K llness/Mental-Heal th-Conditions http_s://[employer].com/depression /khq-wpavlhkwl-czt ehqds-me-iomarmxnh n#treatments http__s://www.[facility] .nih.gov/health/to pics/mental-health -medications http__s://www.[facility] .org/About-Mental- Illness/Treatments /Njrsef-Fiepey-Yto ications educated on all medications, benefits, side effects and risk, and educated on depression, anxiety, and ADHD, mood d/o and educated on compliance of medications, metabolic and movement d/o education appointment's, continue therapy discussion with patient about course of treatment and patient instructions. education on serotonin syndrome Discussed and educated pt regarding benzodiazepines are generally not intended for prolonged use and that use can cause tolerance, dependence, depression, and associated memory issues including dementias (this list is not exhaustive). Benzodiazepine use is generally not recommended concurrently with pain medications and/or other controlled substances educated on all medications, benefits, side effects and risk, and educated on depression, anxiety, and ADHD, mood d/o and educated on compliance of medications, metabolic and movement d/o education appointment is, continue therapy discussion with patient about course of treatment and patient instructions. education on serotonin syndrome SSRI/SNRI side effects discussed including but not limited to, gastric upset, nausea, vomiting, diarrhea and/or constipation, weight changes, sexual side effects including loss of libido, increased suicidal thoughts/behaviors in children and young adults, and serotonin syndrome. Medication Management and Follow-Up - Plan: - Schedule follow-up appointments every 1-3 months to monitor the patient's response to the medication regimen. - Reinforce the importance of avoiding recreational drug use due to potential neurotoxicity and interactions with prescribed medications. 03/24/2024 Primary insomnia (ICD-10 - F51.01) Insomnia: Care Instructions material was published Anxiety- increase anxiety with excessive worries Celexa 20 mg daily, will increase Xanax 0.5 mg three times a day Buspar 10 mg three times a day Panic- Xanax 0.5 mg three times a day Buspar 10 mg three times a day Primary insomnia- Trazodone 50 mg bedtime continue therapy http_s://www.[facility]. org/Gkwth-Nqjkzp-J llness/Mental-Heal th-Conditions http_s://[employer].com/depression /juv-xzzjvpeby-xhg ufefn-xg-ivtsywmmu n#treatments http__s://www.[facility] .nih.gov/health/to pics/mental-health -medications http__s://www.[facility] .org/About-Mental- Illness/Treatments /Arogod-Swlbls-Kjg ications educated on all medications, benefits, side effects and risk, and educated on depression, anxiety, and ADHD, mood d/o and educated on compliance of medications, metabolic and movement d/o education appointment's, continue therapy discussion with patient about course of treatment and patient instructions. education on serotonin syndrome Discussed and educated pt regarding benzodiazepines are generally not intended for prolonged use and that use can cause tolerance, dependence, depression, and associated memory issues including dementias (this list is not exhaustive). Benzodiazepine use is generally not recommended concurrently with pain medications and/or other controlled substances educated on all medications, benefits, side effects and risk, and educated on depression, anxiety, and ADHD, mood d/o and educated on compliance of medications, metabolic and movement d/o education appointment is, continue therapy discussion with patient about course of treatment and patient instructions. education on serotonin syndrome SSRI/SNRI side effects discussed including but not limited to, gastric upset, nausea, vomiting, diarrhea and/or constipation, weight changes, sexual side effects including loss of libido, increased suicidal thoughts/behaviors in children and young adults, and serotonin syndrome. Medication Management and Follow-Up - Plan: - Schedule follow-up appointments every 1-3 months to monitor the patient's response to the medication regimen. - Reinforce the importance of avoiding recreational drug use due to potential neurotoxicity and interactions with prescribed medications. 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 org/Sickr-Cwqrix-J llness/Mental-Heal th-Conditions http_s://[employer].com/depression /dto-zcewfdflf-dbz ddrxo-tw-tizghrtrr n#treatments http__s://www.[facility] .nih.gov/health/to pics/mental-health -medications http__s://www.[facility] .org/About-Mental- Illness/Treatments /Eentkq-Bcybdj-Dqe ications educated on all medications, benefits, side effects and risk, and educated on depression, anxiety, and ADHD, mood d/o and educated on compliance of medications, metabolic and movement d/o education appointment's, continue therapy discussion with patient about course of treatment and patient instructions. education on serotonin syndrome Discussed and educated pt regarding benzodiazepines are generally not intended for prolonged use and that use can cause tolerance, dependence, depression, and associated memory issues including dementias (this list is not exhaustive). Benzodiazepine use is generally not recommended concurrently with pain medications and/or other controlled substances educated on all medications, benefits, side effects and risk, and educated on depression, anxiety, and ADHD, mood d/o and educated on compliance of medications, metabolic and movement d/o education appointment is, continue therapy discussion with patient about course of treatment and patient instructions. education on serotonin syndrome SSRI/SNRI side effects discussed including but not limited to, gastric upset, nausea, vomiting, diarrhea and/or constipation, weight changes, sexual side effects including loss of libido, increased suicidal thoughts/behaviors in children and young adults, and serotonin syndrome. Medication Management and Follow-Up - Plan: - Schedule follow-up appointments every 1-3 months to monitor the patient's response to the medication regimen. - Reinforce the importance of avoiding recreational drug use due to potential neurotoxicity and interactions with prescribed medications. 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 org/Xvkez-Mhvvfk-Y llness/Mental-Heal th-Conditions http_s://[employer].com/depression /tuk-kfhjgpbub-vad jmukt-yy-lniltunvf n#treatments http__s://www.[facility] .nih.gov/health/to pics/mental-health -medications http__s://www.[facility] .org/About-Mental- Illness/Treatments /Dljzhn-Urvkpy-Vpo ications educated on all medications, benefits, side effects and risk, and educated on depression, anxiety, and ADHD, mood d/o and educated on compliance of medications, metabolic and movement d/o education appointment's, continue therapy discussion with patient about course of treatment and patient instructions. education on serotonin syndrome Discussed and educated pt regarding benzodiazepines are generally not intended for prolonged use and that use can cause tolerance, dependence, depression, and associated memory issues including dementias (this list is not exhaustive). Benzodiazepine use is generally not recommended concurrently with pain medications and/or other controlled substances educated on all medications, benefits, side effects and risk, and educated on depression, anxiety, and ADHD, mood d/o and educated on compliance of medications, metabolic and movement d/o education appointment is, continue therapy discussion with patient about course of treatment and patient instructions. education on serotonin syndrome SSRI/SNRI side effects discussed including but not limited to, gastric upset, nausea, vomiting, diarrhea and/or constipation, weight changes, sexual side effects including loss of libido, increased suicidal thoughts/behaviors in children and young adults, and serotonin syndrome. Medication Management and Follow-Up - Plan: - Schedule follow-up appointments every 1-3 months to monitor the patient's response to the medication regimen. - Reinforce the importance of avoiding recreational drug use due to potential neurotoxicity and interactions with prescribed medications. 04/15/2024 Primary insomnia (ICD-10 - F51.01) Insomnia: Care Instructions material was published depression- Celexa 20 mg daily Anxiety- has reported improvement wiht rx still have anxiety and worries - contibue therapy - schedule therapy weekly Celexa 20 mg daily, Xanax 0.5 mg three times a day Buspar 10 mg three times a day Panic- Vistaril 25 mg three times a day Xanax 0.5 mg three times a day Buspar 10 mg three times a day Primary insomnia- Trazodone 50 mg bedtime continue therapy http_s://www.[facility]. org/Qfssz-Tpcmka-O llness/Mental-Heal th-Conditions http_s://[facility] [employer].com/depression /dvw-oalndmysf-pzq gbstk-wu-fpmqekwcl n#treatments http__s://www.[facility] .nih.gov/health/to pics/mental-health -medications http__s://www.[facility] .org/About-Mental- Illness/Treatments /Eocrgy-Yoxsdf-Rkt ications educated on all medications, benefits, side effects and risk, and educated on depression, anxiety, and ADHD, mood d/o and educated on compliance of medications, metabolic and movement d/o education appointment's, continue therapy discussion with patient about course of treatment and patient instructions. education on serotonin syndrome Discussed and educated pt regarding benzodiazepines are generally not intended for prolonged use and that use can cause tolerance, dependence, depression, and associated memory issues including dementias (this list is not exhaustive). Benzodiazepine use is generally not recommended concurrently with pain medications and/or other controlled substances educated on all medications, benefits, side effects and risk, and educated on depression, anxiety, and ADHD, mood d/o and educated on compliance of medications, metabolic and movement d/o education appointment is, continue therapy discussion with patient about course of treatment and patient instructions. education on serotonin syndrome SSRI/SNRI side effects discussed including but not limited to, gastric upset, nausea, vomiting, diarrhea and/or constipation, weight changes, sexual side effects including loss of libido, increased suicidal thoughts/behaviors in children and young adults, and serotonin syndrome. Medication Management and Follow-Up - Plan: - Schedule follow-up appointments every 1-3 months to monitor the patient's response to the medication regimen. - Reinforce the importance of avoiding recreational drug use due to potential neurotoxicity and interactions with prescribed medications. 06/14/2024 Primary insomnia (ICD-10 - F51.01) Insomnia: Care Instructions material was published depression- Celexa 20 mg daily stable Anxiety- has reported improvement - continue therapy - schedule therapy Celexa 20 mg daily, Xanax 0.5 mg three times a day Buspar 10 mg twice a day- patient reported has been taking BID Panic- Vistaril 25 mg twice a day- patient reported been taking BID Xanax 0.5 mg three times a day Buspar 10 mg twice a day Primary insomnia- Trazodone 50 mg bedtime continue therapy http_s://www.[facility]. org/Fmopt-Xxvosw-M llness/Mental-Heal th-Conditions http_s://[facility] [employer].com/depression /ric-tmoyjmwbs-ezk vwoip-fg-qzacexkro n#treatments http__s://www.[facility] .nih.gov/health/to pics/mental-health -medications http__s://www.[facility] .org/About-Mental- Illness/Treatments /Mocyec-Mfflrv-Kus ications educated on all medications, benefits, side effects and risk, and educated on depression, anxiety, and ADHD, mood d/o and educated on compliance of medications, metabolic and movement d/o education appointment's, continue therapy discussion with patient about course of treatment and patient instructions. education on serotonin syndrome Discussed and educated pt regarding benzodiazepines are generally not intended for prolonged use and that use can cause tolerance, dependence, depression, and associated memory issues including dementias (this list is not exhaustive). Benzodiazepine use is generally not recommended concurrently with pain medications and/or other controlled substances educated on all medications, benefits, side effects and risk, and educated on depression, anxiety, and ADHD, mood d/o and educated on compliance of medications, metabolic and movement d/o education appointment is, continue therapy discussion with patient about course of treatment and patient instructions. education on serotonin syndrome SSRI/SNRI side effects discussed including but not limited to, gastric upset, nausea, vomiting, diarrhea and/or constipation, weight changes, sexual side effects including loss of libido, increased suicidal thoughts/behaviors in children and young adults, and serotonin syndrome. Medication Management and Follow-Up - Plan: - Schedule follow-up appointments every 1-3 months to monitor the patient's response to the medication regimen. - Reinforce the importance of avoiding recreational drug use due to potential neurotoxicity and interactions with prescribed medications. 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 org/Gspdy-Ezoybf-E llness/Mental-Heal th-Conditions http_s://[facility] [employer].com/depression /hgf-jdmtnukqq-wiq mrbbr-qi-tvakbiidf n#treatments http__s://www.[facility] .nih.gov/health/to pics/mental-health -medications http__s://www.[facility] .org/About-Mental- Illness/Treatments /Atxktv-Iecxtl-Iuq ications educated on all medications, benefits, side effects and risk, and educated on depression, anxiety, and ADHD, mood d/o and educated on compliance of medications, metabolic and movement d/o education appointment's, continue therapy discussion with patient about course of treatment and patient instructions. education on serotonin syndrome Discussed and educated pt regarding benzodiazepines are generally not intended for prolonged use and that use can cause tolerance, dependence, depression, and associated memory issues including dementias (this list is not exhaustive). Benzodiazepine use is generally not recommended concurrently with pain medications and/or other controlled substances educated on all medications, benefits, side effects and risk, and educated on depression, anxiety, and ADHD, mood d/o and educated on compliance of medications, metabolic and movement d/o education appointment is, continue therapy discussion with patient about course of treatment and patient instructions. education on serotonin syndrome SSRI/SNRI side effects discussed including but not limited to, gastric upset, nausea, vomiting, diarrhea and/or constipation, weight changes, sexual side effects including loss of libido, increased suicidal thoughts/behaviors in children and young adults, and serotonin syndrome. Medication Management and Follow-Up - Plan: - Schedule follow-up appointments every 1-3 months to monitor the patient's response to the medication regimen. - Reinforce the importance of avoiding recreational drug use due to potential neurotoxicity and interactions with prescribed medications. 04/15/2024 Other [facility] (current) drug therapy (ICD-10 - Z79.899) Medication Refill: Care Instructions material was published depression- Celexa 20 mg daily Anxiety- has reported improvement wiht rx still have anxiety and worries - contibue therapy - schedule therapy weekly Celexa 20 mg daily, Xanax 0.5 mg three times a day Buspar 10 mg three times a day Panic- Vistaril 25 mg three times a day Xanax 0.5 mg three times a day Buspar 10 mg three times a day Primary insomnia- Trazodone 50 mg bedtime continue therapy http_s://www.[facility]. org/Pwsje-Cmytsi-J llness/Mental-Heal th-Conditions http_s://psychcent InGameNow.com/depression /dsd-ynvrwbwua-tuf pbyna-zp-qxglihlpf n#treatments http__s://www.nimh .nih.gov/health/to pics/mental-health -medications http__s://www.[facility] .org/About-Mental- Illness/Treatments /Zfhkpr-Zctyoz-Gtu ications educated on all medications, benefits, side effects and risk, and educated on depression, anxiety, and ADHD, mood d/o and educated on compliance of medications, metabolic and movement d/o education appointment's, continue therapy discussion with patient about course of treatment and patient instructions. education on serotonin syndrome Discussed and educated pt regarding benzodiazepines are generally not intended for prolonged use and that use can cause tolerance, dependence, depression, and associated memory issues including dementias (this list is not exhaustive). Benzodiazepine use is generally not recommended concurrently with pain medications and/or other controlled substances educated on all medications, benefits, side effects and risk, and educated on depression, anxiety, and ADHD, mood d/o and educated on compliance of medications, metabolic and movement d/o education appointment is, continue therapy discussion with patient about course of treatment and patient instructions. education on serotonin syndrome SSRI/SNRI side effects discussed including but not limited to, gastric upset, nausea, vomiting, diarrhea and/or constipation, weight changes, sexual side effects including loss of libido, increased suicidal thoughts/behaviors in children and young adults, and serotonin syndrome. Medication Management and Follow-Up - Plan: - Schedule follow-up appointments every 1-3 months to monitor the patient's response to the medication regimen. - Reinforce the importance of avoiding recreational drug use due to potential neurotoxicity and interactions with prescribed medications. 04/01/2024 MDD (major depressive disorder), recurrent episode, moderate (ICD-10 - F33.1) depression- Celexa 20 mg daily Anxiety- increase anxiety with excessive worries- schedule therapy weekly Celexa 20 mg daily, Xanax 0.5 mg three times a day Buspar 10 mg three times a day Panic- ADD Vistaril 25 mg three times a day Xanax 0.5 mg three times a day Buspar 10 mg three times a day Primary insomnia- Trazodone 50 mg bedtime continue therapy http_s://www.[facility]. org/Kkknh-Rniuzm-J llness/Mental-Heal th-Conditions http_s://psychcent InGameNow.com/depression /fvk-mimvkvyvu-kwy cbbpb-pt-drqpxhzxv n#treatments http__s://www.nimh .nih.gov/health/to pics/mental-health -medications http__s://www.[facility] .org/About-Mental- Illness/Treatments /Xmraqv-Kolqfw-Ekj ications educated on all medications, benefits, side effects and risk, and educated on depression, anxiety, and ADHD, mood d/o and educated on compliance of medications, metabolic and movement d/o education appointment's, continue therapy discussion with patient about course of treatment and patient instructions. education on serotonin syndrome Discussed and educated pt regarding benzodiazepines are generally not intended for prolonged use and that use can cause tolerance, dependence, depression, and associated memory issues including dementias (this list is not exhaustive). Benzodiazepine use is generally not recommended concurrently with pain medications and/or other controlled substances educated on all medications, benefits, side effects and risk, and educated on depression, anxiety, and ADHD, mood d/o and educated on compliance of medications, metabolic and movement d/o education appointment is, continue therapy discussion with patient about course of treatment and patient instructions. education on serotonin syndrome SSRI/SNRI side effects discussed including but not limited to, gastric upset, nausea, vomiting, diarrhea and/or constipation, weight changes, sexual side effects including loss of libido, increased suicidal thoughts/behaviors in children and young adults, and serotonin syndrome. Medication Management and Follow-Up - Plan: - Schedule follow-up appointments every 1-3 months to monitor the patient's response to the medication regimen. - Reinforce the importance of avoiding recreational drug use due to potential neurotoxicity and interactions with prescribed medications. 04/15/2024 MDD (major depressive disorder), recurrent episode, moderate (ICD-10 - F33.1) depression- Celexa 20 mg daily Anxiety- has reported improvement wiht rx still have anxiety and worries - contibue therapy - schedule therapy weekly Celexa 20 mg daily, Xanax 0.5 mg three times a day Buspar 10 mg three times a day Panic- Vistaril 25 mg three times a day Xanax 0.5 mg three times a day Buspar 10 mg three times a day Primary insomnia- Trazodone 50 mg bedtime continue therapy http_s://www.[facility]. org/Liofx-Oecnkh-K llness/Mental-Heal th-Conditions http_s://psychcent InGameNow.com/depression /pya-ftlyjjbxg-dyl sihfa-bv-jdvizjiju n#treatments http__s://www.nim .nih.gov/health/to pics/mental-health -medications http__s://www.[facility] .org/About-Mental- Illness/Treatments /Dbezuu-Vyteci-Pzn ications educated on all medications, benefits, side effects and risk, and educated on depression, anxiety, and ADHD, mood d/o and educated on compliance of medications, metabolic and movement d/o education appointment's, continue therapy discussion with patient about course of treatment and patient instructions. education on serotonin syndrome Discussed and educated pt regarding benzodiazepines are generally not intended for prolonged use and that use can cause tolerance, dependence, depression, and associated memory issues including dementias (this list is not exhaustive). Benzodiazepine use is generally not recommended concurrently with pain medications and/or other controlled substances educated on all medications, benefits, side effects and risk, and educated on depression, anxiety, and ADHD, mood d/o and educated on compliance of medications, metabolic and movement d/o education appointment is, continue therapy discussion with patient about course of treatment and patient instructions. education on serotonin syndrome SSRI/SNRI side effects discussed including but not limited to, gastric upset, nausea, vomiting, diarrhea and/or constipation, weight changes, sexual side effects including loss of libido, increased suicidal thoughts/behaviors in children and young adults, and serotonin syndrome. Medication Management and Follow-Up - Plan: - Schedule follow-up appointments every 1-3 months to monitor the patient's response to the medication regimen. - Reinforce the importance of avoiding recreational drug use due to potential neurotoxicity and interactions with prescribed medications. 06/14/2024 MDD (major depressive disorder), recurrent episode, moderate (ICD-10 - F33.1) depression- Celexa 20 mg daily stable Anxiety- has reported improvement - continue therapy - schedule therapy Celexa 20 mg daily, Xanax 0.5 mg three times a day Buspar 10 mg twice a day- patient reported has been taking BID Panic- Vistaril 25 mg twice a day- patient reported been taking BID Xanax 0.5 mg three times a day Buspar 10 mg twice a day Primary insomnia- Trazodone 50 mg bedtime continue therapy http_s://www.kirk. org/Ldzkh-Olzoql-W llness/Mental-Heal th-Conditions http_s://psychcent InGameNow.com/depression /uqt-xqxfalgtp-znx ywsfl-ys-byrhjumqj n#treatments http__s://www.[facility] .nih.gov/health/to pics/mental-health -medications http__s://www.[facility] .org/About-Mental- Illness/Treatments /Kwvznh-Bidoeu-Obk ications educated on all medications, benefits, side effects and risk, and educated on depression, anxiety, and ADHD, mood d/o and educated on compliance of medications, metabolic and movement d/o education appointment's, continue therapy discussion with patient about course of treatment and patient instructions. education on serotonin syndrome Discussed and educated pt regarding benzodiazepines are generally not intended for prolonged use and that use can cause tolerance, dependence, depression, and associated memory issues including dementias (this list is not exhaustive). Benzodiazepine use is generally not recommended concurrently with pain medications and/or other controlled substances educated on all medications, benefits, side effects and risk, and educated on depression, anxiety, and ADHD, mood d/o and educated on compliance of medications, metabolic and movement d/o education appointment is, continue therapy discussion with patient about course of treatment and patient instructions. education on serotonin syndrome SSRI/SNRI side effects discussed including but not limited to, gastric upset, nausea, vomiting, diarrhea and/or constipation, weight changes, sexual side effects including loss of libido, increased suicidal thoughts/behaviors in children and young adults, and serotonin syndrome. Medication Management and Follow-Up - Plan: - Schedule follow-up appointments every 1-3 months to monitor the patient's response to the medication regimen. - Reinforce the importance of avoiding recreational drug use due to potential neurotoxicity and interactions with prescribed medications. 03/24/2024 Other Buspirone Oral Tablet (BUSPIRONE - ORAL) material was published, Alprazolam Oral Tablet (ALPRAZOLAM - ORAL) material was published, Trazodone Oral Tablet (TRAZODONE - ORAL) material was published, Citalopram Oral Tablet (CITALOPRAM - ORAL) [FDB] material was published Anxiety- increase anxiety with excessive worries Celexa 20 mg daily, will increase Xanax 0.5 mg three times a day Buspar 10 mg three times a day Panic- Xanax 0.5 mg three times a day Buspar 10 mg three times a day Primary insomnia- Trazodone 50 mg bedtime continue therapy http_s://www.kirk. org/Ajolh-Ohieyy-V llness/Mental-Heal th-Conditions http_s://psychcent InGameNow.com/depression /mgm-squpwsevz-qja mpztm-zy-zwgdgtwwj n#treatments http__s://www.nimh .nih.gov/health/to pics/mental-health -medications http__s://www.[facility]irk .org/About-Mental- Illness/Treatments /Lzqvft-Pvpior-Xgl ications educated on all medications, benefits, side effects and risk, and educated on depression, anxiety, and ADHD, mood d/o and educated on compliance of medications, metabolic and movement d/o education appointment's, continue therapy discussion with patient about course of treatment and patient instructions. education on serotonin syndrome Discussed and educated pt regarding benzodiazepines are generally not intended for prolonged use and that use can cause tolerance, dependence, depression, and associated memory issues including dementias (this list is not exhaustive). Benzodiazepine use is generally not recommended concurrently with pain medications and/or other controlled substances educated on all medications, benefits, side effects and risk, and educated on depression, anxiety, and ADHD, mood d/o and educated on compliance of medications, metabolic and movement d/o education appointment is, continue therapy discussion with patient about course of treatment and patient instructions. education on serotonin syndrome SSRI/SNRI side effects discussed including but not limited to, gastric upset, nausea, vomiting, diarrhea and/or constipation, weight changes, sexual side effects including loss of libido, increased suicidal thoughts/behaviors in children and young adults, and serotonin syndrome. Medication Management and Follow-Up - Plan: - Schedule follow-up appointments every 1-3 months to monitor the patient's response to the medication regimen. - Reinforce the importance of avoiding recreational drug use due to potential neurotoxicity and interactions with prescribed medications. Plan Of Treatment Next Appt Details Provider Name:Cassandra Pollard, 11/01/2024 11:00:00 AM, [address], [address], [place], [address], Provider Name:Lizzette Leon , 11/14/2024 11:30:00 AM, [address], [address], [place], [address], Insurance Providers Payer Name Payer Address Payer Phone Subscriber Number Group Number Insured Name Patient Relationship to Insured Coverage Start Date Coverage End Date Medicare-[place] Medicare [address] [place] [phone] [id number] JESUS FU Self - patient is the insured [email or web address] Medicare Supplement [address] [address] [place] [address] [id number] TANK JESUS Self - patient is the insured Medical (General) History Medical History History ICD Code Problems: Generalized anxiety disorder Long-term drug therapy Panic disorder without agoraphobia with moderate panic attacks Primary insomnia , Surgical History Surgery Date(Month/Year) Any surgical history 10/25/1997 Tonsilectomy/adenoids 12/19/1967 Removal of gallbladder (38322) 5
== END 2024-10-26 11:07 | disposition home or self-care (01) ==
PROVIDERS: PCP Nurse Practitioner; Visit Provider Urology
DX: N20.0 Calculus of kidney (principal)
CPT/HCPCS: 74018

== ENCOUNTER 2024-11-15 10:18 | Emergency (ER) | payer OTHER, MEDICARE, SELFPAY ==
--- NOTE | ~2024-11-15 | XR_ITS ---
XR wrist RT min 3V Ordering provider: Teresa Cruz APRN History: . RT wrist pain yesterday jammed wrist into dash of car . Comparison: None. FINDINGS: BONES: No acute fracture or dislocation. No definite scaphoid fracture. Cystic area seen in the scap hoid bone. JOINT SPACES: Normal. SOFT TISSUES: Normal. IMPRESSION: No acute osseous abnormality right wrist. Reviewed, dictated and finalized at location A.
[2024-11-15 10:27] VITALS: BP 127/91; PULSE 97; RESP 16; TEMP 36.7; O2SAT 99
--- NOTE | 2024-11-15 11:10 | ED.UPPEXIN ---
HPI - Extremity Injury (Upper) General Chief Complaint: Extremity Injury, Upper Stated Complaint: right wrist injury Time Seen by Provider: 11/15/24 11:30 Source: patient Mode of arrival: ambulatory Limitations: no limitations Related Data Home Medications ?Medication ?Instructions ?Recorded ?Confirmed ?Last Taken ?Type alprazolam 0.5 mg tablet (Xanax) 0.5 mg PO TID 05/03/19 08/18/24 05/06/24 06:00 History aspirin 81 mg tablet,delayed 81 mg PO DAILY 05/03/19 08/18/24 04/28/24 History release (Adult Low Dose Aspirin) buspirone 10 mg tablet 10 mg PO TID 05/03/19 08/18/24 05/06/24 06:00 History citalopram 20 mg tablet (Celexa) 20 mg PO QAM 05/03/19 08/18/24 05/06/24 History 0600 niacin 500 mg tablet 500 mg PO DAILY 05/03/19 08/18/24 04/28/24 History omega 4-vej-gyh-fish oil 1,000 mg 1 cap PO BID 05/03/19 08/18/24 04/28/24 History (120 mg-180 mg) capsule (Fish Oil) trazodone 50 mg tablet 50 mg PO HS PRN Insomnia 11/08/20 08/18/24 02/03/21 History cholecalciferol (vitamin D3) 25 50 mcg PO BID 12/09/22 08/18/24 04/28/24 History mcg (1,000 unit) capsule hydroxyzine HCl 25 mg tablet 25 mg PO TID 04/25/24 08/18/24 Unknown History potassium citrate 10 mEq (1,080 10 meq PO BID 04/25/24 08/18/24 04/28/24 History mg) tablet,extended release Allergies Allergy/AdvReac Type Severity Reaction Status Date / Time erythromycin base Allergy Mild Unknown Verified 11/15/24 10:20 Review of Systems Review of Systems: CONSTITUTIONAL: Denies body aches, fever, chills EYES: Denies visual changes ENT: Denies rhinorrhea, congestion CARDIOVASCULAR: Denies chest pain, palpitations, or edema. RESPIRATORY: Denies cough or dyspnea. SKIN: Denies rash, itching, or wounds. MUSCULOSKELETAL: reports back pain, joint pain, or myalgia. NEUROLOGIC: Denies headache, numbness, tingling, or weakness. All systems reviewed & are unremarkable except as noted in HPI and below PMFSH Past Medical History Medical History (Updated 11/15/24 @ 11:52 by Teresa Cruz APRN) BMI 25.0-25.9,adult Hernia Viral illness Anxiety Bilateral renal cysts Elevated PSA Impotence of organic origin Kidney stones Mixed hyperlipidemia On intermission coordinator drug therapy Testicular hypofunction Vitamin D deficiency Surgical History Surgical History History of lithotripsy several times History of tonsillectomy History of hernia surgery LT inguinal History of cholecystectomy Family History Family History Father , Car accident Family history of diabetes mellitus in first degree relative Family history of heart disease in male family member before age 55 Sibling Family history of diabetes mellitus in first degree relative Mother , Multiple myeloma Family history of heart disease in male family member before age 55 Other Diabetes mellitus Family history of cardiovascular disease Family history of malignant neoplasm Hypertension Social History Social History (Updated 08/18/24 @ 10:40 by CHAY Blackburn) Smoking status: Never smoker Second hand tobacco smoke exposure: Yes Alcohol intake: current Alcohol use details: VERY RARE - STATES MAYBE COUPLE TIMES A YEAR Substance use: never Substance use type: does not use Do You Feel Safe in your Home?: Yes Lack of Transportation: No Lack of Food: Never True Current Housing: I Have Housing Concerned About Future Housing: No Difficulty Paying Gas/Electric Bills: No Difficulty Paying for Meds: No Currently Unemployed: No Education: Trade/Vocational Certificate Difficulty w/ Childcare or Family Care: No Living arrangements: with family Additional living arrangements comments: Occupation/Education: retired 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 Please see nursing chart for further information. There is no relevant family history pertinent to the presenting complaint Exam Narrative: GENERAL: Well-appearing CHEST: Speaks in full sentences. No respiratory distress. HEART: Regular rate and rhythm. Normal and equal peripheral pulses. EXTREMITIES: Right hand and wrist has normal strength and sensation, normal range of motion with flexion/extension/rotation of wrist, but endorses mild pain with movement. ecchymosis noted to distal ulna purple in color; ecchymosis to dorsal wrist with yellow color, No point tenderness. No open wounds, or obvious deformity; alignment normal, pulse palpable and equal bilaterally, skin warm, dry, pink. Capillary refill less than 3 seconds. SKIN: Warm, dry NEURO: Alert and oriented x3. PSYCH: Normal mood and affect Course Course Emergency Course: Patient is aware of diagnosis, understands and agrees to treatment plan. Anticipatory guidance given. Patient agrees to follow-up as directed and is aware of reasons to seek care at the emergency department. Portions of this record may have been created with voice recognition software Level of Care: Express Care Visit Vital Signs Vital signs: Vital Signs Temperature 98.0 F 11/15/24 10:27 Pulse Rate 97 11/15/24 10:27 Respiratory Rate 16 11/15/24 10:27 Blood Pressure 127/91 H 11/15/24 10:27 Pulse Oximetry 99 11/15/24 10:27 Oxygen Delivery Room Air 11/15/24 10:27 Temperature 98.0 F 11/15/24 10:27 Pulse Rate 97 11/15/24 10:27 Respiratory Rate 16 11/15/24 10:27 Blood Pressure 127/91 H 11/15/24 10:27 Pulse Oximetry 99 11/15/24 10:27 Oxygen Delivery Room Air 11/15/24 10:27 Reviewed MDM - Extremity Injury (Upper) MDM Narrative Medical decision making narrative: Discussed physical exam findings and x-ray. Patient declined Remy wrap.. Advised supportive measures and signs/symptoms to go to the ER. Pt is appropriate for outpt treatment and f/u. Differential Diagnosis Differential diagnosis: Likely sprain and strain of wrist and fracture of wrist Imaging Data Radiologist's impression: Patient: Kvng Pino : 1955 MR#: [id number] Age: 69 Acct:[id number] Loc: [facility] ADM Date: 11/15/24Attending Dr: Ordering Physician: Teresa Cruz APRN Date of Service: 11/15/24 Procedure(s): XR wrist RT min 3V Accession Number(s): [id number] cc: Harjeet Mcleod APN; Teresa Cruz APRN~ XR wrist RT min 3V Ordering provider: Teresa Cruz APRN History: . RT wrist pain yesterday jammed wrist into dash of car . Comparison: None. FINDINGS: BONES: No acute fracture or dislocation. No definite scaphoid fracture. Cystic area seen in the scaphoid bone. JOINT SPACES: Normal. SOFT TISSUES: Normal. IMPRESSION: No acute osseous abnormality right wrist. Discharge Plan Discharge Clinical Impression: Sprain and strain of wrist Patient Disposition: Home Condition: Stable Instructions: Wrist Sprain (ED) Additional Instructions: Rest and elevate the right hand; activity as tolerated (avoid lifting, pushing, pulling etc until pain is resolved). Apply ice 15-20 minute intervals several times a day Keep it wrapped with REMY or use a soft wrist splint Motrin 800mg every 8 hours x5 days, alternate with Tylenol 1000mg every 8 hours as needed Follow up with your primary care provider as needed Go to the ER for worsening symptoms or concerns Patient Language: Tamazight Prescriptions: No Action niacin 500 mg tablet 500 mg PO DAILY omega 1-ywr-bwf-fish oil [Fish Oil] 1,000 mg (120 mg-180 mg) capsule 1 cap PO BID aspirin [Adult Low Dose Aspirin] 81 mg tablet,delayed release (DR/EC) 81 mg PO DAILY alprazolam [Xanax] 0.5 mg tablet 0.5 mg PO TID citalopram [Celexa] 20 mg tablet 20 mg PO QAM buspirone 10 mg tablet 10 mg PO TID trazodone 50 mg tablet 50 mg PO HS PRN (Reason: Insomnia) atorvastatin 20 mg tablet 20 mg PO HS Qty: 90 1RF Rx Instructions: TAKE 1 TABLET BY MOUTH DAILY hydroxyzine HCl 25 mg tablet 25 mg PO TID potassium citrate 10 mEq (1,080 mg) tablet extended release 10 meq PO BID cholecalciferol (vitamin D3) 25 mcg (1,000 unit) capsule 50 mcg PO BID Follow-up/Referrals: Harjeet Mcleod APRN [Primary Care Provider] - Time of Disposition: 11:52
== END 2024-11-15 12:00 | disposition home or self-care (01) ==
PROVIDERS: Emergency Provider Nurse Practitioner Family; PCP Nurse Practitioner
DX: S63.501A Unspecified sprain of right wrist, initial encounter (principal); S66.911A Strain of unspecified muscle, fascia and tendon at wrist and hand level, right hand, initial encounter; X58.XXXA Exposure to other specified factors, initial encounter; E78.2 Mixed hyperlipidemia; E55.9 Vitamin D deficiency, unspecified; F41.9 Anxiety disorder, unspecified
CPT/HCPCS: 73110; 99213; G0463

== ENCOUNTER 2025-04-04 14:13 | Outpatient (CLI) | payer MEDICARE, SELFPAY ==
--- NOTE | ~2025-04-04 | XR_ITS ---
EXAMINATION: XR shoulder LT min 2V, 04/04/2025 14:20 CDT HISTORY: CHRONIC L SHOULDER PAIN COMPARISON: No comparisons available. Findings: No acute fracture or malalignment. No significant degenerative changes. Soft tissues unremarkable. Impression: No acute fracture or malalignment. Reviewed, dictated and finalized at location P. Impression: No acute fracture or malalignment.
== END 2025-04-04 14:14 | disposition home or self-care (01) ==
PROVIDERS: PCP Nurse Practitioner; Visit Provider Nurse Practitioner
DX: M25.512 Pain in left shoulder (principal); G89.29 Other chronic pain
CPT/HCPCS: 73030

== ENCOUNTER 2025-04-18 13:46 | Outpatient (CLI) | payer MEDICARE, SELFPAY ==
--- NOTE | ~2025-04-18 | XR_ITS ---
EXAMINATION: XR abdomen/kub 1V, 04/18/2025 14:05 CDT HISTORY: CALCULUS OF KIDNEY BILATERAL COMPARISON: No comparisons available. Technique: 3 view. Findings: Bowel gas pattern unremarkable. No obstruction. Bilateral renal calculi the largest right kidney lower pole 3 mm, largest left kidney superior pole 10 x 6 mm. No acute osseous abnormality. Impression: 1. Bilateral renal calculi Reviewed, dictated and finalized at location P. Impression: 1. Bilateral renal calculi
--- OUTSIDE RECORDS SUMMARY | 2025-04-18 15:53 | XMS_ITS | Patient Health Record ---
Author Organization [facility] Address [address] [place] [address] Care Team Providers Care Safety And Skill Based Pay Manager Name Role Phone Harsha SAHU, Harjeet Primary Care Provider UnavailLizzette Waldron Unavailable [phone] Cassandra Pollard Unavailable [phone] Allergies No Known Allergies Results Component Value Reference Range Notes UDT Reviewed date:11/14/2024 11:48:51 AM Interpretation: Performing Lab: Notes/Report: THC N 0 - 50 ng/ml Cocaine N 0 - 300 ng/ml Amphetamine N 0 - 1000 ng/ml Buprenorphine (BUP) N 0 - 10 ng/ml Secobarbital (Bar) N 0 - 300 ng/ml Oxazepam (BZO) P 0 - 300 ng/ml 3-osbnjwlric-6,9-bzcfqrcy-6,3-diphenylpyrrolidine (VAN P) N 0 - 300 ng/ml Methamphetamine (MET) N 0 - 1000 ng/ml Methylenedioxymethamphetamine (MDMA) N 0 - 500 ng/ml Morphine (MOP 300/AGU7195) N 0 - 300 ng/ml Methadone (MTD) N 0 - 300 ng/ml Phencyclidine (PCP) N 0 - 25 ng/ml Nortriptyline (TCA) N 0 - 1000 ng/ml Oxycodone N 0 - 300 ng/ml Reason For Referral No Information Medications Medication SIG (Take, Route, Frequency, Duration) Notes Start Date End Date Status ALPRAZolam 0.5 MG Tablet 1 tablet Oral t hree times a day; Duration: 30 days 11/14/2024 Active busPIRone HCl 10 MG Tablet 1 tablet Oral Twice a day; Duration: 90 days Active Atorvastatin Calcium 20 MG Tablet Oral 09/25/2023 Active hydrOXYzine HCl 25 MG Tablet 1 tablet Orally twice a day; Duration: 90 days As needed Active Citalopram Hydrobromide 20 MG Tablet 1 tablet Oral Once a day; Duration: 90 days Active traZODone HCl 50 MG Tablet 1 tablet at b edtime Oral at bedtime; Duration: 90 days Active Potassium Bicarb-Citric Acid Active Immunizations Vaccine Route Administration Date Status [...] unspecified formulation Unknown 07/07/2023 A dministered Novel [id number], preservative free Unknown 05/08/2018 Administered Novel [id number], preservative free Unknown 03/29/2020 Administered Pfizer Biontech [...] History Observation Description Sex Assigned At Male Social History Miscellaneous: Social Info Question Answer Notes Advance Care Planning Are you your own decision-maker Yes Do you have Power of Assembly Repairer for Health or [facility]? Yes Sexual History: Social Info Question Answer Notes Sexual History Had sex in the past 12 months (vaginal, oral, or anal)? Yes with Women only Household: Social Info Question Answer Notes Household Marital status: Number of adults in household: 2 Level of education: retired Any household tobacco use? No Drug/Alcohol: Social Info Question Answer Notes Drugs Have you used drugs other than those for medical reasons in the past 12 months? No AUDIT-C (Standard) Did you have a drink containing alcohol in the past year? No Points 0 Interpretation Negative Caffeine Intake: none Tobacco Use: Social Info Question Answer Notes Tobacco Control (Standard) Tobacco use: Nonsmoker Additional Findings: Tobacco non-user Current no nsmoker Additional Details Category Social Info Options Details Migrated Social History Migrated Social History Alcohol Intake: Occasional 09/27/2018,Tobacco Years: Never smoker 04/09/2018,Smoking Status: 0 08/25/2023 Drug/Alcohol: Do you smoke marijuana? Den ies Do you drink alcohol? No Problems Problem Type SNOMED Code ICD Code Onset Dates Problem Status W/U Status Risk Notes Problem Generalized anxiety disorder (26841881) Generalized anxiety disorder (F41.1) 10/21/19 Active confirmed Problem Primary insomnia (8204494) Primary insomnia (F51.01) 09/25/19 Active confirmed Problem Screening for cardiovascular system disease (662163555) Encounter for screening for cardiovascular disorders (Z13.6) Active confirmed Problem Dietary management surveillance (657832613) Dietary counseling and surveillance (Z71.3) Active confirmed Problem Long-term current use of drug therapy (422141509) Other superintendent terminal (current) drug therapy (Z79.899) 09/25/19 Active confirmed Problem Depression Screening (682732630) Encounter for screening for depression (Z13.31) Active confirmed Problem Panic disorder (774696773) Panic disorder [episodic paroxysmal anxiety] without agoraphobia (F41.0) 10/21/19 Active confirmed Problem Moderate recurrent major depression (90622236) MDD (major depressive disorder), recurrent episode, moderate (F33.1) Active confirmed Problem Mild recurrent major depression (35960020) MDD (major depressive disorder), recurrent episode, mild (F33.0) Active confirmed Problem Depression screening negative (954996584121399) Negative depression screening (Z13.31) Active confirmed Vital Signs Heart Rate 91 /min 11/14/2024 Height-cm 170.18 cm 11/14/2024 Blood pressure diastolic 99 mm Hg 11/14/2024 Weight-kg 71.67 kg 11/14/2024 Height 67.00 in 11/14/2024 Blood pressure systolic 143 mm Hg 11/14/2024 Weight 158 lbs 11/14/2024 BMI 24.74 kg/m2 11/14/2024 Encounters En[facility] [place] [id number] [facility] [address] [place] [address] 04/19/2024 Cassandra Hemann Generalized anxiety disorder F41.1 ; Panic disorder [episodic paroxysmal anxiety] without agoraphobia F41.0 and MDD (major depressive disorder), recurrent episode, moderate F33.1 [place] [address] [facility] [address] [place] [address] 04/28/2024 Cassandra Hemann Generalized anxiety disorder F41.1 and MDD (major depressive disorder), recurrent episode, moderate F33.1 [place] [address] [address] 05/05/2024 Cassandra Hemann Generalized anxiety disorder F41.1 and MDD (major depressive disorder), recurrent episode, moderate F33.1 [facility] [address] [address] 05/18/2024 Cassandra Hemann Generalized anxiety disorder F41.1 and MDD (major depressive disorder), recurrent episode, moderate F33.1 [facility] [place] [address] [address] 06/07/2024 Cassandra Hemann Generalized anxiety disorder F41.1 and MDD (major depressive disorder), recurrent episode, moderate F33.1 [facility] [place] [address] [address] 06/14/2024 Lizzette Leon Generalized anxiety disorder F41.1 ; Panic disorder [episodic paroxysmal anxiety] without agoraphobia F41.0 ; Primary insomnia F51.01 ; Other superintendent terminal (current) drug therapy Z79.899 and MDD (major depressive disorder), recurrent episode, moderate F33.1 [facility] [place] [address] [address] 07/07/2024 Cassandra Hemann Generalized anxiety disorder F41.1 and MDD (major depressive disorder), recurrent episode, moderate F33.1 [facility] [place] [address] [address] 08/10/2024 Cassandra Hemann Generalized anxiety disorder F41.1 and MDD (major depressive disorder), recurrent episode, moderate F33.1 [facility] [address] [facility] [address] [place] [address] 11/01/2024 Cassandra Hemann Generalized anxiety disorder F41.1 and MDD (major depressive disorder), recurrent episode, moderate F33.1 [facility] [address] [facility] [address] [place] [address] 11/14/2024 Lizzette Leon Negative depression screening Z13.31 ; Generalized anxiety disorder F41.1 ; Encounter for screening for cardiovascular disorders Z13.6 ; Dietary counseling and surveillance Z71.3 ; Encounter for screening for depression Z13.31 ; Panic disorder [episodic paroxysmal anxiety] without agoraphobia F41.0 ; Primary insomnia F51.01 ; Other superintendent terminal (current) drug therapy Z79.899 and MDD (major depressive disorder), recurrent episode, mild F33.0 [facility] [place] [address] [facility] [address] [place] [address] 12/27/2024 Cassandra Hemann Generalized anxiety disorder F41.1 and MDD (major depressive disorder), recurrent episode, moderate F33.1 [facility] [address] [facility] [address] [place] [address] 02/27/2025 Cassandra Hemann Generalized anxiety disorder F41.1 and MDD (major depressive disorder), recurrent episode, moderate F33.1 [place] [address] [facility] [address] [place] [address] 08/31/2024 Lizzette Leon Generalized anxiety disorder F41.1 Assessments Encounter Date Diagnosis (ICD Code) Assessment Notes Treatment Notes Treatment Clinical Notes Section Notes 04/28/2024 Generalized anxiety disorder (ICD-10 - F41.1) [...] insomnia- Trazodone 50 mg bedtime continue therapy http_s://www.kirk .org/About-Mental -Illness/Mental-H ealth-Conditions http_s://psychGlenRose Instruments.[employer]/depressi on/the-cognitive- lzvpbsjc-oe-xpjns ssion#treatments http__s://www.nim .nih.gov/health/ topics/mental-hea lth-medications http__s://www.nam i.org/About-Menta l-Illness/Treatme nts/Mental-Health -Medications educated on all medications, benefits, side effects [...] effects including loss of libido, increased suicidal thoughts/behavior s in children and young adults, and serotonin syndrome. Medication Management and Follow-Up - Plan: - Schedule follow-up appointments every 1-3 months to monitor the patient's response to the medication regimen. - Reinforce the importance of avoiding recreational drug use due to potential neurotoxicity and interactions with prescribed medications. 08/10/2024 Generalized anxiety disorder (ICD-10 - F41.1) 08/10/2024 MDD (major depressive disorder), recurrent episode, moderate (ICD-10 - F33.1) 11/14/2024 Generalized anxiety disorder (ICD-10 - F41.1) Learning About Generalized Anxiety Disorder material was published, Generalized Anxiety Disorder: Care Instructions material was published, Learning About Anxiety Disorders material was published 1. depression- Celexa 20 mg daily stable 2. Anxiety- has reported improvement - continue therapy Celexa 20 mg daily, Xanax 0.5 mg three times a day Buspar 10 mg twice a day- 3. Panic- Vistaril 25 mg twice a day- patient reported been taking PRN Xanax 0.5 mg three times a day Buspar 10 mg twice a day 4. Primary insomnia- Trazodone 50 mg bedtime continue therapy http_s://www.kirk .org/About-Mental -Illness/Mental-H ealth-Conditions http_s://psychcen KoolLearningl.com/depressi on/the-cognitive- ancjubhj-el-mxxzt ssion#treatments http__s://www.nim h.nih.gov/health/ topics/mental-hea lth-medications http__s://www.nam i.org/About-Menta l-Illness/Treatme nts/Mental-Health -Medications educated on all medications, benefits, side effects [...] effects including loss of libido, increased suicidal thoughts/behavior s in children and young adults, and serotonin syndrome. Medication Management and Follow-Up - Plan: - Schedule follow-up appointments every 1-3 months to monitor the patient's response to the medication regimen. - Reinforce the importance of avoiding recreational drug use due to potential neurotoxicity and interactions with prescribed medications. 11/01/2024 Generalized anxiety disorder (ICD-10 - F41.1) 11/01/2024 MDD (major depressive disorder), recurrent episode, moderate (ICD-10 - F33.1) 08/31/2024 Generalized anxiety disorder (ICD-10 - F41.1) 07/07/2024 Generalized anxiety disorder (ICD-10 - F41.1) 07/07/2024 MDD (major depressive disorder), recurrent episode, moderate (ICD-10 - F33.1) 05/05/2024 Generalized anxiety disorder (ICD-10 - F41.1) 05/05/2024 MDD (major depressive disorder), recurrent episode, moderate (ICD-10 - F33.1) 04/19/2024 Generalized anxiety disorder (ICD-10 - F41.1) 04/19/2024 Panic disorder [episodic paroxysmal anxiety] without agoraphobia (ICD-10 - F41.0) 11/14/2024 Negative depression screening (ICD-10 - Z13.31) 1. depression- Celexa 20 mg daily stable 2. Anxiety- has reported improvement - continue therapy Celexa 20 mg daily, Xanax 0.5 mg three times a day Buspar 10 mg twice a day- 3. Panic- Vistaril 25 mg twice a day- patient reported been taking PRN Xanax 0.5 mg three times a day Buspar 10 mg twice a day 4. Primary insomnia- Trazodone 50 mg bedtime continue therapy http_s://www.kirk .org/About-Mental -Illness/Mental-H ealth-Conditions http_s://psychcen tral.com/depressi on/the-cognitive- nudhrroi-yg-regox ssion#treatments http__s://www.nim h.nih.gov/health/ topics/mental-hea [facility]-medications http__s://www.nam i.org/About-Menta l-Illness/Treatme nts/Mental-Health -Medications educated on all medications, benefits, side effects [...] effects including loss of libido, increased suicidal thoughts/behavior s in children and young adults, and serotonin syndrome. Medication Management and Follow-Up - Plan: - Schedule follow-up appointments every 1-3 months to monitor the patient's response to the medication regimen. - Reinforce the importance of avoiding recreational drug use due to potential neurotoxicity and interactions with prescribed medications. 12/27/2024 Generalized anxiety disorder (ICD-10 - F41.1) 12/27/2024 MDD (major depressive disorder), recurrent episode, moderate (ICD-10 - F33.1) 02/27/2025 Generalized anxiety disorder (ICD-10 - F41.1) 02/27/2025 MDD (major depressive disorder), recurrent episode, moderate (ICD-10 - F33.1) 04/19/2024 MDD (major depressive disorder), recurrent episode, moderate (ICD-10 - F33.1) 11/14/2024 Encounter for screening for cardiovascular disorders (ICD-10 - Z13.6) 1. depression- Celexa 20 mg daily stable 2. Anxiety- has reported improvement - continue therapy Celexa 20 mg daily, Xanax 0.5 mg three times a day Buspar 10 mg twice a day- 3. Panic- Vistaril 25 mg twice a day- patient reported been taking PRN Xanax 0.5 mg three times a day Buspar 10 mg twice a day 4. Primary insomnia- Trazodone 50 mg bedtime continue therapy http_s://www.kirk .org/About-Mental -Illness/Mental-H ealth-Conditions http_s://psychcen eBiosciencecom/depressi on/the-cognitive- bvwhjknl-cw-hkypp ssion#treatments http__s://www.[facility].nih.gov/health/ topics/mental-hea lth-medications http__s://www.nam i.org/About-Menta l-Illness/Treatme nts/Mental-Health -Medications educated on all medications, benefits, side effects [...] effects including loss of libido, increased suicidal thoughts/behavior s in children and young adults, and serotonin syndrome. Medication Management and Follow-Up - Plan: - Schedule follow-up appointments every 1-3 months to monitor the patient's response to the medication regimen. - Reinforce the importance of avoiding recreational drug use due to potential neurotoxicity and interactions with prescribed medications. 06/14/2024 Panic disorder [episodic paroxysmal anxiety] without [...] insomnia- Trazodone 50 mg bedtime continue therapy http_s://www.kirk .org/About-Mental -Illness/Mental-H ealth-Conditions http_s://psychHashplex/depressi on/the-cognitive- vregpjko-mk-nfjgu ssion#treatments http__s://www.[facility].nih.gov/health/ topics/mental-hea lth-medications http__s://www.nam i.org/About-Menta l-Illness/Treatme nts/Mental-Health -Medications educated on all medications, benefits, side effects [...] effects including loss of libido, increased suicidal thoughts/behavior s in children and young adults, and serotonin [...] insomnia- Trazodone 50 mg bedtime continue therapy http_s://www.kirk .org/About-Mental -Illness/Mental-H ealth-Conditions http_s://psychHashplex/depressi on/the-cognitive- rcbnxnah-kb-yruhm ssion#treatments http__s://www.nim h.nih.gov/health/ topics/mental-hea lth-medications http__s://www.nam i.org/About-Menta l-Illness/Treatme nts/Mental-Health -Medications educated on all medications, benefits, side effects [...] effects including loss of libido, increased suicidal thoughts/behavior s in children and young adults, and serotonin syndrome. Medication Management and Follow-Up - Plan: - Schedule follow-up appointments every 1-3 months to monitor the patient's response to the medication regimen. - Reinforce the importance of avoiding recreational drug use due to potential neurotoxicity and interactions with prescribed medications. 11/14/2024 Dietary counseling and surveillance (ICD-10 - Z71.3) 1. depression- Celexa 20 mg daily stable 2. Anxiety- has reported improvement - continue therapy Celexa 20 mg daily, Xanax 0.5 mg three times a day Buspar 10 mg twice a day- 3. Panic- Vistaril 25 mg twice a day- patient reported been taking PRN Xanax 0.5 mg three times a day Buspar 10 mg twice a day 4. Primary insomnia- Trazodone 50 mg bedtime continue therapy http_s://www.kirk .org/About-Mental -Illness/Mental-H ealth-Conditions http_s://psychcen eBiosciencecom/depressi on/the-cognitive- niyqwppa-yl-adepr ssion#treatments http__s://www.nim h.nih.gov/health/ topics/mental-hea lth-medications http__s://www.nam i.org/About-Menta l-Illness/Treatme nts/Mental-Health -Medications educated on all medications, benefits, side effects [...] effects including loss of libido, increased suicidal thoughts/behavior s in children and young adults, and serotonin syndrome. Medication Management and Follow-Up - Plan: - Schedule follow-up appointments every 1-3 months to monitor the patient's response to the medication regimen. - Reinforce the importance of avoiding recreational drug use due to potential neurotoxicity and interactions with prescribed medications. 11/14/2024 Encounter for screening for depression (ICD-10 - Z13.31) 1. depression- Celexa 20 mg daily stable 2. Anxiety- has reported improvement - continue therapy Celexa 20 mg daily, Xanax 0.5 mg three times a day Buspar 10 mg twice a day- 3. Panic- Vistaril 25 mg twice a day- patient reported been taking PRN Xanax 0.5 mg three times a day Buspar 10 mg twice a day 4. Primary insomnia- Trazodone 50 mg bedtime continue therapy http_s://www.kirk .org/About-Mental -Illness/Mental-H ealth-Conditions http_s://psychGlenRose Instruments.[employer]/depressi on/the-cognitive- wosubxcw-bs-kkacl ssion#treatments http__s://www.nim h.nih.gov/health/ topics/mental-hea [facility]-medications http__s://www.nam i.org/About-Menta l-Illness/Treatme nts/Mental-Health -Medications educated on all medications, benefits, side effects [...] effects including loss of libido, increased suicidal thoughts/behavior s in children and young adults, and serotonin syndrome. Medication Management and Follow-Up - Plan: - Schedule follow-up appointments every 1-3 months to monitor the patient's response to the medication regimen. - Reinforce the importance of avoiding recreational drug use due to potential neurotoxicity and interactions with prescribed medications. 06/14/2024 Other superintendent terminal (current) drug therapy (ICD-10 - Z79.899) Medication [...] insomnia- Trazodone 50 mg bedtime continue therapy http_s://www.kirk .org/About-Mental -Illness/Mental-H ealth-Conditions http_s://psychHashplex/depressi on/the-cognitive- lmwdrnse-zv-cnocd ssion#treatments http__s://www.nim h.nih.gov/health/ topics/mental-hea lth-medications http__s://www.nam i.org/About-Menta l-Illness/Treatme nts/Mental-Health -Medications educated on all medications, benefits, side effects [...] effects including loss of libido, increased suicidal thoughts/behavior s in children and young adults, and serotonin [...] insomnia- Trazodone 50 mg bedtime continue therapy http_s://www.kirk .org/About-Mental -Illness/Mental-H ealth-Conditions http_s://psychGlenRose Instruments.com/depressi on/the-cognitive- qsiwriwq-pr-dbljb ssion#treatments http__s://www.nim h.nih.gov/health/ topics/mental-hea lth-medications http__s://www.nam i.org/About-Menta l-Illness/Treatme nts/Mental-Health -Medications educated on all medications, benefits, side effects [...] effects including loss of libido, increased suicidal thoughts/behavior s in children and young adults, and serotonin syndrome. Medication Management and Follow-Up - Plan: - Schedule follow-up appointments every 1-3 months to monitor the patient's response to the medication regimen. - Reinforce the importance of avoiding recreational drug use due to potential neurotoxicity and interactions with prescribed medications. 11/14/2024 Panic disorder [episodic paroxysmal anxiety] without agoraphobia (ICD-10 - F41.0) Panic Attacks: Care Instructions material was published 1. depression- Celexa 20 mg daily stable 2. Anxiety- has reported improvement - continue therapy Celexa 20 mg daily, Xanax 0.5 mg three times a day Buspar 10 mg twice a day- 3. Panic- Vistaril 25 mg twice a day- patient reported been taking PRN Xanax 0.5 mg three times a day Buspar 10 mg twice a day 4. Primary insomnia- Trazodone 50 mg bedtime continue therapy http_s://www.kirk .org/About-Mental -Illness/Mental-H ealth-Conditions http_s://psychcen KoolLearningl.com/depressi on/the-cognitive- gvwciumj-ja-abqug ssion#treatments http__s://www.nim h.nih.gov/health/ topics/mental-hea lth-medications http__s://www.nam i.org/About-Menta l-Illness/Treatme nts/Mental-Health -Medications educated on all medications, benefits, side effects [...] effects including loss of libido, increased suicidal thoughts/behavior s in children and young adults, and serotonin syndrome. Medication Management and Follow-Up - Plan: - Schedule follow-up appointments every 1-3 months to monitor the patient's response to the medication regimen. - Reinforce the importance of avoiding recreational drug use due to potential neurotoxicity and interactions with prescribed medications. 11/14/2024 Primary insomnia (ICD-10 - F51.01) Insomnia: Care Instructions material was published 1. depression- Celexa 20 mg daily stable 2. Anxiety- has reported improvement - continue therapy Celexa 20 mg daily, Xanax 0.5 mg three times a day Buspar 10 mg twice a day- 3. Panic- Vistaril 25 mg twice a day- patient reported been taking PRN Xanax 0.5 mg three times a day Buspar 10 mg twice a day 4. Primary insomnia- Trazodone 50 mg bedtime continue therapy http_s://www.kirk .org/About-Mental -Illness/Mental-H ealth-Conditions http_s://psychcen tral.com/depressi on/the-cognitive- fuallntz-ty-skthe ssion#treatments http__s://www.nim h.nih.gov/health/ topics/mental-hea lth-medications http__s://www.nam i.org/About-Menta l-Illness/Treatme nts/Mental-Health -Medications educated on all medications, benefits, side effects [...] effects including loss of libido, increased suicidal thoughts/behavior s in children and young adults, and serotonin syndrome. Medication Management and Follow-Up - Plan: - Schedule follow-up appointments every 1-3 months to monitor the patient's response to the medication regimen. - Reinforce the importance of avoiding recreational drug use due to potential neurotoxicity and interactions with prescribed medications. 11/14/2024 Other superintendent terminal (current) drug therapy (ICD-10 - Z79.899) Medication Refill: Care Instructions material was published 1. depression- Celexa 20 mg daily stable 2. Anxiety- has reported improvement - continue therapy Celexa 20 mg daily, Xanax 0.5 mg three times a day Buspar 10 mg twice a day- 3. Panic- Vistaril 25 mg twice a day- patient reported been taking PRN Xanax 0.5 mg three times a day Buspar 10 mg twice a day 4. Primary insomnia- Trazodone 50 mg bedtime continue therapy http_s://www.kirk .org/About-Mental -Illness/Mental-H ealth-Conditions http_s://psychcen tral.com/depressi on/the-cognitive- ryaybfqf-ap-jewrl ssion#treatments http__s://www.nim h.nih.gov/health/ topics/mental-hea lth-medications http__s://www.nam i.org/About-Menta l-Illness/Treatme nts/Mental-Health -Medications educated on all medications, benefits, side effects [...] effects including loss of libido, increased suicidal thoughts/behavior s in children and young adults, and serotonin syndrome. Medication Management and Follow-Up - Plan: - Schedule follow-up appointments every 1-3 months to monitor the patient's response to the medication regimen. - Reinforce the importance of avoiding recreational drug use due to potential neurotoxicity and interactions with prescribed medications. 11/14/2024 MDD (major depressive disorder), recurrent episode, mild (ICD-10 - F33.0) 1. depression- Celexa 20 mg daily stable 2. Anxiety- has reported improvement - continue therapy Celexa 20 mg daily, Xanax 0.5 mg three times a day Buspar 10 mg twice a day- 3. Panic- Vistaril 25 mg twice a day- patient reported been taking PRN Xanax 0.5 mg three times a day Buspar 10 mg twice a day 4. Primary insomnia- Trazodone 50 mg bedtime continue therapy http_s://www.[facility] .org/About-Mental -Illness/Mental-H ealth-Conditions http_s://psychcen tral.com/depressi on/the-cognitive- zxdrxgdt-nb-ntgcj ssion#treatments http__s://www.nim h.nih.gov/health/ topics/mental-hea [facility]-medications http__s://www.nam i.org/About-Menta l-Illness/Treatme nts/Mental-Health -Medications educated on all medications, benefits, side effects [...] effects including loss of libido, increased suicidal thoughts/behavior s in children and young adults, and serotonin syndrome. Medication Management and Follow-Up - Plan: - Schedule follow-up appointments every 1-3 months to monitor the patient's response to the medication regimen. - Reinforce the importance of avoiding recreational drug use due to potential neurotoxicity and interactions with prescribed medications. Plan Of Treatment Next Appt Details Provider Name:Cassandra Pollard, 04/25/2025 11:00:00 AM, [address], [facility] [address], [place], [address], Provider Name:Lizzette Leon , 05/15/2025 11:45:00 AM, [address], [address], [place], [address], Insurance Providers Payer Name Payer Address Payer Phone Subscriber Number Group Number Insured Name Patient Relationship to Insured Coverage Start Date Coverage End Date Medicare-Ct Medicare [address] [place] [phone] [id number] JESUS FU Self - patient is the insured [facility] [employer] [facility] Supplement [address] [address] [place] [address] [id number] JESUS FU Self - patient is the insured Medical (General) History Medical History History ICD Code Problems: Generalized anxiety disorder Long-term drug therapy Panic disorder without agoraphobia with moderate panic attacks Primary insomnia , Surgical History Surgery Date(Month/Year) Any surgical history 10/25/1997 Tonsilectomy/adenoids 12/19/1967 Removal of gallbladder (48600) 5
== END 2025-04-18 13:47 | disposition home or self-care (01) ==
PROVIDERS: PCP Nurse Practitioner; Visit Provider Urology
DX: N20.0 Calculus of kidney (principal)
CPT/HCPCS: 74018

== ENCOUNTER 2025-07-05 12:30 | Outpatient (RCR) | payer MEDICARE, SELFPAY ==
--- NOTE | 2025-05-24 13:30 | OPREHPOC ---
Outpatient Therapy Plan of Care This is a Multidisciplinary Plan of Care that may contain components documented by all disciplines (PT, OT, and ST.) PT Problem 1 PT Problem #1 Knowledge Deficit PT Goal 1 Goal / Goal Update *independent with HEP Target Visit 8 PT Problem 2 PT Problem #2 Pain PT Goal 1 Goal / Goal Update 1* pt report pain rating at worst of 4/10 2* pt report times of NO pain Target Visit 8 PT Problem 3 PT Problem #3 Impaired Flexibility PT Goal 1 Goal / Goal Update increase active L shoulder ROM to improve use of L arm for self care and home tasks in standin* flexion 140' 2* abduction 130' 3* ER- reach to back of head, palm to back of head 4* IR - reach behind back, fingers to inferior scapula Target Visit 8 PT Problem 4 PT Problem #4 Impaired Strength PT Goal 1 Goal / Goal Update increase strength of L shoulder and scapular musculature to 4/5, to improve use of L arm with reaching overhead and home tasks Target Visit 8
--- NOTE | 2025-05-24 13:30 | PTOPEVAL1 ---
Assessment and note entered by Rashmi Sierra, PT Evaluation Information Assessment Status Evaluation ICD-10 Condition Codes (PT) Pain in left shoulder M25.512 Onset about one year Subjective Information started having pain and more troubles with reaching using L arm; continues to get worst and more annoying pain; R hand dominant; retired; home with , who is disabled and he does all of the home tasks; independent with self and home tasks; Reported Pain Level Pain Score 2: Self Report Additional Pain Score Comments pain range in the past week: 2-7/10; lateral shoulder increase pain: reaching up overhead, decrease pain: rest is not taking any pain meds have not used heat or ice- instruct on PRN use 10- 15 min report with sleeping, shoulder does not awaken him - have insomnia and take meds Assessment PT Clinical Summary Tanner has the diagnosis of L shoulder impingement. He reports gradual increase in pain, without injury to shoulder. The xray was negative. Self assessment DASH rating of 9% limitation in activity level. Pain is increased with reaching forward and overhead. He is able to do all he needs to do with increase in pain. In the past, he had a frozen shoulder, but does not recall which shoulder it was. With the evaluation: poor standing posture with severely rounded shoulders, excessive cervical extension and thoracic kyphosis; decreased active and passive L shoulder ROM in all motions; no tenderness with palpation over L shoulder. Skilled PT services are indicated for modalities to decrease pain, therapeutic exercises to increase shoulder ROM and strength, to improve posture and position of GH joint and education for HEP and posture. Plan of Care Interventions Electrical Stimulation,Hot Pack/Cold Pack,Manual Therapy,Neuro Re-education,Patient/Caregiver Education,Therapeutic Activities,Therapeutic Exercise,Ultrasound,Other Other Interventions taping PT Services Indicated Yes Treatment Frequency and 1-2x/wk for 8 visits Duration These treatments will address the objective and functional deficits as defined above. The patient will be advanced safely and appropriately in order for the patient to progress towards his/her prior level of function. Additional exercises will be introduced and as well as a comprehensive home exercise program upon discharge, if needed, ?to ensure carryover of functional gains achieved in the clinic. This treatment plan has been reviewed and agreement upon by the patient.
--- NOTE | 2025-07-05 13:26 | OPREHPOC ---
Outpatient Therapy Plan of Care This is a Multidisciplinary Plan of Care that may contain components documented by all disciplines (PT, OT, and ST.) PT Problem 1 PT Problem #1 Knowledge Deficit PT Goal 1 Goal / Goal Update *independent with HEP 07-05-25 d/c goal met Target Visit 8 Progress Met PT Problem 2 PT Problem #2 Pain PT Goal 1 Goal / Goal Update 1* pt report pain rating at worst of 4/10 2* pt report times of NO pain 07-05-25 d/c goals met Target Visit 8 Progress Met PT Problem 3 PT Problem #3 Impaired Flexibility PT Goal 1 Goal / Goal Update increase active L shoulder ROM to improve use of L arm for self care and home tasks in standin* flexion 140' 2* abduction 130' 3* ER- reach to back of head, palm to back of head 4* IR - reach behind back, fingers to inferior scapula 07-05-25 d/c goal 3 met. improved with #1 to 130'; #2 to 120; #4 same Target Visit 8 Progress Partially Met PT Problem 4 PT Problem #4 Impaired Strength PT Goal 1 Goal / Goal Update increase strength of L shoulder and scapular musculature to 4/5, to improve use of L arm with reaching overhead and home tasks 07-05-25 d/c goal met Target Visit 8 Progress Met
--- NOTE | 2025-07-05 13:26 | PTOPDC ---
Assessment and note entered by Rashmi Sierra, PT Assessment Status Discharge ICD-10 Condition Codes (PT) Pain in left shoulder M25.512 Onset about one year Subjective Information shoulder is better, can now reach into the back of the refrigerator without hurting now; doing the exercises at home; the resistance bands make my shoulder sore; is doing everything that he usually does with his L arm; only thing that really gets him is taking his coat off; Reported Pain Level Pain Score 1: Self Report Additional Pain Score Comments pain range in the past week 0-4/10; increase pain: taking off coat, decrease pain: rest and not move arm Assessment PT Clinical Summary Tanner has received a total of 8 PT sessions. With today's assessment compared to the initial evaluation: pain rating from 2-7/10 to 0-4/10; self assessment with Quick DASH rating from 9 to 11% limitation in activity level; increase L shoulder ROM and strength; shoulder ROM: pain with flexion, abduction, IR and ER motions & now, IR is the only painful motion improved postural awareness of head, neck and shoulders; education for HEP and posture. L shoulder AROM/PROM: flexion 130'/ 150'; abduction 120/150'; IR- reach behind his back, thumb to inferior edge of scapula and ER- reach to back of head, palm to back of head. The goals were partially achieved. Discharge PT. He is to continue with his HEP and increase in strengthening as tolerated, monitoring pain. Plan of Care PT Services Indicated No
== END 2025-07-05 13:57 | disposition home or self-care (01) ==
LOC: ANHPT 12:30
PROVIDERS: PCP Nurse Practitioner; Visit Provider Physician Assistant Surgical
DX: M25.812 Other specified joint disorders, left shoulder (principal)
CPT/HCPCS: 97110; 97140; 97161; 97530